=== PATIENT | male | born 1930 | race Hispanic/Latino ===

== ENCOUNTER 2017-05-21 12:02 | Inpatient (IN) | payer MEDICARE, MEDICAID ==
--- OUTSIDE RECORDS SUMMARY | 2017-05-21 12:05 | XMS | Clinical Summary ---
:1930 Author Organization [facility] Address [address] [place] [address] Phone Care Team Providers Name Role Phone , Primary Care Provider Unavailable Allergies Not on File Current Medications Not on file Active Problems Not on file Social History Tobacco Use Types Packs/Day Years Used Date Never Assessed Sex Assigned at Date Recorded Not on file Last Filed Vital Signs Not on file Plan of Treatment Not on file Results Not on filefrom Last 3 Months
[2017-05-21 12:34] LABS: #Basophils 0.1 thou/uL (0.0-0.2); #Eosinphils 0.1 thou/uL (0.0-0.7); #Monocytes 0.2 thou/uL (0.11-0.59); #Neutrophils 7.1 thou/uL (1.40-6.50); %Basophils 0.6 % (0.0-1.0); %Eosinophils 0.6 % (0.0-10.0); %Lymphocytes 21.4 % (21.0-51.0); %Monocytes 2.1 % (0.0-10.0); Mean Platelet Volume 7.2 fL (7.4-10.4); White Blood Cell (WBC) Count 9.4 thou/uL (4.8-10.8)
[2017-05-21 12:59] LABS: ALT (SGPT) 14 U/L (8-55); AST (SGOT) 33 U/L (5-34); Alkaline Phosphatase 80 U/L (40-150); Anion Gap 13 mmol/L (10-20); BUN (Urea Nitrogen) 22 mg/dL (8.4-25.7); Bilirubin, Total 0.6 mg/dL (0.2-1.2); CK (CPK) 327 U/L (30-200); Calc. Creatinine Clearance 0 mL/min (70-130); Calcium 9.3 mg/dL (7.8-10.44); Carbon Dioxide 23 mmol/L (23-31); Chloride 102 mmol/L (98-107); Estimated GFR-MDRD 56; Globulin 3.8 g/dL (2.4-3.5); Lipase 13 U/L (8-78); Protein, Total 7.8 g/dL (5.8-8.1)
--- NOTE | 2017-05-21 13:15 | RAD ---
CHEST ONE VIEW: HISTORY: Chest pain. COMPARISON: 02/09/2014 FINDINGS: The cardiac silhouette is magnified by projection. The pulmonary vasculature is unremarkable. Mild linear atelectasis at the left base is stable. Calcified granuloma at the left apex indicates prio r healed granulomatous disease. There is no lobar consolidation or evidence of pneumothorax. IMPRESSION: Chronic type findings are stable. POS: [facility]
[2017-05-21] MEDS ORDERED: Ondansetron HCl/PF 4 MG/2 ML Vial ONE (14:12)
[2017-05-21] MEDS ORDERED: Enoxaparin Sodium 60 MG/0.6 ML SYRINGE ONE (14:12)
[2017-05-21] MEDS ORDERED: Nitroglycerin 2% Ointment 1 INCH/1 GM Packet ONE (14:12)
[2017-05-21] MEDS ORDERED: Metoprolol Tartrate 25 MG TAB ONE (14:12)
[2017-05-21] MEDS ORDERED: Nitroglycerin 0.4 MG TAB (25 Tab Bottle) ONE (14:12)
[2017-05-21] MEDS ORDERED: Mag-Al 1200 mg/1200 mg/30 ML UDCUP ONE (15:01)
[2017-05-21] MEDS ORDERED: Lidocaine Viscous Sol 2% 15 ml UD Cup ONE (15:01)
--- NOTE | 2017-05-21 15:23 | HP ---
PRIMARY CARE PHYSICIAN: Gladys Zhang M.D./Steven Grigsby M.D. REASON FOR ADMISSION: Non-ST elevation myocardial infarction. HISTORY OF PRESENT ILLNESS: An 87-year-old male with a history of dyslipidemia, benign enl argement of prostate, and hypothyroidism, who came to the emergency room with complaint of epigastri c/chest pain. The patient woke up around 4:00 a.m. this morning with complaint of substernal chest pain. At that time, the patient's gave him herbal tree and the patient initially felt little bit better, but after that the patient was having severe epigastric pain about 7/10 in intensity without any radiati ng, associated with nausea, diaphoresis, and mild shortness of breath. The pain persisted for about couple of hours and subsequently they saw primary care physician who advised him to go to the emerg ency room for evaluation. When I saw this patient in the emergency room, his pain is reduced, but still there. He denies any radiation. He denies any fever or chills. He denies any relation of chest discomfort with food, re spiration or activity. He denies any palpitations or syncope. Primary care physician's office gave him aspirin. In the emergency room, workup showed EKG which sh owed nonspecific ST-T changes and significantly abnormal troponin. At this point, the patient is be ing admitted to telemetry unit for non-ST elevation CO. The patient's reports that he had a stress test about [address] De La O which was normal. He denies any melena or hematochezia. At home, he is able to do all routine activities of life. He never had this type of problem in the past. REVIEW OF SYSTEMS: The following complete review of systems was negative, unless otherwise mentione d in the HPI or below: Constitutional: Weight loss or gain, ability to conduct usual activities. Skin: Rash, itching. Eyes: Double vision, pain. ENT/Mouth: Nose bleeding, neck stiffness, pain, tenderness. Cardiovascular: Palpitations, dyspnea on exertion, orthopnea. Respiratory: Shortness of breath, wheezing, cough, hemoptysis, fever or night sweats. Gastrointestinal: Poor appetite, abdominal pain, heartburn, nausea, vomiting, constipation, or diar bert. Genitourinary: Urgency, frequency, dysuria, nocturia. Musculoskeletal: Pain, swelling. Neurologic/Psychiatric: Anxiety, depression. Allergy/Immunologic: Skin rash, bleeding tendency. Please see my HPI for pertinent positives and negatives. All other review of system reviewed and ne gative except as mentioned in the HPI. PAST MEDICAL HISTORY: Benign enlargement of prostate, hypothyroidism, dyslipidemia, chronic low charissa k pain, allergic rhinitis, and senile dementia. PAST PSYCHIATRIC HISTORY: Anxiety. PAST SURGICAL HISTORY: Hernia repair in 2000 and gallbladder surgery in 2007. FAMILY HISTORY: Mother by age of 45 from kidney related disease. One sibling brother pass ed away from stomach cancer. One sibling sister from heart problem and pneumonia. SOCIAL HISTORY: The patient is , lives at home with . No history of tobacco, alcohol or illicit drug abuse. ALLERGIES: No known drug allergies. EMERGENCY ROOM COURSE: Reviewed. CURRENT HOME MEDICATIONS: Vitamin B12 1000 mcg p.o. daily, Osteo Bi-Flex 1 tablet, Proscar 5 mg mable ly, Flomax 0.4 mg p.o. daily, Aricept 5 mg p.o. at bedtime, and Synthroid 75 mcg p.o. daily. PHYSICAL EXAMINATION: VITAL SIGNS: On arrival, blood pressure 137/63, pulse 57, respiratory rate 16, temperature 98.0, sa turation 96% on room air, weight 61.2 kilograms. GENERAL: The patient is currently alert and awake, no obvious acute distress on room air. HEENT: Head: Normocephalic and atraumatic. Eyes: Pupils round and reactive to light. Extraocula r muscles are intact. ENT: Oropharynx within normal limits. Moist mucous membranes. No oral lesi ons. No pharyngeal erythema, no exudate. NECK: Supple. Range of motion is normal. No meningeal signs of irritation, no JVD, no thyromegaly , no carotid bruit. LUNGS: Clear to auscultation without any rhonchi or rales. CARDIAC: S1, S2 regular, bradycardia. No murmur, no gallop, no rub. ABDOMEN: Soft, bowel sounds present, nondistended. No organomegaly, no mass, no suprapubic tendern ess, no Woodall sign. BACK: Unremarkable, no CVA tenderness. EXTREMITIES: Upper extremity: Passive movements of all joints are normal. Lower extremities: No edema. Good peripheral pulsation. SKIN: No skin rash. HEMATOLOGICAL SYSTEM: No lymphadenopathy. PSYCHIATRIC: Normal affect. SIGNIFICANT LABS: EKG based on my review, sinus bradycardia, nonspecific ST-T changes. CBC: WBC 9 .4, hemoglobin 15.5, and platelet 236. BMP: Sodium 134, potassium 4.1, chloride 102, carbon dioxid e 23, anion gap 13, BUN 22, creatinine 1.23, glucose 137, and calcium 9.3. LFT: AST 33, ALT 14, al kaline phosphatase 80, albumin 4.0. CK 327, CK-MB 44.6, and troponin I 1.140. Lipase 13. ASSESSMENT AND PLAN: 1. Non-ST elevation myocardial infarction. This patient's presentation of epigastric and substerna l chest discomfort with nausea, diaphoresis, and shortness of breath and mild EKG changes along with significantly abnormal troponin, all consistent with non-ST elevation myocardial infarction. This patient will need admission. We will keep on telemetry floor. Cardiology will be consulted and he will need a cardiac catheterization. We will keep him n.p.o. until cleared by Cardiology to start d iet. Otherwise, we will keep him n.p.o. after midnight to do cardiac catheterization tomorrow. We will do echocardiography. Meanwhile, we will continue with aspirin 325 mg p.o. daily, nitropatch q. 8 hourly, Lovenox 1 mg per kg subcu twice daily. We will start Lipitor 40 mg p.o. at bedtime and ch jael lipid profile for risk stratification. We will also check thyroid function test. 2. Dyslipidemia. We are starting Lipitor 40 mg p.o. at bedtime and check lipid profile tomorrow. 3. History of hypothyroidism. We will check TSH and will verify his home medication and then start thyroid medication. 4. History of benign prostatic hyperplasia. We will verify his home medication and then we will st art prostate medicine if he is taking at home. 5. Senile dementia, currently stable. 6. Deep venous thrombosis prophylaxis. The patient is already on full dose of Lovenox therapy. 7. Gastrointestinal prophylaxis. Pepcid 20 mg p.o. b.i.d. 8. Code status: The patient is FULL CODE. The patient's is surrogate decision maker. Disposition plan based on clinical course. We are expecting the patient's stay in hospital more sneha n 2 midnights. Plan of care discussed with the patient and family member at bedside in the emergenc y room.
[2017-05-21 15:58] LABS: Troponin I 3.479 ng/mL (< 0.028)
[2017-05-21] MEDS ORDERED: HYDROcodone/Acetaminophen 5/325 mg Tablet PO PRN (16:57)
[2017-05-21] MEDS ORDERED: Senokot 8.6 MG TAB PO PRN (16:57)
[2017-05-21] MEDS ORDERED: Sodium Chloride 0.65% Nasal 44 ML BOT EA NARE PRN (16:57)
[2017-05-21] MEDS ORDERED: Diabetic Tussin 200 MG/10 ML UDCUP PO PRN (16:57)
[2017-05-21] MEDS ORDERED: Artificial Tears 18 DROP/0.9 ML EA EYE PRN (16:57)
[2017-05-21] MEDS ORDERED: Loratadine 10 MG TAB PO PRN (16:57)
[2017-05-21] MEDS ORDERED: Calcium Carbonate 500 MG ChewTAB PO PRN (16:57)
[2017-05-21] MEDS ORDERED: Mag-Al 1200 mg/1200 mg/30 ML UDCUP PO PRN (16:57)
[2017-05-21] MEDS ORDERED: Loperamide HCl 2 MG CAP PO PRN (16:57)
[2017-05-21] MEDS ORDERED: Nitroglycerin 0.4 MG TAB (25 Tab Bottle) SL PRN (16:57)
[2017-05-21] MEDS ORDERED: Eucerin (Mineral Oil/Petrolatum,White) 30 gm Jar TOP PRN (16:57)
[2017-05-21] MEDS ORDERED: Milk Of Magnesia 30 ML UDCUP PO PRN (16:57)
[2017-05-21] MEDS ORDERED: Ondansetron ODT 4 MG TAB PO PRN (16:57)
[2017-05-21] MEDS ORDERED: Zolpidem Tartrate 5 MG TAB PO PRN (16:57)
[2017-05-21] MEDS ORDERED: Ondansetron HCl/PF 4 MG/2 ML Vial IVP PRN (16:57)
--- NOTE | 2017-05-21 18:44 | CON ---
DATE OF CONSULTATION: 05/21/2017 HISTORY OF PRESENT ILLNESS: This 87-year-old gentleman who presented with epigastric and chest disc omfort. The patient has no previous cardiac history and had previously been evaluated for dyspnea. He underwent an echocardiogram which was apparently unremarkable. The patient was in his usual sta te of health when earlier this morning he developed epigastric and chest discomfort. There was a pe rsistent discomfort. He went to see his primary physician, who was sent him to the emergency room. The patient received nitroglycerin and morphine with eventual resolution of his discomfort. The margarita arce denies having any present chest discomfort. PAST MEDICAL HISTORY: Significant for: 1. Hypertension. 2. Dyslipidemia. 3. Dementia. PAST SURGICAL HISTORY: He has had hernia repair and cholecystectomy. SOCIAL HISTORY: He is a nonsmoker. MEDICATIONS: Aricept 5 daily, Flomax 0.4 daily, Proscar 40 daily, and Synthroid 75 daily. ALLERGIES: No known drug allergies. FAMILY HISTORY: Positive family history of coronary artery disease. REVIEW OF SYSTEMS: Noticeable for urgency, short-term memory loss. Ten-point system otherwise unre markable. No history of easy bruising or bleeding. PHYSICAL EXAMINATION: GENERAL: Elderly gentleman in no acute distress. VITAL SIGNS: Blood pressure is 150/70. NECK: Showed no jugular venous distention. LUNGS: Clear to auscultation. HEART: Regular rate and rhythm, normal S1, S2, no murmurs. ABDOMEN: Nondistended. EXTREMITIES: Show no edema. SKIN: Warm and dry. NEUROLOGIC: Nonfocal. VASCULAR: Radial pulses 2+. LABORATORY DATA: White blood count 9.6, hemoglobin 15.5, hematocrit 47.0, platelets 236. Sodium is 134, potassium 4.1, chloride 102, bicarbonate 23, BUN 20, creatinine 1.2, glucose 137. CPK MB was 44.6. Troponin is 3.4. EKG revealed sinus bradycardia, otherwise normal ECG. IMPRESSION: 1. Non-Q-wave myocardial infarction. 2. Hypertension. 3. Dyslipidemia. 4. Dementia. This gentleman presents with a non-Q-wave myocardial infarction with his advanced age and dementia. We would recommend medical therapy. The patient is being treated with aspirin, beta jaspal therap y and nitro paste. We would recommend adding lipid lowering medication. We will obtain an echocard iogram. We will follow this patient with you through his hospitalization.
[2017-05-21 19:24] LABS: Troponin I 8.818 ng/mL (< 0.028)
[2017-05-21] MEDS ORDERED: Sodium Chloride 0.9% 10 ML ONE (20:14)
[2017-05-21] MEDS ORDERED: Metoprolol Tartrate 25 MG TAB PO SCH (21:00)
[2017-05-21] MEDS ORDERED: Enoxaparin Sodium 80 MG/0.8 ML SYRINGE SC SCH (21:00)
[2017-05-21] MEDS ORDERED: Atorvastatin Calcium 20 MG TAB PO SCH (21:00)
[2017-05-21] MEDS: Tamsulosin HCl 0.4 MG CAP PO SCH (21:21)
[2017-05-21] MEDS: Metoprolol Tartrate 25 MG TAB PO SCH (21:21)
[2017-05-21] MEDS: Atorvastatin Calcium 40 MG TAB PO SCH (21:21)
[2017-05-21] MEDS: Enoxaparin Sodium 60 MG/0.6 ML SYRINGE SC SCH (21:23)
[2017-05-21] MEDS: Famotidine 20 MG TAB PO SCH (21:23)
[2017-05-21] MEDS: Nitroglycerin 2% Ointment 1 INCH/1 GM Packet TOP SCH (21:23)
[2017-05-21] MEDS ORDERED: Nitroglycerin 2% Ointment 1 INCH/1 GM Packet TOP SCH (22:00)
[2017-05-22 05:14] LABS: #Eosinphils 0.7 thou/uL (0.0-0.7); #Lymphocytes 3.1 thou/uL (1.20-3.40); #Monocytes 0.8 thou/uL (0.11-0.59); #Neutrophils 6.4 thou/uL (1.40-6.50); %Basophils 0.2 % (0.0-1.0); %Eosinophils 6.1 % (0.0-10.0); %Lymphocytes 28.1 % (21.0-51.0); %Monocytes 7.1 % (0.0-10.0); Hematocrit 42.8 % (42.0-52.0); Mean Platelet Volume 7.9 fL (7.4-10.4); Red Blood Cell (RBC) Count 4.57 mill/uL (4.70-6.10); White Blood Cell (WBC) Count 10.9 thou/uL (4.8-10.8)
[2017-05-22 05:15] LABS: Hematocrit 42.5 % (42.0-52.0)
[2017-05-22 05:42] LABS: Anion Gap 13 mmol/L (10-20); BUN (Urea Nitrogen) 19 mg/dL (8.4-25.7); Calc. Creatinine Clearance 42 mL/min (70-130); Calcium 8.5 mg/dL (7.8-10.44); Carbon Dioxide 22 mmol/L (23-31); Chloride 105 mmol/L (98-107); Cholesterol 214 mg/dl (< 200 Desired); Estimated GFR-MDRD 71; LDL Cholesterol, Calculated 148 mg/dL
[2017-05-22] MEDS: Nitroglycerin 2% Ointment 1 INCH/1 GM Packet TOP SCH ×3 (06:00→20:35)
[2017-05-22] MEDS: Famotidine 20 MG TAB PO SCH ×2 (08:34→20:35)
[2017-05-22] MEDS: Metoprolol Tartrate 25 MG TAB PO SCH ×2 (08:34→20:35)
[2017-05-22] MEDS: Lisinopril 2.5 MG TAB PO SCH (08:34)
[2017-05-22] MEDS: Aspirin 325 mg Enteric Coated Tablet PO SCH (08:35)
[2017-05-22] MEDS ORDERED: Aspirin 325 MG TAB PO SCH (09:00)
[2017-05-22] MEDS ORDERED: Communication Order-Pharmacy FS SCH (10:30)
[2017-05-22] MEDS: Sodium Chloride 0.9% 1,000 ML IV SCH ×2 (10:57→20:36)
[2017-05-22 11:18] LABS: Magnesium 1.9 mg/dL (1.6-2.6)
[2017-05-22] MEDS ORDERED: Midazolam HCl 2 mg/2 ml Vial ONE (12:41)
[2017-05-22] MEDS ORDERED: Fentanyl 100 MCG/2 ML VIAL ONE (12:41)
--- NOTE | 2017-05-22 12:48 | PRG ---
DATE OF SERVICE: 05/22/2017 Mr. Torres's symptoms have improved. No recurrent episodes of chest pain. His peak troponin was 8. I had a long discussion with the family on how to proceed. He has no previous history of underlying coronary disease. I presented options including coronary angiography versus medical therapy. Afte r outlining both and after discussion with their immediate family, it was decided to proceed with co ronary angiography. I discussed the procedure in full detail with the patient as well as with his w cora. The risks of the procedure included, but are not limited to the following: , stroke, [place], need for emergency surgery, loss of limb, bleeding, and infection, as well as a r eaction to the dye causing kidney failure and needing long-term dialysis. I also discussed the risk s of PCI to include all of the above including coronary dissection and perforation in addition to ac trey stent thrombosis and restenosis. All questions about the procedure were answered. Given the ab ove, the patient agreed to proceed with coronary angiography and possible PCI. All questions were answered. I also discussed drug-coated versus non-drug coated stent placement. There is no contraindication, will proceed if needed. Further recommendations pending the above.
[2017-05-22] MEDS ORDERED: Acetaminophen/Codeine 30-300mg Tablet PO PRN ×2 (12:57)
[2017-05-22] MEDS ORDERED: Nitroglycerin 0.4 MG TAB (25 Tab Bottle) SL PRN (12:57)
[2017-05-22] MEDS ORDERED: traMADol HCl 50 MG TAB PO PRN (12:57)
[2017-05-22] MEDS: K-Phos Neutral 250 MG TAB PO SCH ×3 (13:00→20:34)
[2017-05-22] MEDS ORDERED: Sodium Chloride 0.9% 200 ML IV SCH (13:00)
[2017-05-22] MEDS: Enoxaparin Sodium 60 MG/0.6 ML SYRINGE SC SCH (13:38)
[2017-05-22] MEDS ORDERED: Iopamidol 370 76% 100 ML VIAL ONE (14:32)
[2017-05-22] MEDS: Tamsulosin HCl 0.4 MG CAP PO SCH (20:35)
[2017-05-22] MEDS: Atorvastatin Calcium 40 MG TAB PO SCH (20:35)
--- NOTE | 2017-05-22 22:23 | PDOC.PN ---
- Subjective Encounter Start Date: 05/22/17 Encounter Start Time: 10:30 Patient seen and examined. No new complaints. No overnight events. Cath today. No CP - Objective Resuscitation Status: Resuscitation Status FULL:Full Resuscitation MAR Reviewed: Yes Vital Signs & Weight: Vital Signs (12 hours) Temp Pulse Resp BP Pulse Ox 05/22/17 20:43 99.0 F 72 20 148/67 H 93 L 05/22/17 16:06 99.3 F 77 16 127/71 96 05/22/17 13:30 97.8 F 56 L 18 134/65 95 Weight Weight 128 lb 4.8 oz I&O: 05/21/17 05/22/17 05/23/17 06:59 06:59 06:59 Intake Total 210 538 Output Total 100 Balance 110 538 Result Diagrams: 05/23/17 05:21 05/23/17 05:21 Phys Exam - Physical Examination Constitutional: NAD Respiratory: no wheezing, no rhonchi Cardiovascular: RRR, no rub Gastrointestinal: soft, non-tender, positive bowel sounds Musculoskeletal: no edema Neurological: moves all 4 limbs Dx/Plan (1) NSTEMI (non-ST elevated myocardial infarction) Code(s): I21.4 - NON-ST ELEVATION (NSTEMI) MYOCARDIAL INFARCTION Status: Acute (2) BPH (benign prostatic hyperplasia) Code(s): N40.0 - BENIGN PROSTATIC HYPERPLASIA WITHOUT LOWER URINRY TRACT SYMP Status: Chronic (3) Dyslipidemia Code(s): E78.5 - HYPERLIPIDEMIA, UNSPECIFIED Status: Chronic (4) CKD (chronic kidney disease) stage 2, GFR 60-89 ml/min Code(s): N18.2 - CHRONIC KIDNEY DISEASE, STAGE 2 (MILD) Status: Chronic (5) HTN (hypertension) Code(s): I10 - ESSENTIAL (PRIMARY) HYPERTENSION Status: Chronic (6) Dementia Code(s): F03.90 - UNSPECIFIED DEMENTIA WITHOUT BEHAVIORAL DISTURBANCE Status: Chronic (7) Hypothyroidism Code(s): E03.9 - HYPOTHYROIDISM, UNSPECIFIED Status: Chronic - Plan cont current plan of care, DVT proph w/SCDs * Cont current meds as below * AM labs * Cardiology following * Cont to monitor * Cont ASA/Statins/Lovenox/ACEI * Cath today Review of Systems - Review of Systems Constitutional: negative: Fever, Chills, Sweats, Weakness, Malaise, Other Respiratory: negative: Cough, Dry, Shortness of Breath, Hemoptysis, SOB with Excertion, Pleuritic Pain, Sputum, Wheezing Cardiovascular: negative: Chest Pain, Palpitations, Orthopnea, Paroxysmal Noc. Dyspnea, Edema, Light Headedness, Other Gastrointestinal: negative: Nausea, Vomiting, Abdominal Pain, Diarrhea, Constipation, Melena, Hematochezia, Other - Medications/Allergies Allergies/Adverse Reactions: Allergies Allergy/AdvReac Type Severity Reaction Status Date / Time No Known Allergies Allergy Verified 05/21/17 17:03 Medications: Current Medications Acetaminophen (Tylenol) 650 mg PO Q4H PRN PRN Reason: Headache/Fever or Pain Acetaminophen/Codeine Phosphate (Tylenol #3) 1 tab PO Q4H PRN PRN Reason: Mild Pain (1-3) Acetaminophen/Codeine Phosphate (Tylenol #3) 2 tab PO Q4H PRN PRN Reason: Moderate Pain (4-6) Hydrocodone Bitart/Acetaminophen ([place] 5/325) 1 tab PO Q4H PRN PRN Reason: Moderate Pain (4-6) Al Hydroxide/Mg Hydroxide (Maalox) 30 ml PO Q6H PRN PRN Reason: Heartburn or Indigestion Artificial Tears (Tears Naturale) 0 drop EA EYE PRN PRN PRN Reason: Dry Eyes Aspirin (Ecotrin) 325 mg PO DAILY [facility], [facility] Last Admin: 05/22/17 08:35 Dose: Not Given Atorvastatin Calcium (Lipitor) 40 mg PO HS [facility], [facility] Last Admin: 05/22/17 20:35 Dose: 40 mg Calcium Carbonate (Tums) 1,000 mg PO Q4H PRN PRN Reason: Heartburn or Indigestion Famotidine (Pepcid) 20 mg PO BID [facility] Last Admin: 05/22/17 20:35 Dose: 20 mg Guaifenesin (Robitussin Sf) 200 mg PO Q4H PRN PRN Reason: Cough Hydralazine HCl (Apresoline) 10 mg SLOW IVP Q4H PRN PRN Reason: Systolic BP > 180 Sodium Chloride (Normal Saline 0.9%) 1,000 mls @ 100 mls/hr IV .Q10H [facility], [facility] Last Admin: 05/22/17 20:36 Dose: Not Given Lisinopril (Zestril) 2.5 mg PO DAILY [facility] Last Admin: 05/22/17 08:34 Dose: Not Given Loperamide HCl (Imodium) 2 mg PO PRN PRN PRN Reason: Diarrhea/Loose Stools Loratadine (Claritin) 10 mg PO DAILYPRN PRN PRN Reason: Sinus Symptoms Magnesium Hydroxide (Milk Of Magnesium) 30 ml PO DAILYPRN PRN PRN Reason: Constipation Metoprolol Tartrate (Lopressor) 12.5 mg PO BID [facility] Last Admin: 05/22/17 20:35 Dose: 12.5 mg Mineral Oil/White Petrolatum (Eucerin Cream) 0 gm TOP BIDPRN PRN PRN Reason: Dry Skin Nitroglycerin (Nitro-Bid 2% Ointment) 0.5 inch TOP Q8HR [facility] Last Admin: 05/22/17 20:35 Dose: 0.5 inch Nitroglycerin (Nitrostat) 0.4 mg SL Q5MIN PRN PRN Reason: Chest Pain Ondansetron HCl (Zofran Odt) 4 mg PO Q6H PRN PRN Reason: Nausea/Vomiting Ondansetron HCl (Zofran) 4 mg IVP Q6H PRN PRN Reason: Nausea/Vomiting Phosphorus (Kphos Neutral) 500 mg PO QID-WM [facility] Last Admin: 05/22/17 20:34 Dose: 500 mg Senna (Senokot) 2 tab PO HSPRN PRN PRN Reason: Constipation Sodium Chloride ([employer] Nasal [place] 0.65%) 0 ml EA NARE QIDPRN PRN PRN Reason: Nasal Congestion Sodium Chloride (Flush - Normal Saline) 10 ml IVF Q12HR [facility] Last Admin: 05/22/17 20:24 Dose: Not Given Sodium Chloride (Flush - Normal Saline) 10 ml IVF PRN PRN PRN Reason: Saline Flush Tamsulosin HCl (Flomax) 0.4 mg PO HS [facility] Last Admin: 05/22/17 20:35 Dose: 0.4 mg Tramadol HCl (Ultram) 50 mg PO Q6H PRN PRN Reason: Moderate Pain (4-6) Zolpidem Tartrate (Ambien) 5 mg PO HSPRN PRN PRN Reason: Insomnia
[2017-05-23 05:38] LABS: #Eosinphils 0.4 thou/uL (0.0-0.7); #Lymphocytes 3.2 thou/uL (1.20-3.40); #Monocytes 1.1 thou/uL (0.11-0.59); #Neutrophils 7.1 thou/uL (1.40-6.50); %Basophils 0.3 % (0.0-1.0); %Eosinophils 3.5 % (0.0-10.0); %Lymphocytes 26.8 % (21.0-51.0); %Monocytes 9.5 % (0.0-10.0); Hematocrit 41.7 % (42.0-52.0); Mean Platelet Volume 7.5 fL (7.4-10.4); Red Blood Cell (RBC) Count 4.46 mill/uL (4.70-6.10); White Blood Cell (WBC) Count 11.8 thou/uL (4.8-10.8)
[2017-05-23] MEDS: Nitroglycerin 2% Ointment 1 INCH/1 GM Packet TOP SCH ×2 (05:39→14:29)
[2017-05-23 06:03] LABS: Anion Gap 9 mmol/L (10-20); BUN (Urea Nitrogen) 19 mg/dL (8.4-25.7); Calc. Creatinine Clearance 34 mL/min (70-130); Carbon Dioxide 23 mmol/L (23-31); Chloride 106 mmol/L (98-107); Estimated GFR-MDRD 57; Magnesium 1.8 mg/dL (1.6-2.6); Phosphorus 3.1 mg/dL (2.3-4.7)
[2017-05-23] MEDS: K-Phos Neutral 250 MG TAB PO SCH ×6 (08:51→20:16)
[2017-05-23] MEDS: Lisinopril 2.5 MG TAB PO SCH (08:51)
[2017-05-23] MEDS: Metoprolol Tartrate 25 MG TAB PO SCH ×2 (08:51→20:17)
[2017-05-23] MEDS: Famotidine 20 MG TAB PO SCH ×2 (08:51→20:17)
[2017-05-23] MEDS: Aspirin 325 mg Enteric Coated Tablet PO SCH (08:51)
[2017-05-23] MEDS: Sodium Chloride 0.9% 1,000 ML IV SCH ×4 (08:52→23:39)
[2017-05-23 09:24] LABS: Bilirubin Negative (Negative); Blood, Urine Negative (Negative); Glucose, Urine (Dipstick) Negative (Negative); Ketone, Urine Negative (Negative); Nitrite Negative (Negative); Protein, Urine (Dipstick) Negative (Neg-Trace); Urobilinogen 0.2 mg/dL (0.2-1.0)
[2017-05-23 09:26] LABS: Bacteria/HPF None Seen HPF (None Seen); Hyaline Casts/LPF 0-3 HYALINE CAST LPF (0-3 Hyaline); RBC/HPF 0-3 HPF (0-3); Squamous Epithelial None Seen HPF (0-3); WBC/HPF 0-3 HPF (0-3)
[2017-05-23] MEDS ORDERED: Loperamide HCl 2 MG CAP PO PRN (11:04)
[2017-05-23] MEDS ORDERED: ISOVUE-370 76%-LOCM 1 ML ONE (15:05)
[2017-05-23] MEDS: Clopidogrel Bisulfate 300 MG TAB PO SCH ×2 (16:36→18:21)
--- NOTE | 2017-05-23 16:52 | CON ---
DATE OF SERVICE: 05/23/2017 SUBJECTIVE: Mr. Torres is doing well. No recurrent episodes of chest pain or pressure noted. No sh ortness of breath. PHYSICAL EXAMINATION: VITAL SIGNS: Blood pressure 119/57, pulse 58, and temperature 98. LUNGS: Clear to auscultation. CARDIAC: Regular rate and rhythm. ABDOMEN: Soft, nontender, and nondistended. EXTREMITIES: No edema. IMPRESSION: 1. Non-Q wave myocardial infarction. 2. Severe multivessel disease. 3. Underlying dementia. RECOMMENDATIONS: I had a long discussion today with the family. Options included bypass surgery ve rsus percutaneous intervention versus medical therapy. After outlining all 3 options including risk s and benefits of each, the family decided to opt for medical therapy. They are not interested in b ypass surgery, given his comorbidities, age and underlying dementia. I did contemplate proceeding w ith stent placement to the LAD and circumflex artery. Unfortunately, I am unsure whether his non-Q [place] originated from the [place] [place] or LAD. Overall, LVEF does appear normal on recent echo. At this poi nt, we will proceed with medical therapy per family's wishes. We will add low dose nitroglycerin fo r symptom relief. Decrease aspirin to 81 q.a.m. and add Plavix. Continue metoprolol in addition to atorvastatin. If stable from my standpoint, it would be okay for discharge home in a.m. with close outpatient followup.
[2017-05-23 17:00] LABS: #Basophils 0.1 thou/uL (0.0-0.2); #Lymphocytes 3.6 thou/uL (1.20-3.40); #Monocytes 1.2 thou/uL (0.11-0.59); #Neutrophils 6.2 thou/uL (1.40-6.50); %Basophils 0.8 % (0.0-1.0); %Eosinophils 8.5 % (0.0-10.0); %Lymphocytes 29.4 % (21.0-51.0); %Monocytes 9.9 % (0.0-10.0); Hematocrit 40.8 % (42.0-52.0); Mean Platelet Volume 7.8 fL (7.4-10.4); Red Blood Cell (RBC) Count 4.33 mill/uL (4.70-6.10); White Blood Cell (WBC) Count 12.1 thou/uL (4.8-10.8)
[2017-05-23 17:03] LABS: PTT 32.9 SEC (22.9-36.1); Prothrombin Time 14.1 SEC (12.0-14.7)
[2017-05-23 17:16] LABS: ALT (SGPT) 20 U/L (8-55); AST (SGOT) 58 U/L (5-34); Alkaline Phosphatase 69 U/L (40-150); Anion Gap 11 mmol/L (10-20); BUN (Urea Nitrogen) 24 mg/dL (8.4-25.7); Bilirubin, Total 0.6 mg/dL (0.2-1.2); Calc. Creatinine Clearance 26 mL/min (70-130); Calcium 7.7 mg/dL (7.8-10.44); Carbon Dioxide 22 mmol/L (23-31); Chloride 108 mmol/L (98-107); Estimated GFR-MDRD 41; Globulin 2.8 g/dL (2.4-3.5)
[2017-05-23 17:23] LABS: Troponin I 17.388 ng/mL (< 0.028)
[2017-05-23] MEDS ORDERED: Sodium Chloride 0.9% 1,000 ML IV SCH (17:30)
--- NOTE | 2017-05-23 18:13 | PDOC.PN ---
- Subjective Encounter Start Date: 05/23/17 Encounter Start Time: 10:00 Patient seen and examined. No new complaints. No overnight events. - Objective Resuscitation Status: Resuscitation Status FULL:Full Resuscitation MAR Reviewed: Yes Vital Signs & Weight: Vital Signs (12 hours) Temp Pulse Pulse Pulse Resp BP BP 05/23/17 17:25 98.4 F 66 18 05/23/17 16:16 98.1 F 63 15 05/23/17 13:14 75 63 114/58 L 125/61 05/23/17 11:21 98.0 F 58 L 16 05/23/17 08:51 66 05/23/17 08:48 98.0 F 66 19 05/23/17 07:44 99.7 F H 69 18 BP BP Pulse Ox Pulse Ox Pulse Ox 05/23/17 17:25 119/60 98 05/23/17 16:16 119/57 L 96 05/23/17 13:14 94 L 96 05/23/17 11:21 119/57 L 94 L 05/23/17 08:51 05/23/17 08:48 122/58 L 95 05/23/17 07:44 95 Weight Weight 126 lb 4.8 oz I&O: 05/22/17 05/23/17 05/24/17 06:59 06:59 06:59 Intake Total 210 1438 Output Total 100 75 Balance 110 1363 Result Diagrams: 05/23/17 16:49 05/23/17 16:49 EKG Reviewed by me: Yes (Tele SR) Phys Exam - Physical Examination Constitutional: NAD Respiratory: no wheezing, no rhonchi Cardiovascular: RRR, no rub Gastrointestinal: soft, non-tender, positive bowel sounds Musculoskeletal: no edema Neurological: non-focal, moves all 4 limbs Psychiatric: A&O x 3 Dx/Plan (1) NSTEMI (non-ST elevated myocardial infarction) Code(s): I21.4 - NON-ST ELEVATION (NSTEMI) MYOCARDIAL INFARCTION Status: Acute Comment: 3 V CAD (2) BPH (benign prostatic hyperplasia) Code(s): N40.0 - BENIGN PROSTATIC HYPERPLASIA WITHOUT LOWER URINRY TRACT SYMP Status: Chronic (3) Dyslipidemia Code(s): E78.5 - HYPERLIPIDEMIA, UNSPECIFIED Status: Chronic (4) CKD (chronic kidney disease) stage 2, GFR 60-89 ml/min Code(s): N18.2 - CHRONIC KIDNEY DISEASE, STAGE 2 (MILD) Status: Chronic (5) HTN (hypertension) Code(s): I10 - ESSENTIAL (PRIMARY) HYPERTENSION Status: Chronic (6) Dementia Code(s): F03.90 - UNSPECIFIED DEMENTIA WITHOUT BEHAVIORAL DISTURBANCE Status: Chronic (7) Hypothyroidism Code(s): E03.9 - HYPOTHYROIDISM, UNSPECIFIED Status: Chronic - Plan cont current plan of care, plan discussed w/ family, DVT proph w/SCDs * Await Cardio input * Cont to monitor * Cont ASA/BB/Statins * DC Ntg patch * AM labs Review of Systems - Review of Systems Constitutional: negative: Fever, Chills, Sweats, Weakness, Malaise, Other Respiratory: negative: Cough, Dry, Shortness of Breath, Hemoptysis, SOB with Excertion, Pleuritic Pain, Sputum, Wheezing Cardiovascular: negative: Chest Pain, Palpitations, Orthopnea, Paroxysmal Noc. Dyspnea, Edema, Light Headedness, Other Gastrointestinal: negative: Nausea, Vomiting, Abdominal Pain, Diarrhea, Constipation, Melena, Hematochezia, Other - Medications/Allergies Allergies/Adverse Reactions: Allergies Allergy/AdvReac Type Severity Reaction Status Date / Time No Known Allergies Allergy Verified 05/21/17 17:03 Medications: Current Medications Acetaminophen (Tylenol) 650 mg PO Q4H PRN PRN Reason: Headache/Fever or Pain Hydrocodone Bitart/Acetaminophen ([place] 5/325) 1 tab PO Q4H PRN PRN Reason: Moderate Pain (4-6) Al Hydroxide/Mg Hydroxide (Maalox) 30 ml PO Q6H PRN PRN Reason: Heartburn or Indigestion Artificial Tears (Tears Naturale) 0 drop EA EYE PRN PRN PRN Reason: Dry Eyes Aspirin (Aspirin Chewable) 81 mg PO DAILY [facility] Atorvastatin Calcium (Lipitor) 40 mg PO HS [facility] Last Admin: 05/22/17 20:35 Dose: 40 mg Calcium Carbonate (Tums) 1,000 mg PO Q4H PRN PRN Reason: Heartburn or Indigestion Clopidogrel Bisulfate (Plavix) 300 mg PO NOW [facility] Stop: 05/23/17 18:30 Clopidogrel Bisulfate (Plavix) 75 mg PO DAILY [facility] Famotidine (Pepcid) 20 mg PO BID [facility] Last Admin: 05/23/17 08:51 Dose: 20 mg Guaifenesin (Robitussin Sf) 200 mg PO Q4H PRN PRN Reason: Cough Heparin Sodium (Porcine) (Heparin) 5,000 units SC Q12HR [facility] Hydralazine HCl (Apresoline) 10 mg SLOW IVP Q4H PRN PRN Reason: Systolic BP > 180 Sodium Chloride (Normal Saline 0.9%) 1,000 mls @ 150 mls/hr IV .Q6H40M [facility] Isosorbide Mononitrate (Imdur Er) 30 mg PO DAILY [facility] Loperamide HCl (Imodium) 2 mg PO PRN PRN PRN Reason: Diarrhea/Loose Stools Loratadine (Claritin) 10 mg PO DAILYPRN PRN PRN Reason: Sinus Symptoms Magnesium Hydroxide (Milk Of Magnesium) 30 ml PO DAILYPRN PRN PRN Reason: Constipation Metoprolol Tartrate (Lopressor) 12.5 mg PO BID [facility] Last Admin: 05/23/17 08:51 Dose: 12.5 mg Mineral Oil/White Petrolatum (Eucerin Cream) 0 gm TOP BIDPRN PRN PRN Reason: Dry Skin Nitroglycerin (Nitrostat) 0.4 mg SL Q5MIN PRN PRN Reason: Chest Pain Ondansetron HCl (Zofran Odt) 4 mg PO Q6H PRN PRN Reason: Nausea/Vomiting Ondansetron HCl (Zofran) 4 mg IVP Q6H PRN PRN Reason: Nausea/Vomiting Phosphorus (Kphos Neutral) 500 mg PO QID-[facility] Last Admin: 05/23/17 18:08 Dose: Not Given Potassium Chloride (Klor-Con) 20 meq PO QAM-[facility] Last Admin: 05/23/17 08:52 Dose: 20 meq Senna (Senokot) 2 tab PO HSPRN PRN PRN Reason: Constipation Sodium Chloride ([place] Nasal [place] 0.65%) 0 ml EA NARE QIDPRN PRN PRN Reason: Nasal Congestion Sodium Chloride (Flush - Normal Saline) 10 ml IVF Q12HR [facility] Last Admin: 05/23/17 08:52 Dose: Not Given Sodium Chloride (Flush - Normal Saline) 10 ml IVF PRN PRN PRN Reason: Saline Flush Tamsulosin HCl (Flomax) 0.4 mg PO [facility] Last Admin: 05/22/17 20:35 Dose: 0.4 mg Tramadol HCl (Ultram) 50 mg PO Q6H PRN PRN Reason: Moderate Pain (4-6)
--- NOTE | 2017-05-23 18:14 | PDOC.EVN ---
Event Note - Event Note Event Note: Stroke alert was called due to new RUE weakness. CT brain/CTA done. Repeat labs noted. Will start IV hydration for AILYN. AM labs
--- NOTE | 2017-05-23 19:15 | CT ---
CT OF HEAD NONCONTRAST: 05/23/17 CLINICAL HISTORY: New right arm numbness. FINDINGS: There is no evidence of acute intracranial hemorrhage, mass effect, midline shift or significant ishmael triculomegaly. There is mild age related parenchymal volume loss. Head CT is grossly stable to . IMPRESSION: No acute intracranial hemorrhage or mass effect. Telephone call to findings placed to ordering physician, Nila Woodward at 1703 hours, 05/23/17 Code CR POS: LAUREN
--- NOTE | 2017-05-23 19:23 | CT ---
CTA HEAD WITH 3D VOLUME RENDERING CT NECK WITH 3D VOLUME RENDERING 05/23/17 CLINICAL HISTORY: New right arm numbness. FINDINGS: There is prominent, bulky noncalcified atheromatous plaque of the junction of the aortic arch and de scending thoracic aorta in addition to scattered vascular calcification. The bilateral subclavian ar teries are contrast opacified and there is a mild to moderate focal narrowing involving the proximal left subclavian artery due to noncalcified plaque at its origin arising from the above described bu lky plaque of the aorta. There is mild to moderate focal stenosis involving the brachiocephalic trun k and proximal aspect of right subclavian artery. There are tortuous bilateral common carotid arteri es with mild areas of atherosclerotic plaque and associated mild luminal narrowing. There is calcifi cation involving each carotid bifurcation. The bilateral cervical ICA revealed no high grade focal s tenosis or occlusion. Calcification present at each carotid terminus, mild in degree. No high grade focal stenosis involving either MCA. Sylvian branches are grossly symmetric, bilaterally. There is a dominant right vertebral artery. No high grade vertebral artery or basilar artery stenosis. Bilater al CONVEYANCER are grossly patent. There is a diffuse mild narrowing of the M1 segment left MCA, which could relate to early branching or could relate to a concentric mild narrowing, although there is no obvious focal luminal thrombus or high grade stenosis. there is a tiny triangular shaped contrast opacification at the undersurface of the terminal left ICA which likely relates to an infundibulum at the site of the small caliber P COM. The bilateral GIRISH reveal no high grade stenosis or occlusion. IMPRESSION: Scattered atherosclerotic disease as above, without a definitively evident high grade stenosis or oc clusion. POS: LAUREN
[2017-05-23] MEDS: Tamsulosin HCl 0.4 MG CAP PO SCH (20:16)
[2017-05-23] MEDS: Atorvastatin Calcium 40 MG TAB PO SCH (20:17)
[2017-05-23] MEDS ORDERED: Heparin 5,000 UNITS/ML VIAL SC SCH (21:00)
[2017-05-24] MEDS: Acetaminophen 325 MG TAB PO PRN ×2 (00:18→16:27)
[2017-05-24] MEDS ORDERED: Aspirin 300 MG Suppository ONE (03:04)
--- NOTE | 2017-05-24 03:13 | PDOC.PN ---
- Subjective Encounter Start Date: 05/24/17 Encounter Start Time: 02:40 Contacted by nursing at 0240 regarding recurrance of his RUE wekaness. asked to get the head CT stat. a few minutes later, Robert reported to nurses that he now has slurred speech. Aracely martin was called and i promptly came to the bedside for full eval. 0240 onset of symptoms. - Objective Resuscitation Status: Resuscitation Status FULL:Full Resuscitation MAR Reviewed: Yes Vital Signs & Weight: Vital Signs (12 hours) Temp Pulse Pulse Resp Resp BP BP 05/23/17 23:43 98.3 F 71 18 129/66 05/23/17 20:33 98.1 F 71 16 05/23/17 19:24 98.1 F 71 16 05/23/17 17:25 98.4 F 66 18 05/23/17 16:45 66 19 130/66 05/23/17 16:16 98.1 F 63 15 BP BP Pulse Ox Pulse Ox 05/23/17 23:43 95 05/23/17 20:33 138/68 95 05/23/17 19:24 95 05/23/17 17:25 119/60 98 05/23/17 16:45 98 05/23/17 16:16 119/57 L 96 Weight Weight 126 lb 4.8 oz I&O: 05/22/17 05/23/17 05/24/17 06:59 06:59 06:59 Intake Total 210 1438 890 Output Total 100 75 Balance 110 1363 890 Result Diagrams: 05/23/17 16:49 05/23/17 16:49 Additional Labs: Accuchecks 05/23/17 16:45 POC Glucose 87 Radiology Reviewed by me: Yes EKG Reviewed by me: Yes Phys Exam - Physical Examination Constitutional: NAD HEENT: PERRLA, moist MMs, sclera anicteric, oral pharynx no lesions Neck: no nodes, no JVD, supple, full ROM Respiratory: no wheezing, no rales, no rhonchi, clear to auscultation bilateral Cardiovascular: RRR, no significant murmur, no rub, gallop Gastrointestinal: soft, non-tender, no distention, positive bowel sounds Musculoskeletal: no edema DP and PT pulses not palpable, but feet warm, cap refill 3 sec slurrred speech per , tlaking in turkmen only LUE, BLE, bilaterla shoulder 5/5 strength. RUE ext/flex/miter saw operator 1/5. CN intac Lymphatic: no nodes Psychiatric: normal affect, A&O x 3 Dx/Plan (1) Stroke-like symptoms Code(s): R29.90 - UNSPECIFIED SYMPTOMS AND SIGNS INVOLVING THE NERVOUS SYSTEM Status: Acute Comment: cant fit the lesion, shoulder strength okay, remainder of arm not. give 300mg aspirin rectally, stat head CT, MRI orderedfor later. already on plavix. (2) NSTEMI (non-ST elevated myocardial infarction) Code(s): I21.4 - NON-ST ELEVATION (NSTEMI) MYOCARDIAL INFARCTION Status: Acute Comment: 3 V CAD (3) CKD (chronic kidney disease) stage 2, GFR 60-89 ml/min Code(s): N18.2 - CHRONIC KIDNEY DISEASE, STAGE 2 (MILD) Status: Chronic Comment: no dosage adjustment needed at present. (4) HTN (hypertension) Code(s): I10 - ESSENTIAL (PRIMARY) HYPERTENSION Status: Chronic Qualifiers: Hypertension type: essential hypertension Qualified Code(s): I10 - Essential (primary) hypertension - Plan cont current plan of care, plan discussed w/ family * .
[2017-05-24 03:18] LABS: #Basophils 0.1 thou/uL (0.0-0.2); #Eosinphils 0.9 thou/uL (0.0-0.7); #Lymphocytes 3.6 thou/uL (1.20-3.40); #Monocytes 1.2 thou/uL (0.11-0.59); #Neutrophils 7.1 thou/uL (1.40-6.50); %Basophils 0.4 % (0.0-1.0); %Eosinophils 7.1 % (0.0-10.0); %Lymphocytes 28.3 % (21.0-51.0); %Monocytes 9.1 % (0.0-10.0); Hematocrit 38.8 % (42.0-52.0); Mean Platelet Volume 7.5 fL (7.4-10.4); Red Blood Cell (RBC) Count 4.12 mill/uL (4.70-6.10); White Blood Cell (WBC) Count 12.8 thou/uL (4.8-10.8)
[2017-05-24 03:43] LABS: Anion Gap 12 mmol/L (10-20); BUN (Urea Nitrogen) 20 mg/dL (8.4-25.7); BUN/Creatinine Ratio 15.38; Calc. Creatinine Clearance 32 mL/min (70-130); Calcium 7.5 mg/dL (7.8-10.44); Carbon Dioxide 21 mmol/L (23-31); Chloride 111 mmol/L (98-107); Estimated GFR-MDRD 52; Magnesium 1.7 mg/dL (1.6-2.6); Phosphorus 4.1 mg/dL (2.3-4.7)
[2017-05-24] MEDS ORDERED: Aspirin 300 MG Suppository PR SCH (05:00)
--- NOTE | 2017-05-24 08:20 | CT ---
PRELIMINARY REPORT/[facility]/EMERGENCY AFTER HOURS PROCEDURE: Addendum created by Steven Reynoso MD on 05/24/2017 3:35 AM Central Time ([place]) Report of this case was discussed with MARIA TERESA Macario at 3:34 AM CDT, 05/24/2017. Initial Report created on 05/24/2017 3:32 AM Central Time ([place]) EXAM: CT Head Without Intravenous Contrast CLINICAL HISTORY: 87 years old, male; Signs and symptoms; Altered mental status/memory loss and weakness, extremity; R ight; Confusion or disorientation; Patient HX: Increased AMS; Rue weakness TECHNIQUE: Axial computed tomography images of the head/brain without intravenous contrast. COMPARISON: No relevant prior studies available. FINDINGS: No definite or depressed skull fracture. Included paranasal sinuses are clear. No acute intracranial hemorrhage or mass effect. Ventricle size is normal for age. There is very mild decreased attenuation in the periventricular white matter, likely from microvascu lar disease. Subtle, small area of decreased attenuation in the left supraventricular white matter, best seen on image #20, series 2. This may represent an area of chronic white matter ischemia/infarct. Subtle acute or subacute infarct should also be considered, please correlate clinically. MRI could be more sensitive/specific for detecting an acute infarct, and also for distinguishing bet ween old and subacute infarcts, as clinically directed. IMPRESSION: No acute intracranial hemorrhage or mass effect. Subtle, small area of decreased attenuation in the left supraventricular white matter, details above . This may represent an area of chronic white matter ischemia/infarct. Subtle acute or subacute infarct should also be considered, please correlate clinically. MRI could be more sensitive/specific for detecting an acute infarct, and also for distinguishing bet ween old and subacute infarcts, as clinically directed. Thank you for allowing us to participate in the care of your patient. Dictated and Authenticated by: Steven Reynoso MD 05/24/2017 3:32 AM Central Time ([place] \[place]\ [place]) FINAL REPORT NONCONTRAST HEAD CT: HISTORY: Stroke activation. Right upper extremity is flaccid. COMPARISON: 05/23/17. TECHNIQUE: Noncontrast head CT is performed from the skull base to the skull vertex. FINDINGS: This report is in agreement with the preliminary report by [facility]. There is no acute intracranial proc ess. Comparison made with an examination from 05/15/16 does not demonstrate the hypodensity noted on the preliminary report by [facility]. Given approximately 1 year interval, the possibility of an area of chronic small-vessel ischemic change versus acute/subacute white matter infarct must be considered. Better interrogation with brain MRI is recommended. POS: [facility]UR[facility]
--- NOTE | 2017-05-24 08:41 | CON ---
DATE OF CONSULTATION: 05/24/2017 CONSULTING PHYSICIAN: Hospitalist Service IMPRESSION: Improving right hemiparesis suggestive of a small vessel stroke. PLAN: 1. MRI of the brain. 2. Continue current antiplatelet therapy. 3. Continue statin. Mr. Torres is an 87-year-old man with a history of some dementia, dyslipidemia, coronary art camron disease, BPH, hypothyroidism who came in initially with complaints of chest pain last night. Hi s noted that he was complaining that he could not move his right arm. He also seemed to have s ome difficulty speaking. He was taken emergently, had a CT scan. Nothing remarkable was found. CT A did not show any significant carotid disease. His clinical state seemed to improve through the ni ght. He began speaking more appropriately. He has been able to start moving the right arm much bet ter, but he is still having some weakness in the hand. There is no past history of stroke symptoms. He was already on antiplatelet therapy with aspirin and Plavix. PAST MEDICAL HISTORY: As listed above. ALLERGIES: None. SOCIAL HISTORY: No tobacco or alcohol use. FAMILY HISTORY: Unremarkable. REVIEW OF SYSTEMS: No complaint of headache, nausea, vomiting, or vertigo MEDICATIONS: Reviewed. PHYSICAL EXAMINATION: GENERAL: He is a small elderly gentleman lying in bed in no distress. VITAL SIGNS: Blood pressure 137/63, pulse 57, respirations 16, temperature afebrile. HEENT: Pupils are equal and reactive. Conjunctivae clear. Oropharynx clear. NECK: Supple. EXTREMITIES: No cyanosis or edema. NEUROLOGIC: He was alert and cooperative. His speech was fluent without any dysarthria. Cranial n erve exam did not show any facial asymmetry. Motor exam showed diminished rapid alternating movemen ts in the right hand with antigravity strength in the right arm. His hand race relations professor was diminished on th e right to a mild degree. He had antigravity strength in the right leg. He had good strength dista lly. Sensation was subjectively symmetric. No tremor or dysmetria was seen. LABORATORY STUDIES: Reviewed. CT images were reviewed. SUMMARY: This is an elderly gentleman with history of coronary disease, hyperlipidemia, some mild d ementia who has had transient weakness on the right side that appears to be improving. His workup t hus far has been unremarkable. Continue antiplatelet therapy and lipid therapy.
--- NOTE | 2017-05-24 09:08 | PRG ---
DATE OF SERVICE: 05/24/2017 Mr. Torres had issues last evening. A code mario was called. He had left-sided weakness. He was tr ansferred to the Stroke Unit. He then had recurrent symptoms and a second code mario was called. H is symptoms appear to be resolving. Neurology has been consulted. No chest pain, pressure, shortne ss of breath or other associated symptoms are present. PHYSICAL EXAMINATION: VITAL SIGNS: Blood pressure 110/49, pulse 60, temperature 98.5. GENERAL: The patient is awake and alert. LUNGS: Clear to auscultation, unlabored. CARDIAC: Regular rate and rhythm with normal S1, S2. ABDOMEN: Soft, nontender, nondistended. EXTREMITIES: No significant edema. PERTINENT LABORATORY DATA: Hemoglobin 12.8, creatinine 1.3. Peak troponin of 17 with a CK-MB of 14 . IMPRESSION: 1. Acute stroke. 2. Severe coronary artery disease. 3. Recent non-Q wave myocardial infarction. RECOMMENDATIONS: At this point, we will continue conservative therapy. We will await final recomme ndations from Neurology. It appears Mr. Torres has a small vessel disease and pleased that his sympt oms are improving. He did get a loading dose of Plavix yesterday followed by 75 q.a.m. today. We w ill continue aspirin. Again, unless acute changes are noted, I would not recommend further interven tion from a CV standpoint. Overall his LVEF appears normal.
[2017-05-24] MEDS: K-Phos Neutral 250 MG TAB PO SCH ×3 (09:13→16:27)
[2017-05-24] MEDS: Clopidogrel Bisulfate 75 MG TAB PO SCH (09:15)
[2017-05-24] MEDS: Famotidine 20 MG TAB PO SCH ×2 (09:15→21:02)
[2017-05-24] MEDS: Sodium Chloride 0.9% 1,000 ML IV SCH (09:16)
[2017-05-24] MEDS: Metoprolol Tartrate 25 MG TAB PO SCH ×2 (09:20→21:07)
[2017-05-24 11:10] VITALS: BMI 21.4
[2017-05-24] MEDS ORDERED: Sodium Chloride 0.9% 1,000 ML IV SCH (12:32)
--- NOTE | 2017-05-24 14:44 | MRI ---
EXAM: BRAIN MRI WITHOUT CONTRAST: HISTORY: Stroke activation. Right upper extremity flaccid weakness. COMPARISON: None. TECHNIQUE: Brain MRI is performed without intravenous Gadolinium administration. Multisequential, multiplanar imaging is performed. FINDINGS: Limited evaluation due to motion degradation. No hemorrhage on the axial gradient echo sequence. There are punctate areas of restricted diffusion involving the left centrum semiovale, left pre- and post central sulcal cortex suggesting a left MCA distribution infarction, predominantly involving t he end vessels. There is minimal associated FLAIR hyperintensity. No mass effect or midline shift. Age-appropriate atrophy. With the exception of the region of the aforementioned areas of infarction, cortical vann-white matter differentiation is preserved. No evidence of hydrocephalus. Calvarium has a normal marrow signal intensity. Midline brain parenchymal structures are unremarkab le. IMPRESSION: Left middle cerebral artery distribution infarction involving the left centrum semiovale as well as the cortex along the pre- and post-central sulcus. POS: [facility]
--- NOTE | 2017-05-24 18:06 | PDOC.PN ---
- Subjective Encounter Start Date: 05/24/17 Encounter Start Time: 18:04 Patient seen and examined. No new complaints. No overnight events. Rt sided weakness slowly improving - Objective Resuscitation Status: Resuscitation Status FULL:Full Resuscitation MAR Reviewed: Yes Vital Signs & Weight: Vital Signs (12 hours) Temp Pulse Pulse Pulse Resp BP BP 05/24/17 16:00 99.1 F 59 L 14 05/24/17 12:25 98.6 F 59 L 16 05/24/17 11:00 59 L 58 L 110/63 109/59 L 05/24/17 08:45 56 L 113/63 05/24/17 08:20 99.7 F H 57 L 14 BP Pulse Ox 05/24/17 16:00 123/58 L 95 05/24/17 12:25 118/59 L 97 05/24/17 11:00 05/24/17 08:45 05/24/17 08:20 109/56 L 95 Weight Admit Weight 128 lb 4.8 oz Weight 125 lb 1.6 oz I&O: 05/23/17 05/24/17 05/25/17 06:59 06:59 06:59 Intake Total 1438 2845 1300 Output Total 75 Balance 1363 2845 1300 Result Diagrams: 05/24/17 03:07 05/24/17 03:07 Additional Labs: Accuchecks 05/23/17 16:45 POC Glucose 87 Radiology Reviewed by me: Yes (MRI - Acute L MCA dis CVA) EKG Reviewed by me: Yes (Tele SR) Phys Exam - Physical Examination Constitutional: NAD Respiratory: no wheezing, no rales, no rhonchi Symmetrical Cardiovascular: RRR, no rub no heaves/pulsations Gastrointestinal: soft, non-tender, no distention, positive bowel sounds Musculoskeletal: no edema Neurological: non-focal, moves all 4 limbs Rt side 3-4/5 Psychiatric: A&O x 3 Dx/Plan (1) Acute ischemic left MCA stroke Code(s): I63.512 - CEREB INFRC D/T UNSP OCCLS OR STENOS OF LEFT MID CEREB ART Status: Acute (2) NSTEMI (non-ST elevated myocardial infarction) Code(s): I21.4 - NON-ST ELEVATION (NSTEMI) MYOCARDIAL INFARCTION Status: Acute Comment: 3 V CAD (3) BPH (benign prostatic hyperplasia) Code(s): N40.0 - BENIGN PROSTATIC HYPERPLASIA WITHOUT LOWER URINRY TRACT SYMP Status: Chronic (4) Dyslipidemia Code(s): E78.5 - HYPERLIPIDEMIA, UNSPECIFIED Status: Chronic (5) CKD (chronic kidney disease) stage 2, GFR 60-89 ml/min Code(s): N18.2 - CHRONIC KIDNEY DISEASE, STAGE 2 (MILD) Status: Chronic Comment: no dosage adjustment needed at present. (6) HTN (hypertension) Code(s): I10 - ESSENTIAL (PRIMARY) HYPERTENSION Status: Chronic Qualifiers: Hypertension type: essential hypertension Qualified Code(s): I10 - Essential (primary) hypertension (7) Dementia Code(s): F03.90 - UNSPECIFIED DEMENTIA WITHOUT BEHAVIORAL DISTURBANCE Status: Chronic (8) Hypothyroidism Code(s): E03.9 - HYPOTHYROIDISM, UNSPECIFIED Status: Chronic (9) Mild protein-calorie malnutrition Code(s): E44.1 - MILD PROTEIN-CALORIE MALNUTRITION Status: Acute (10) Swallowing dysfunction Code(s): R13.10 - DYSPHAGIA, UNSPECIFIED Status: Acute (11) Electrolyte abnormality Code(s): E87.8 - OTH DISORDERS OF ELECTROLYTE AND FLUID BALANCE, NEC Status: Acute Comment: hypokalemia/hypophosphatemia - Plan cont current plan of care, plan discussed w/ family, PT/OT, child welfare social worker, speech therapy, DVT proph w/heparin, DVT proph w/SCDs * Cont modified diet * On ASA/Plavix * Stroke team * Cont supportive care * Will dc Heparin SQ due to high risk of hemorrhagic conversion with ASA/Plavix/ Heparin * AM labs * Replace Potassium * DC Kphos * Plan d/w patient/family - they stated understanding. Review of Systems - Review of Systems Constitutional: negative: Fever, Chills, Sweats, Weakness, Malaise, Other Respiratory: negative: Cough, Dry, Shortness of Breath, Hemoptysis, SOB with Excertion, Pleuritic Pain, Sputum, Wheezing Cardiovascular: negative: Chest Pain, Palpitations, Orthopnea, Paroxysmal Noc. Dyspnea, Edema, Light Headedness, Other Gastrointestinal: negative: Nausea, Vomiting, Abdominal Pain, Diarrhea, Constipation, Melena, Hematochezia, Other - Medications/Allergies Allergies/Adverse Reactions: Allergies Allergy/AdvReac Type Severity Reaction Status Date / Time No Known Allergies Allergy Verified 05/21/17 17:03 Medications: Current Medications Acetaminophen (Tylenol) 650 mg PO Q4H PRN PRN Reason: Headache/Fever or Pain Last Admin: 05/24/17 16:27 Dose: 650 mg Hydrocodone Bitart/Acetaminophen ([place] 5/325) 1 tab PO Q4H PRN PRN Reason: Moderate Pain (4-6) Artificial Tears (Tears Naturale) 0 drop EA EYE PRN PRN PRN Reason: Dry Eyes Aspirin (Aspirin Chewable) 81 mg PO DAILY [facility] Last Admin: 05/24/17 09:16 Dose: 81 mg Atorvastatin Calcium (Lipitor) 40 mg PO HS [facility] Last Admin: 05/23/17 20:17 Dose: 40 mg Calcium Carbonate (Tums) 1,000 mg PO Q4H PRN PRN Reason: Heartburn or Indigestion Clopidogrel Bisulfate (Plavix) 75 mg PO DAILY [facility] Last Admin: 05/24/17 09:15 Dose: 75 mg Famotidine (Pepcid) 20 mg PO BID [facility] Last Admin: 05/24/17 09:15 Dose: 20 mg Guaifenesin (Robitussin Sf) 200 mg PO Q4H PRN PRN Reason: Cough Heparin Sodium (Porcine) (Heparin) 5,000 units SC Q12HR [facility] Hydralazine HCl (Apresoline) 10 mg SLOW IVP Q4H PRN PRN Reason: Systolic BP > 180 Isosorbide Mononitrate (Imdur Er) 30 mg PO DAILY [facility] Last Admin: 05/24/17 09:14 Dose: 30 mg Loperamide HCl (Imodium) 2 mg PO PRN PRN PRN Reason: Diarrhea/Loose Stools Last Admin: 05/23/17 23:33 Dose: 2 mg Loratadine (Claritin) 10 mg PO DAILYPRN PRN PRN Reason: Sinus Symptoms Magnesium Hydroxide (Milk Of Magnesium) 30 ml PO DAILYPRN PRN PRN Reason: Constipation Metoprolol Tartrate (Lopressor) 12.5 mg PO BID [facility] Last Admin: 05/24/17 09:20 Dose: Not Given Mineral Oil/White Petrolatum (Eucerin Cream) 0 gm TOP BIDPRN PRN PRN Reason: Dry Skin Nitroglycerin (Nitrostat) 0.4 mg SL Q5MIN PRN PRN Reason: Chest Pain Ondansetron HCl (Zofran Odt) 4 mg PO Q6H PRN PRN Reason: Nausea/Vomiting Ondansetron HCl (Zofran) 4 mg IVP Q6H PRN PRN Reason: Nausea/Vomiting Potassium Chloride (Klor-Con) 20 meq PO QAM-WM [facility] Last Admin: 05/24/17 09:21 Dose: 20 meq Senna (Senokot) 2 tab PO HSPRN PRN PRN Reason: Constipation Sodium Chloride ([place] Nasal [place] 0.65%) 0 ml EA NARE QIDPRN PRN PRN Reason: Nasal Congestion Last Admin: 05/24/17 00:17 Dose: 1 sprays Sodium Chloride (Flush - Normal Saline) 10 ml IVF Q12HR [facility] Last Admin: 05/24/17 09:20 Dose: 10 ml Sodium Chloride (Flush - Normal Saline) 10 ml IVF PRN PRN PRN Reason: Saline Flush Tamsulosin HCl (Flomax) 0.4 mg PO [facility] Last Admin: 05/23/17 20:16 Dose: 0.4 mg Tramadol HCl (Ultram) 50 mg PO Q6H PRN PRN Reason: Moderate Pain (4-6)
[2017-05-24] MEDS: Atorvastatin Calcium 40 MG TAB PO SCH (21:02)
[2017-05-24] MEDS: Heparin 5,000 UNITS/ML VIAL SC SCH (21:02)
[2017-05-24] MEDS: Tamsulosin HCl 0.4 MG CAP PO SCH (21:02)
[2017-05-25 04:58] LABS: Hematocrit 39.7 % (42.0-52.0)
[2017-05-25 05:12] LABS: Anion Gap 11 mmol/L (10-20); BUN (Urea Nitrogen) 18 mg/dL (8.4-25.7); Calc. Creatinine Clearance 36 mL/min (70-130); Calcium 7.6 mg/dL (7.8-10.44); Carbon Dioxide 24 mmol/L (23-31); Chloride 107 mmol/L (98-107); Estimated GFR-MDRD 61
--- NOTE | 2017-05-25 09:08 | PDOC.CTH ---
<Janey Samaniego - Last Filed: 05/25/17 09:09> Cardiology Progress Note - Subjective The pt was seen and examined. No overnight events. No cardiac complaints. According to the pt's family, he has been walking to bathroom and around the room with assist. The pt denied ABD pain, SOB, CP, dizziness or other cardiac complaints with movement/exercise. Complains of chronic back pain - Objective Vital Signs Temp Pulse Resp BP Pulse Ox 05/25/17 07:44 99.1 F 66 12 135/60 99 05/25/17 03:58 99.4 F 67 16 125/61 95 05/25/17 00:13 98.6 F 68 18 124/61 96 Admit Weight 128 lb 4.8 oz Weight 148 lb 9.6 oz 05/24/17 05/25/17 05/26/17 06:59 06:59 06:59 Intake Total 2845 1780 Balance 2845 1780 - Physical Examination General/Neuro: other: (A&O to self and place) Neck: no JVD present Lungs: CTA Heart: RRR Abdomen: soft, other: Extremities: other: (No edema) - Telemetry Telemetry Rhythm: SR 60s - Labs Result Diagrams: 05/25/17 04:24 05/25/17 04:24 Troponin/CKMB CK-MB (CK-2) 14.6 ng/mL (0-6.6) H* 05/23/17 16:49 Troponin I 17.388 ng/mL (< 0.028) H* 05/23/17 16:49 - Assessment/Plan 1. 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 Severe 3V CAD with NSTEMI - stable with medical treatment; at this moment, medical treatment only; cont. ASA, Plavix, BBlocker, and statin; Stop Heparin 3. HTN - stable with current medication 4. dyslipidemia - on Statin medication 5. CKD stage 2 - stable; cont. monitor 6. Dementia - family at bedside 7. swallowing dysfunction 8. BPH 9. Hypothyroidism MAR Reviewed From Cardiac standpoint, the pt is stable to tx to Rehab; The pt will follow up with Dr De La O's office within 1 month Review of Systems - Review of Systems Constitutional: reports: no symptoms reported EENTM: reports: no symptoms reported Respiratory: reports: no symptoms reported Cardiac (ROS): reports: no symptoms reported ABD/GI: reports: no symptoms reported : reports: no symptoms reported Musculoskeletal: reports: back pain Skin: reports: no symptoms reported <John Tang - Last Filed: 05/25/17 18:09> Cardiology Progress Note - Objective Vital Signs Temp Pulse Resp BP Pulse Ox 05/25/17 15:53 98.0 F 61 14 145/67 H 97 05/25/17 11:50 97.5 F L 54 L 14 122/60 98 05/25/17 08:00 99.1 F 66 12 05/25/17 07:44 99.1 F 66 12 135/60 99 Admit Weight 128 lb 4.8 oz Weight 148 lb 9.6 oz 05/24/17 05/25/17 05/26/17 06:59 06:59 06:59 Intake Total 2845 1780 360 Balance 2845 1780 360 - Labs Result Diagrams: 05/25/17 04:24 05/25/17 04:24 Troponin/CKMB CK-MB (CK-2) 14.6 ng/mL (0-6.6) H* 05/23/17 16:49 Troponin I 17.388 ng/mL (< 0.028) H* 05/23/17 16:49 - Assessment/Plan Pt. was seen and eval. I agree with the A/P by the PROPOSAL COORDINATOR. We discussed the pt. and care. Agree that he is stable for transfer to rehab.
[2017-05-25] MEDS: Famotidine 20 MG TAB PO SCH ×2 (09:23→20:54)
[2017-05-25] MEDS: Clopidogrel Bisulfate 75 MG TAB PO SCH (09:23)
[2017-05-25] MEDS: Metoprolol Tartrate 25 MG TAB PO SCH ×3 (09:25→21:02)
[2017-05-25] MEDS: Heparin 5,000 UNITS/ML VIAL SC SCH (09:26)
[2017-05-25] MEDS ORDERED: Finasteride 5 MG TAB PO SCH (10:45)
[2017-05-25] MEDS ORDERED: Levothyroxine Sodium 75 MCG TAB PO SCH (10:45)
--- NOTE | 2017-05-25 12:25 | PDOC.PN ---
- Subjective Encounter Start Date: 05/25/17 Encounter Start Time: 11:00 Patient seen and examined. No new complaints. No overnight events. Rt sided weakness/speech improving. - Objective Resuscitation Status: Resuscitation Status FULL:Full Resuscitation MAR Reviewed: Yes Vital Signs & Weight: Vital Signs (12 hours) Temp Pulse Resp BP Pulse Ox 05/25/17 11:50 97.5 F L 54 L 14 122/60 98 05/25/17 08:00 99.1 F 66 12 05/25/17 07:44 99.1 F 66 12 135/60 99 05/25/17 03:58 99.4 F 67 16 125/61 95 Weight Admit Weight 128 lb 4.8 oz Weight 148 lb 9.6 oz I&O: 05/24/17 05/25/17 05/26/17 06:59 06:59 06:59 Intake Total 2845 1780 240 Balance 2845 1780 240 Result Diagrams: 05/25/17 04:24 05/25/17 04:24 EKG Reviewed by me: Yes (Tele SR) Phys Exam - Physical Examination Constitutional: NAD Respiratory: no wheezing, no rhonchi Cardiovascular: RRR, no rub Gastrointestinal: soft, non-tender, positive bowel sounds Musculoskeletal: no edema Neurological: moves all 4 limbs Rt sided weakness improving 4/5. weakness mainly in Rt hand Psychiatric: A&O x 3 Dx/Plan (1) Acute ischemic left MCA stroke Code(s): I63.512 - CEREB INFRC D/T UNSP OCCLS OR STENOS OF LEFT MID CEREB ART Status: Acute (2) NSTEMI (non-ST elevated myocardial infarction) Code(s): I21.4 - NON-ST ELEVATION (NSTEMI) MYOCARDIAL INFARCTION Status: Acute Comment: 3 V CAD (3) BPH (benign prostatic hyperplasia) Code(s): N40.0 - BENIGN PROSTATIC HYPERPLASIA WITHOUT LOWER URINRY TRACT SYMP Status: Chronic (4) Dyslipidemia Code(s): E78.5 - HYPERLIPIDEMIA, UNSPECIFIED Status: Chronic (5) CKD (chronic kidney disease) stage 2, GFR 60-89 ml/min Code(s): N18.2 - CHRONIC KIDNEY DISEASE, STAGE 2 (MILD) Status: Chronic Comment: no dosage adjustment needed at present. (6) HTN (hypertension) Code(s): I10 - ESSENTIAL (PRIMARY) HYPERTENSION Status: Chronic Qualifiers: Hypertension type: essential hypertension Qualified Code(s): I10 - Essential (primary) hypertension (7) Dementia Code(s): F03.90 - UNSPECIFIED DEMENTIA WITHOUT BEHAVIORAL DISTURBANCE Status: Chronic (8) Hypothyroidism Code(s): E03.9 - HYPOTHYROIDISM, UNSPECIFIED Status: Chronic (9) Mild protein-calorie malnutrition Code(s): E44.1 - MILD PROTEIN-CALORIE MALNUTRITION Status: Acute (10) Swallowing dysfunction Code(s): R13.10 - DYSPHAGIA, UNSPECIFIED Status: Acute Comment: on modified diet (11) Electrolyte abnormality Code(s): E87.8 - OTH DISORDERS OF ELECTROLYTE AND FLUID BALANCE, NEC Status: Acute Comment: hypokalemia/hypophosphatemia - Plan cont current plan of care, PT/OT, 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 * Neuro/Cardio following * Plan d/w patient/family - they stated understanding. Review of Systems - Review of Systems Constitutional: negative: Fever, Chills, Sweats, Weakness, Malaise, Other Respiratory: negative: Cough, Dry, Shortness of Breath, Hemoptysis, SOB with Excertion, Pleuritic Pain, Sputum, Wheezing Cardiovascular: negative: Chest Pain, Palpitations, Orthopnea, Paroxysmal Noc. Dyspnea, Edema, Light Headedness, Other Gastrointestinal: negative: Nausea, Vomiting, Abdominal Pain, Diarrhea, Constipation, Melena, Hematochezia, Other Genitourinary: negative: Dysuria, Frequency, Incontinence, Hematuria, Retention , Other - Medications/Allergies Allergies/Adverse Reactions: Allergies Allergy/AdvReac Type Severity Reaction Status Date / Time No Known Allergies Allergy Verified 05/21/17 17:03 Medications: Current Medications Acetaminophen (Tylenol) 650 mg PO Q4H PRN PRN Reason: Headache/Fever or Pain Last Admin: 05/24/17 16:27 Dose: 650 mg Hydrocodone Bitart/Acetaminophen ([place] 5/325) 1 tab PO Q4H PRN PRN Reason: Moderate Pain (4-6) Artificial Tears (Tears Naturale) 0 drop EA EYE PRN PRN PRN Reason: Dry Eyes Aspirin (Ecotrin) 81 mg PO DAILY [facility] Atorvastatin Calcium (Lipitor) 40 mg PO HS [facility] Last Admin: 05/24/17 21:02 Dose: 40 mg Calcium Carbonate (Tums) 1,000 mg PO Q4H PRN PRN Reason: Heartburn or Indigestion Clopidogrel Bisulfate (Plavix) 75 mg PO DAILY [facility] Last Admin: 05/25/17 09:23 Dose: 75 mg Famotidine (Pepcid) 20 mg PO BID [facility] Last Admin: 05/25/17 09:23 Dose: 20 mg Finasteride (Proscar) 5 mg PO DAILY [facility] Finasteride (Proscar) 5 mg PO NOW [facility] Stop: 05/25/17 12:45 Last Admin: 05/25/17 11:45 Dose: 5 mg Guaifenesin (Robitussin Sf) 200 mg PO Q4H PRN PRN Reason: Cough Hydralazine HCl (Apresoline) 10 mg SLOW IVP Q4H PRN PRN Reason: Systolic BP > 180 Isosorbide Mononitrate (Imdur Er) 30 mg PO DAILY [facility] Last Admin: 05/25/17 09:23 Dose: 30 mg Levothyroxine Sodium (Synthroid) 75 mcg PO NOW [facility] Stop: 05/25/17 12:45 Last Admin: 05/25/17 11:45 Dose: 75 mcg Levothyroxine Sodium (Synthroid) 75 mcg PO 0600 [facility] Loperamide HCl (Imodium) 2 mg PO PRN PRN PRN Reason: Diarrhea/Loose Stools Last Admin: 05/23/17 23:33 Dose: 2 mg Loratadine (Claritin) 10 mg PO DAILYPRN PRN PRN Reason: Sinus Symptoms Magnesium Hydroxide (Milk Of Magnesium) 30 ml PO DAILYPRN PRN PRN Reason: Constipation Metoprolol Tartrate (Lopressor) 12.5 mg PO BID [facility] Last Admin: 05/25/17 09:25 Dose: 12.5 mg Mineral Oil/White Petrolatum (Eucerin Cream) 0 gm TOP BIDPRN PRN PRN Reason: Dry Skin Nitroglycerin (Nitrostat) 0.4 mg SL Q5MIN PRN PRN Reason: Chest Pain Ondansetron HCl (Zofran Odt) 4 mg PO Q6H PRN PRN Reason: Nausea/Vomiting Ondansetron HCl (Zofran) 4 mg IVP Q6H PRN PRN Reason: Nausea/Vomiting Potassium Chloride (Klor-Con) 20 meq PO QAM-WM [facility] Last Admin: 05/25/17 09:23 Dose: 20 meq Senna (Senokot) 2 tab PO HSPRN PRN PRN Reason: Constipation Sodium Chloride ([place] Nasal [place] 0.65%) 0 ml EA NARE QIDPRN PRN PRN Reason: Nasal Congestion Last Admin: 05/24/17 00:17 Dose: 1 sprays Sodium Chloride (Flush - Normal Saline) 10 ml IVF Q12HR [facility] Last Admin: 05/25/17 09:25 Dose: Not Given Sodium Chloride (Flush - Normal Saline) 10 ml IVF PRN PRN PRN Reason: Saline Flush Tamsulosin HCl (Flomax) 0.4 mg PO HS [facility] Last Admin: 05/24/17 21:02 Dose: 0.4 mg Tramadol HCl (Ultram) 50 mg PO Q6H PRN PRN Reason: Moderate Pain (4-6)
[2017-05-25] MEDS: Acetaminophen 325 MG TAB PO PRN (19:00)
[2017-05-25] MEDS: Atorvastatin Calcium 40 MG TAB PO SCH (20:54)
[2017-05-25] MEDS: Tamsulosin HCl 0.4 MG CAP PO SCH (20:54)
[2017-05-26] MEDS ORDERED: Levothyroxine Sodium 75 MCG TAB PO SCH (06:00)
[2017-05-26] MEDS ORDERED: Potassium Chloride 10 MEQ TAB PO SCH (08:00)
[2017-05-26] MEDS ORDERED: Finasteride 5 MG TAB PO SCH (09:00)
[2017-05-26] MEDS ORDERED: Aspirin 81 mg Enteric Coated Tablet PO SCH (09:00)
[2017-05-26] MEDS: Clopidogrel Bisulfate 75 MG TAB PO SCH (09:13)
[2017-05-26] MEDS: Famotidine 20 MG TAB PO SCH (09:13)
[2017-05-26] MEDS: Metoprolol Tartrate 25 MG TAB PO SCH (09:14)
--- NOTE | 2017-05-26 10:33 | DIS ---
DATE OF ADMISSION: 05/21/2017 DATE OF DISCHARGE: 05/26/2017 DISCHARGE DIAGNOSES: 1. [id number] myocardial infarction, medical management. 2. 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 3. Chronic kidney disease stage 2. 4. Dyslipidemia. 5. Hypothyroidism, stable. 6. Mild protein calorie malnutrition. 7. Dysphagia secondary to acute cerebrovascular accident, mild. 8. Hypokalemia, resolved. CONSULTATIONS: Dr. De La O with Cardiology Service. Dr. Martinez with Neurology Service. PERTINENT LABORATORY DATA AND X-RAY FINDINGS: Potassium ranged between 3.4-4.1, creatinine ranged b etween 1.0-1.61, estimated GFR ranged between 41-71. Troponin ranged between 1.14-20.6, total benny sterol 214, triglycerides 156, HDL 35, LDL 148. TSH 0.86. B12 level 770, folate level 11.0. CBC s howed a white blood cell count ranged between 10.9-12.8, hemoglobin ranged between 12.8-14.2. CT of the brain without contrast dated 05/23/2017 showed no acute intracranial process. MRI of the brain dated 05/24/2017 showed left middle cerebral artery distribution infarction involving the left cent rum semiovale. CT angiogram of the head and neck dated 05/23/2017 showed scattered atherosclerotic disease without high grade stenosis. A 2D transthoracic echocardiogram dated 05/22/2017 showed ejec tion fraction of 40%-45%. Hypokinesis of the septal and lateral wall. Mild to moderate mitral valv e regurgitation. Left heart cardiac catheterization dated 05/22/2017 showed severe three-vessel cor onary artery disease. Please see dictated report for full details. HOSPITAL COURSE: Patient was admitted to the telemetry unit after initially presenting with epigast benito and chest pain with enzymatic evidence of acute [id number] myocardial infarction. Serial troponin I was noted initially at 1.14 with a peak level of 20.6. The patient was evaluated by the Cardiology service undergoing left heart catheterization showing severe three-vessel coronary artery disease with recommendations for medical management given the patient's overall comorbid status and the anatomy identified. The patient was continued on aspirin, Plavix, and heparin therapy as well as Lipitor and metoprolol. The patient had a code green event with a stroke alert activation underg oing CT of the brain showing no acute process. The patient underwent subsequent MRI imaging of the brain showing a left middle cerebral artery distribution cerebrovascular accident with associated ri ght-sided deficit. The patient underwent general stroke protocol as well as PT, OT and speech thera py evaluation. Due to patient's overall comorbid status and functional limitations, patient was cristal med an appropriate candidate for inpatient rehabilitation. Overall, the patient did remain clinical ly stable throughout the remainder of the hospital course, tolerating oral intake, voiding appropria tely and ready for discharge to the inpatient rehabilitation on 05/26/2017. DISCHARGE MEDICATIONS: 1. Enteric coated aspirin 81 mg 1 tab p.o. daily. 2. Lipitor 40 mg p.o. at bedtime. 3. Plavix 75 mg 1 tab p.o. daily. 4. Donepezil 5 mg p.o. at bedtime. 5. Pepcid 20 mg p.o. b.i.d. 6. Finasteride 5 mg p.o. daily. 7. Imdur 30 mg p.o. daily. 8. Synthroid 75 mcg p.o. daily. 9. Lopressor 12.5 mg p.o. b.i.d. 10. Nitroglycerin 0.4 mg sublingually every 5 minutes p.r.n. chest pain. 11. Klor-Con 10 mEq p.o. daily. 12. Tamsulosin 0.4 mg p.o. daily. FOLLOWUP: Patient will follow up with his primary care provider Dr. Belén Porter after discharge from [facility]. Patient will follow up with Dr. De La O within [address] [facility]. CONDITION ON DISCHARGE: Fair. ACTIVITY: ad alexandrea. Rolling walker with standby/contact guard assistance. High fall risk precaution s. DIET: Heart healthy. CODE STATUS: FULL. DISPOSITION: To [facility] on 05/26/2017. Total time preparing and coordinating discharge is 35 minutes.
[2017-05-26 12:08] VITALS: BP 134/60; TEMP 97.6
--- NOTE | 2017-05-26 13:50 | PDOC.CTH ---
Cardiology Progress Note - Subjective The pt was seen and examined. No overnight events. No cardiac complaints. The pt and do not have any cardiac related questions or concerns at this moment. - Objective Vital Signs Temp Pulse Resp BP BP Pulse Ox 05/26/17 12:00 97.6 F 60 16 134/60 97 05/26/17 07:43 98.4 F 61 14 133/66 97 05/26/17 04:00 98.5 F 59 L 20 131/65 97 Admit Weight 128 lb 4.8 oz Weight 141 lb 9.6 oz 05/25/17 05/26/17 05/27/17 06:59 06:59 06:59 Intake Total 1780 1290 Balance 1780 1290 - Physical Examination General/Neuro: alert & oriented x3 Neck: no JVD present Lungs: CTA Heart: RRR Abdomen: soft Extremities: other: (No edemas) - Telemetry Telemetry Rhythm: SB 59 - Labs Result Diagrams: 05/25/17 04:24 05/25/17 04:24 Troponin/CKMB CK-MB (CK-2) 14.6 ng/mL (0-6.6) H* 05/23/17 16:49 Troponin I 17.388 ng/mL (< 0.028) H* 05/23/17 16:49 - Assessment/Plan 1. 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 Severe 3V CAD with NSTEMI - stable with medical treatment; at this moment, medical treatment only; cont. ASA, Plavix, BBlocker, and statin; Stop Heparin 3. HTN - stable with current medication 4. dyslipidemia - on Statin medication 5. CKD stage 2 - stable; cont. monitor 6. Dementia - family at bedside 7. swallowing dysfunction 8. BPH 9. Hypothyroidism MAR Reviewed From Cardiac standpoint, the pt is stable to tx to Rehab; The pt will follow up with Dr De La O's office within 2 wks after d/c from Rehab (according to Pt's , the pt will be the Rehab for 2 wks) Review of Systems - Review of Systems Constitutional: reports: no symptoms reported EENTM: reports: no symptoms reported Respiratory: reports: no symptoms reported Cardiac (ROS): reports: no symptoms reported ABD/GI: reports: no symptoms reported : reports: no symptoms reported Musculoskeletal: reports: no symptoms reported Skin: reports: no symptoms reported
--- NOTE | 2017-05-27 12:58 | CT ---
CTA HEAD WITH 3D VOLUME RENDERING CTA NECK WITH 3D VOLUME RENDERING 05/23/17 CLINICAL HISTORY: New right arm numbness. FINDINGS: There is prominent, bulky noncalcified atheromatous plaque of the junction of the aortic arch and de scending thoracic aorta in addition to scattered vascular calcification. The bilateral subclavian ar teries are contrast opacified and there is a mild to moderate focal narrowing involving the proximal left subclavian artery due to noncalcified plaque at its origin arising from the above described bu lky plaque of the aorta. There is mild to moderate focal stenosis involving the brachiocephalic trun k and proximal aspect of right subclavian artery. There are tortuous bilateral common carotid arteri es with mild areas of atherosclerotic plaque and associated mild luminal narrowing. There is calcifi cation involving each carotid bifurcation. The bilateral cervical ICA revealed no high grade focal s tenosis or occlusion. Calcification present at each carotid terminus, mild in degree. No high grade focal stenosis involving either MCA. Sylvian branches are grossly symmetric, bilaterally. There is a dominant right vertebral artery. No high grade vertebral artery or basilar artery stenosis. Bilater al LOG LOADER are grossly patent. There is a diffuse mild narrowing of the M1 segment left MCA, which could relate to early branching or could relate to a concentric mild narrowing, although there is no obvious focal luminal thrombus or high grade stenosis. there is a tiny triangular shaped contrast opacification at the undersurface of the terminal left ICA which likely relates to an infundibulum at the site of the small caliber P COM. The bilateral GIRISH reveal no high grade stenosis or occlusion. IMPRESSION: Scattered atherosclerotic disease as above, without a definitive high grade stenosis or occlusion.
== END 2017-05-26 14:51 | DRG 280 ==
LOC: ERS 12:02 → 2NO 13:29 → 2SE 05-23 17:51
PROVIDERS: ADMIT Internal Medicine; ATTEND Internal Medicine
PROC: 4A023N7 Measurement of Cardiac Sampling and Pressure, Left Heart, Percutaneous Approach (ICD-10-PCS; principal; 2017-05-22)
PROC: B2111ZZ Fluoroscopy of Multiple Coronary Arteries using Low Osmolar Contrast (ICD-10-PCS; 2017-05-22)
DX: I21.4 Non-ST elevation (NSTEMI) myocardial infarction (principal); I63.512 Cerebral infarction due to unspecified occlusion or stenosis of left middle cerebral artery; G81.91 Hemiplegia, unspecified affecting right dominant side; E44.1 Mild protein-calorie malnutrition; R13.12 Dysphagia, oropharyngeal phase; E83.39 Other disorders of phosphorus metabolism; F03.90 Unspecified dementia, unspecified severity, without behavioral disturbance, psychotic disturbance, mood disturbance, and anxiety; E03.9 Hypothyroidism, unspecified; E78.5 Hyperlipidemia, unspecified; N40.0 Benign prostatic hyperplasia without lower urinary tract symptoms; G89.29 Other chronic pain; M54.5 Low back pain; J30.9 Allergic rhinitis, unspecified; F41.9 Anxiety disorder, unspecified; I25.10 Atherosclerotic heart disease of native coronary artery without angina pectoris; Z68.24 Body mass index [BMI] 24.0-24.9, adult; E87.6 Hypokalemia; I34.0 Nonrheumatic mitral (valve) insufficiency; Z79.01 Long term (current) use of anticoagulants; I12.9 Hypertensive chronic kidney disease with stage 1 through stage 4 chronic kidney disease, or unspecified chronic kidney disease; N18.2 Chronic kidney disease, stage 2 (mild); R47.81 Slurred speech
CPT/HCPCS: 0042T; 36415; 36416; 70450; 70496; 70498; 70551; 71010; 76942; 80048; 80053; 80061; 80069; 81001; 82553; 82607; 82746; 83690; 83735; 84100; 84443; 84484; 85014; 85018; 85025; 85049; 85610; 85730; 93005; 93306; 93454; 93798; 96361; 96372; 96374; 96375; 99152; A4216; C1769; G8978-GP-CL; G8979-GP-CJ; G8987-GO-CK; G8988-GO-CI; G8996-GN-CJ; G8996-GN-CK; G8997-GN-CH; G8997-GN-CI; J1644; J1650; J2250; J2270; J2405; J3010

== ENCOUNTER 2017-07-04 19:40 | Inpatient (IN) | payer MEDICARE, MEDICAID ==
[2017-07-04 20:26] LABS: #Eosinphils 1.4 thou/uL (0.0-0.7); #Monocytes 0.6 thou/uL (0.11-0.59); #Neutrophils 6.6 thou/uL (1.40-6.50); %Basophils 0.3 % (0.0-1.0); %Eosinophils 12.1 % (0.0-10.0); %Lymphocytes 25.9 % (21.0-51.0); %Monocytes 5.4 % (0.0-10.0); Hematocrit 40.4 % (42.0-52.0); Mean Platelet Volume 7.8 fL (7.4-10.4); Red Blood Cell (RBC) Count 4.25 mill/uL (4.70-6.10); White Blood Cell (WBC) Count 11.6 thou/uL (4.8-10.8)
[2017-07-04] MEDS ORDERED: Morphine 4 MG/ML VIAL ONE (20:31)
[2017-07-04 20:32] LABS: PTT 30.5 SEC (22.9-36.1); Prothrombin Time 13.8 SEC (12.0-14.7)
[2017-07-04 20:49] LABS: ALT (SGPT) 28 U/L (8-55); AST (SGOT) 25 U/L (5-34); Alkaline Phosphatase 105 U/L (40-150); Anion Gap 15 mmol/L (10-20); BUN (Urea Nitrogen) 48 mg/dL (8.4-25.7); Bilirubin, Total 0.7 mg/dL (0.2-1.2); Calc. Creatinine Clearance 0 mL/min (70-130); Calcium 9.6 mg/dL (7.8-10.44); Carbon Dioxide 22 mmol/L (23-31); Chloride 105 mmol/L (98-107); Estimated GFR-MDRD 31; Globulin 3.8 g/dL (2.4-3.5); Protein, Total 7.8 g/dL (5.8-8.1)
[2017-07-04] MEDS ORDERED: Ondansetron ODT 4 MG TAB SL PRN (22:29)
[2017-07-04] MEDS ORDERED: Sodium Chloride 0.9% 1,000 ML IV SCH (22:29)
[2017-07-04] MEDS ORDERED: Ondansetron HCl/PF 4 MG/2 ML Vial IVP PRN ×2 (22:29→22:45)
[2017-07-04] MEDS ORDERED: Ondansetron ODT 4 MG TAB PO PRN (22:45)
[2017-07-04] MEDS ORDERED: Mag-Al 1200 mg/1200 mg/30 ML UDCUP PO PRN (22:45)
[2017-07-04] MEDS ORDERED: Sodium Chloride 0.65% Nasal 44 ML BOT EA NARE PRN (22:45)
[2017-07-04] MEDS ORDERED: Chloraseptic Spray 180 ml Bottle PO PRN (22:45)
[2017-07-04] MEDS ORDERED: Nitroglycerin 0.4 MG TAB (25 Tab Bottle) SL PRN (22:45)
[2017-07-04] MEDS ORDERED: Eucerin (Mineral Oil/Petrolatum,White) 30 gm Jar TOP PRN (22:45)
[2017-07-04] MEDS ORDERED: Artificial Tears 18 DROP/0.9 ML EA EYE PRN (22:45)
[2017-07-04] MEDS ORDERED: Diabetic Tussin 200 MG/10 ML UDCUP PO PRN (22:45)
[2017-07-04] MEDS ORDERED: Milk Of Magnesia 30 ML UDCUP PO PRN (22:45)
[2017-07-04] MEDS ORDERED: Senokot 8.6 MG TAB PO PRN (22:45)
[2017-07-04] MEDS ORDERED: Labetalol HCl 100 MG/20 ML VIAL SLOW IVP PRN (22:45)
[2017-07-04] MEDS ORDERED: Loratadine 10 MG TAB PO PRN (22:45)
[2017-07-04] MEDS ORDERED: Loperamide HCl 2 MG CAP PO PRN (22:45)
[2017-07-04] MEDS ORDERED: cloNIDine 0.1 MG TAB PO PRN (22:45)
[2017-07-04] MEDS ORDERED: hydrALAZINE 20 MG/ML VIAL SLOW IVP PRN (22:45)
[2017-07-04] MEDS ORDERED: Nitroglycerin 0.4 MG TAB (25 Tab Bottle) SL SCH (22:45)
[2017-07-04] MEDS ORDERED: Vancomycin HCl 1 GM in Premix Bag 1 BAG IVPB SCH (23:00)
[2017-07-04 23:26] VITALS: BMI 20.9
--- NOTE | 2017-07-04 23:38 | PDOC.EVN ---
Event Note - Event Note Event Note: Patient seen and examined. dictation note to follow
[2017-07-04] MEDS: Sodium Chloride 0.9% 1,000 ML IV SCH (23:41)
[2017-07-04] MEDS ORDERED: Piperacillin/Tazobactam 3.375 GM in Sodium Chloride 0.9% 100 ML IVPB SCH (23:59)
[2017-07-05] MEDS: Acetaminophen 325 MG TAB PO PRN ×2 (01:57→20:10)
[2017-07-05] MEDS ORDERED: Piperacillin/Tazobactam 3.375 GM in Sodium Chloride 0.9% 100 ML IVPB SCH (02:00)
--- NOTE | 2017-07-05 02:06 | HP ---
DATE OF SERVICE: 07/04/2017 PRIMARY CARE PHYSICIAN: Steven Grigsby M.D. REASON FOR ADMISSION: Toe discoloration. HISTORY OF PRESENT ILLNESS: An 87-year-old male who has history of 3- vessel coronary artery disease as well as a recent diagnosis of left middle cerebral artery cerebrovascular accident who presented to the emergency room with a history of 2-week history of fifth and fourth toe discoloration and pain. Subsequently, patient's family member also noticed discoloration of great toe, second and third toe today. Family member reported that he was having pain in his right fifth and fourth toe and it was discolored to purple and today they also noticed similar discoloration in the first 3 toes as well, but first 3 toes are not painful and last 2 toes are painful. Patient denies any fever or chills. Patient denies any trauma. Patient denies any palpitation , dizziness or syncope. He denies any chest pain. He denies any constipation, diarrhea. Family member noticed that his discoloration has gotten worse from pinky to purple. In the emergency room Doppler study was done and he had very good distal pulsation at the dorsalis pedis on both sides. He does not have any recent vascularization. When he was admitted during previous hospitalization, at that time, patient had a cardiac catheterization done and patient was found with 3-vessel CAD, but after admission, the patient developed acute left MCA CVA and that is why patient was treated for CVA and patient had good recovery. At this time, patient is also found with acute kidney failure. ALLERGIES: HYDROCODONE, MORPHINE. CURRENT HOME MEDICATIONS: Amlodipine 5 mg p.o. daily, aspirin 81 mg p.o. daily , Lipitor 40 mg p.o. at bedtime, Plavix 75 mg p.o. daily, Aricept 5 mg p.o. at bedtime, Proscar 5 mg p.o. daily, Flonase nasal spray daily, Imdur 60 mg p.o. daily, Synthroid 75 mcg p.o. daily, nitroglycerin 0.4 mg sublingual p.r.n., potassium chloride 20 mEq p.o. daily, Flomax 0.4 mg p.o. at bedtime. REVIEW OF SYSTEMS: The following complete review of systems was negative, unless otherwise mentioned in the HPI or below: Constitutional: Weight loss or gain, ability to conduct usual activities. Skin : Rash, itching. Eyes: Double vision, pain. ENT/Mouth: Nose bleeding, neck stiffness, pain, tenderness. Cardiovascular: Palpitations, dyspnea on exertion , orthopnea. Respiratory: Shortness of breath, wheezing, cough, hemoptysis, fever or night sweats. Gastrointestinal: Poor appetite, abdominal pain, heartburn, nausea, vomiting, constipation, or diarrhea. Genitourinary: Urgency , frequency, dysuria, nocturia. Musculoskeletal: Pain, swelling. Neurologic/ Psychiatric: Anxiety, depression. Allergy/Immunologic: Skin rash, bleeding tendency. Please see my HPI for pertinent positives and negatives. All other review of systems reviewed and negative except as mentioned in the HPI. Please note that the patient is Anguillan speaking only, but family members are present and who are fluent in [place], they helped me to get a history as well as review of systems. PAST MEDICAL HISTORY: Benign enlargement of prostate, hypothyroidism, hypertension, dyslipidemia, chronic low back pain, allergic rhinitis, senile dementia, 3-vessel coronary artery disease, left MCA CVA. PAST PSYCHIATRIC HISTORY: Anxiety and depression. PAST SURGICAL HISTORY: Hernia repair in 2000, gallbladder surgery in 2007, cardiac catheterization in 2017. FAMILY HISTORY: Mother by age of 45 from kidney related disease, one brother from stomach cancer, one sister from heart disease and pneumonia. SOCIAL HISTORY: Patient is and lives at home with his . No history of tobacco, alcohol or illicit drug abuse. EMERGENCY ROOM COURSE: The patient is given morphine 4 mg. PHYSICAL EXAMINATION: VITAL SIGNS: On arrival, blood pressure 182/99, pulse 80, respiratory rate 20, temperature 98.0, saturation 97% on room air, weight 58.9 kilograms. GENERAL: Patient is currently alert, awake, no obvious acute distress. HEENT: Head, normocephalic, atraumatic. Eyes: Pupils round, reactive to light. Extraocular muscles intact. ENT: Oropharynx within normal limits. Moist mucous membranes. No oral lesions. No pharyngeal erythema, no exudate. NECK: Supple. Range of motion is normal. No meningeal signs of irritation. LUNGS: Clear to auscultation without any rhonchi or rales. CARDIAC: S1, S2 regular. No murmur, no gallop, no rub. ABDOMEN: Soft, bowel sounds present, nontender, nondistended. No organomegaly , no mass, no suprapubic tenderness. BACK: Unremarkable, no CVA tenderness. EXTREMITIES: Upper extremity passive movement of all joints are normal. Lower extremity, right foot has ecchymotic, erythematous and tender toe especially the last two, fourth and fifth toe is tender and first 3 toes are nontender but they have purplish discoloration on the plantar aspect. Capillary filling is more than 2 seconds, distal pulsation are intact. NEUROLOGIC: Nonfocal examination. His speech is normal. He has recovered from stroke very well. SKIN: No skin rash other than the discoloration of the toe. PSYCHIATRIC: Normal affect. SIGNIFICANT LABORATORY DATA: EKG based on my review, normal sinus rhythm, nonspecific ST-T changes. CBC: WBC 11.6, hemoglobin 13.3, platelet 219. INR 1.0. BMP: Sodium 138, potassium 4.3, chloride 105, carbon dioxide 22, BUN 48, creatinine 2.03, glucose 104, calcium 9.6. LFT: AST 25, ALT 28, alkaline phosphatase 105, albumin 4.0. ASSESSMENT AND PLAN: 1. Toe discoloration. I am suspecting blue toe syndrome, probably from atheroemboli, underlying infection needs to be excluded. The patient has underlying atherosclerosis and so he is at high risk for atheroemboli. We will consult cardiovascular surgeon for their opinion. I will empirically start antibiotic therapy at this point. This patient has good distal pulsation. We will monitor patient's discoloration of toe very well in hospital.vasculitis less likely, will consider empiric antibiotics. 2. Acute kidney failure. Patient will be given IV fluid and will repeat BMP tomorrow. We will avoid nephrotoxic agents. 3. History of hypertension. We will continue patient's blood pressure medication, Imdur 60 mg p.o. daily, amlodipine 5 mg p.o. daily and we will also use hydralazine, clonidine p.r.n. basis. 4. Dyslipidemia. We will continue Lipitor 40 mg p.o. at bedtime. 5. Benign enlargement of prostate. We will continue Flomax 0.4 mg p.o. at bedtime and Proscar 5 mg p.o. daily. 6. Hypothyroidism. We will continue Synthroid 75 mcg p.o. daily. 7. History of three-vessel coronary artery disease. Patient will continue aspirin and Plavix along with statin therapy. We are also consulting cardiovascular surgeon. 8. History of cerebrovascular accident. We will consult PT, OT while in hospital. 9. Deep venous thrombosis prophylaxis, heparin 5000 units subcu twice daily. 10. Gastrointestinal prophylaxis. Pepcid 20 mg p.o. daily. CODE STATUS: The patient is FULL CODE. The patient's is surrogate decision maker. Disposition plan based on clinical course. We are expecting patient's stay in hospital more than 2 midnights. Plan of care discussed with the patient in detail. MTDD
[2017-07-05 02:30] LABS: Bilirubin Negative (Negative); Blood, Urine Negative (Negative); Glucose, Urine (Dipstick) Negative (Negative); Ketone, Urine Negative (Negative); Nitrite Negative (Negative); Protein, Urine (Dipstick) Negative (Neg-Trace); Urobilinogen 0.2 mg/dL (0.2-1.0)
[2017-07-05 02:34] LABS: Bacteria/HPF None Seen HPF (None Seen); Hyaline Casts/LPF 0-3 HYALINE CAST LPF (0-3 Hyaline); RBC/HPF None Seen HPF (0-3); Squamous Epithelial None Seen HPF (0-3); WBC/HPF 0-3 HPF (0-3)
[2017-07-05 02:55] LABS: Sodium, Urine 148 mmol/L (Not Available)
[2017-07-05] MEDS ORDERED: Fentanyl 100 MCG/2 ML VIAL SLOW IVP SCH (03:30)
[2017-07-05 04:44] LABS: #Eosinphils 1.2 thou/uL (0.0-0.7); #Lymphocytes 1.6 thou/uL (1.20-3.40); #Monocytes 0.1 thou/uL (0.11-0.59); #Neutrophils 3.9 thou/uL (1.40-6.50); %Basophils 0.5 % (0.0-1.0); %Eosinophils 17.6 % (0.0-10.0); %Monocytes 1.1 % (0.0-10.0); Hematocrit 38.5 % (42.0-52.0); Mean Platelet Volume 8.2 fL (7.4-10.4); Red Blood Cell (RBC) Count 4.08 mill/uL (4.70-6.10); White Blood Cell (WBC) Count 6.7 thou/uL (4.8-10.8)
[2017-07-05 04:54] LABS: ALT (SGPT) 27 U/L (8-55); AST (SGOT) 24 U/L (5-34); Alkaline Phosphatase 95 U/L (40-150); Anion Gap 10 mmol/L (10-20); BUN (Urea Nitrogen) 45 mg/dL (8.4-25.7); Bilirubin, Total 0.8 mg/dL (0.2-1.2); Calc. Creatinine Clearance 21 mL/min (70-130); Calcium 8.9 mg/dL (7.8-10.44); Carbon Dioxide 25 mmol/L (23-31); Chloride 105 mmol/L (98-107); Estimated GFR-MDRD 33; Globulin 3.3 g/dL (2.4-3.5); Protein, Total 6.9 g/dL (5.8-8.1)
[2017-07-05] MEDS: Levothyroxine Sodium 75 MCG TAB PO SCH (05:30)
[2017-07-05] MEDS: Piperacillin/Tazobactam 2.25 GM in Sodium Chloride 0.9% 100 ML IVPB SCH ×3 (09:00→20:09)
[2017-07-05] MEDS: Amlodipine 5 MG TAB PO SCH (09:04)
[2017-07-05] MEDS: Clopidogrel Bisulfate 75 MG TAB PO SCH (09:04)
[2017-07-05] MEDS: Famotidine 20 MG TAB PO SCH (09:05)
[2017-07-05] MEDS: Aspirin 81 mg Enteric Coated Tablet PO SCH (09:05)
[2017-07-05] MEDS: Finasteride 5 MG TAB PO SCH (09:05)
[2017-07-05] MEDS: Heparin 5,000 UNITS/ML VIAL SC SCH ×2 (09:06→20:10)
[2017-07-05] MEDS: Sodium Chloride 0.9% 1,000 ML IV SCH ×2 (09:14→22:11)
[2017-07-05] MEDS: Fluticasone Propionate Nasal Spray 16 gm Bottle NASAL SCH (16:19)
--- NOTE | 2017-07-05 17:15 | PDOC.PN ---
- Subjective Encounter Start Date: 07/05/17 Encounter Start Time: 17:12 Mr. Torres was seen today in follow-up of right toe discoloration. He is now sitting up and eating, and does not have any complaints. - Objective Resuscitation Status: Resuscitation Status FULL:Full Resuscitation MAR Reviewed: Yes Vital Signs & Weight: Vital Signs (12 hours) Temp Pulse Resp BP BP Pulse Ox 07/05/17 09:04 62 154/73 H 07/05/17 08:00 97.4 F L 62 20 154/73 H 96 Weight Admit Weight 122 lb 3.2 oz Weight 122 lb 3.2 oz I&O: 07/04/17 07/05/17 07/06/17 06:59 06:59 06:59 Intake Total 1004 Balance 1004 Result Diagrams: 07/05/17 04:07 07/05/17 04:07 Phys Exam - Physical Examination HEENT: PERRLA Respiratory: no wheezing, no rales, no rhonchi, clear to auscultation bilateral Cardiovascular: RRR, no significant murmur Gastrointestinal: soft, non-tender, positive bowel sounds Musculoskeletal: no edema wound photos were noted Dx/Plan (1) Gangrene of toe of right foot Code(s): I96 - GANGRENE, NOT ELSEWHERE CLASSIFIED Status: Acute (2) CKD (chronic kidney disease) stage 2, GFR 60-89 ml/min Code(s): N18.2 - CHRONIC KIDNEY DISEASE, STAGE 2 (MILD) Status: Chronic Comment: no dosage adjustment needed at present. (3) Dementia Code(s): F03.90 - UNSPECIFIED DEMENTIA WITHOUT BEHAVIORAL DISTURBANCE Status: Chronic (4) Dyslipidemia Code(s): E78.5 - HYPERLIPIDEMIA, UNSPECIFIED Status: Chronic (5) HTN (hypertension) Code(s): I10 - ESSENTIAL (PRIMARY) HYPERTENSION Status: Chronic Qualifiers: Hypertension type: essential hypertension Qualified Code(s): I10 - Essential (primary) hypertension - Plan * Ischemia- 4th and 5th toes on the right foot- discussed with Dr. Enrique. Will treat medically for now * He can be discharged on aspirin and plavix, and will not require antibiotics * HTN- blood pressure is labile- will review his home medications and start as appropriate * CAD- stable * Dementia- stable, his is requesting help at home- will therefore consult case management for [facility] evaluation * Home tomorrow.
[2017-07-05] MEDS ORDERED: Donepezil HCl 5 MG TAB PO SCH (21:00)
[2017-07-05] MEDS ORDERED: Atorvastatin Calcium 40 MG TAB PO SCH (21:00)
[2017-07-05] MEDS ORDERED: Tamsulosin HCl 0.4 MG CAP PO SCH (21:00)
--- NOTE | 2017-07-05 23:30 | CON ---
DATE OF CONSULTATION: 07/05/2017 HISTORY OF PRESENT ILLNESS: This is an 87-year-old gentleman who was hospitalized about 6 weeks ago with chest pain. At that time, he underwent cardiac catheterization, showing three-vessel disease, s evere; however, due to the patient's comorbidities, family requested medical management. 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 He was u ltimately discharged. Family notes about 2-3 weeks ago he developed discoloration of the skin of the lower extremity, particularly the right as well as in his right fifth and fourth toe. Last week, he began complaining of pain in his fifth toe and due to progressive discoloration in the other toes, burke avitia presented last night to the hospital. PAST MEDICAL HISTORY: Includes chronic back pain for which he has had multiple injections in the pas t. He also has hypertension and dyslipidemia with mild dementia. PAST SURGICAL HISTORY: Includes herniorrhaphy and cholecystectomy. SOCIAL HISTORY: He is a nonsmoker. He is and accompanied by his . He is originally [facility] and is primarily Welsh speaking. PHYSICAL EXAMINATION: GENERAL: Height 5 feet 4 inches, weight 122. Blood pressure elevated about 170 systolic. NECK: No carotid bruits. LUNGS: Clear to auscultation. CARDIAC: Regular rate and rhythm. No murmurs. ABDOMEN: Obese, soft, nontender. No aneurysm. EXTREMITIES: He has palpable femoral, popliteal, dorsalis pedis, and posterior tibial pulses. He paez s some ecchymotic skin changes over his right knee, right tibia and most notably in the plantar surfa ce of the distal aspect of his forefoot and some early necrosis of the medial aspect of the fifth toe . There is some mottling of the adjacent toes. The left great toe also shows some very mild skin ch anges as does the second toe. 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 He did have catheter manipulation during his cardiac catheterization with a post-catheterizati on stroke, making me suspicious that he has atherosclerotic plaque that has embolized from his aorta. I have refused his CTA from his last admission of his carotid arteries and indeed he has a very lar ge amount of soft plaque in the distal aortic arch, that appears very irregular, certainly could be a source of atheroemboli. If this was indeed the source I would have expected some renal and perhaps mesenteric involvement in the form of atheroemboli. His creatinine has increased from about 1-2; how ever, he has no hematuria suggesting a renal infarction. In any event, given his overall age and med ical condition, I do not think any intervention would be indicated at this time. Under better circum stances, a CT angiogram of his abdominal aorta and iliac system would be appropriate, but once again if no treatment can be offered due to his advanced age and multiple comorbidities, I did not think sc annscot would be helpful. Hopefully, this pain will gradually improve in his foot and worst case scen ario would be a toe amputation for pain that did not resolve. Repeat embolization, however, would be more problematic and potentially . The patient was already on antiplatelets and there is no ev idence that full anticoagulation would be of any benefit to prevent atheroembolization.
[2017-07-05] MEDS ORDERED: Vancomycin HCl 500 MG in Sodium Chloride 0.9% 100 ML IVPB SCH (23:59)
[2017-07-06] MEDS: Piperacillin/Tazobactam 2.25 GM in Sodium Chloride 0.9% 100 ML IVPB SCH ×2 (02:12→09:50)
[2017-07-06] MEDS: Sodium Chloride 0.9% 1,000 ML IV SCH (04:26)
[2017-07-06] MEDS: Levothyroxine Sodium 75 MCG TAB PO SCH (05:01)
[2017-07-06] MEDS: Famotidine 20 MG TAB PO SCH (08:07)
[2017-07-06] MEDS: Acetaminophen 325 MG TAB PO PRN (08:07)
[2017-07-06] MEDS: Clopidogrel Bisulfate 75 MG TAB PO SCH (08:07)
[2017-07-06] MEDS: Amlodipine 5 MG TAB PO SCH (08:07)
[2017-07-06] MEDS: Aspirin 81 mg Enteric Coated Tablet PO SCH (08:08)
[2017-07-06] MEDS: Finasteride 5 MG TAB PO SCH (08:08)
--- NOTE | 2017-07-06 10:49 | PDOC.PN ---
- Subjective Encounter Start Date: 07/06/17 Encounter Start Time: 10:47 Mr. Torres was seen today in follow-up of painful toes on the right foot. - Objective Resuscitation Status: Resuscitation Status FULL:Full Resuscitation MAR Reviewed: Yes Vital Signs & Weight: Vital Signs (12 hours) Temp Pulse Resp BP Pulse Ox 07/06/17 08:00 98.5 F 67 20 07/06/17 07:51 98.5 F 67 20 171/76 H 98 07/06/17 04:00 98.0 F 60 16 153/79 H 98 07/06/17 00:00 97.9 F 73 14 154/80 H 97 Weight Admit Weight 122 lb 3.2 oz Weight 122 lb 3.2 oz I&O: 07/05/17 07/06/17 07/07/17 06:59 06:59 06:59 Intake Total 1004 3223 Balance 1004 3223 Result Diagrams: 07/05/17 04:07 07/05/17 04:07 Phys Exam - Physical Examination HEENT: PERRLA Respiratory: no wheezing, no rales, no rhonchi, clear to auscultation bilateral Cardiovascular: RRR, no significant murmur Gastrointestinal: soft, non-tender, positive bowel sounds Musculoskeletal: no edema Right foot- pulses are strong, at the D.P, and P.T. dark discoloration of 4th and 5th toes and 1st toe Dx/Plan (1) Gangrene of toe of right foot Code(s): I96 - GANGRENE, NOT ELSEWHERE CLASSIFIED Status: Acute (2) CKD (chronic kidney disease) stage 2, GFR 60-89 ml/min Code(s): N18.2 - CHRONIC KIDNEY DISEASE, STAGE 2 (MILD) Status: Chronic Comment: no dosage adjustment needed at present. (3) Dementia Code(s): F03.90 - UNSPECIFIED DEMENTIA WITHOUT BEHAVIORAL DISTURBANCE Status: Chronic (4) Dyslipidemia Code(s): E78.5 - HYPERLIPIDEMIA, UNSPECIFIED Status: Chronic (5) HTN (hypertension) Code(s): I10 - ESSENTIAL (PRIMARY) HYPERTENSION Status: Chronic Qualifiers: Hypertension type: essential hypertension Qualified Code(s): I10 - Essential (primary) hypertension - Plan * Gangrene and Ischemia of the teos on the right foot- stable overnight * HTN- blood pressure is slightly elevated- can cntinue management as an outpatient * Patient is stable for discharge home.
[2017-07-06 12:01] VITALS: BP 132/83; TEMP 98.7
[2017-07-06] MEDS: Fluticasone Propionate Nasal Spray 16 gm Bottle NASAL SCH (12:13)
--- NOTE | 2017-07-06 14:06 | DIS ---
DATE OF ADMISISON: 07/04/2017 DATE OF DISCHARGE: 07/06/2017 PRIMARY CARE PHYSICIAN: Dr. Steven Grigsby. DISCHARGE DISPOSITION: Home. PRIMARY DISCHARGE DIAGNOSES: 1. Gangrene of the first, fourth, and fifth toes on the right foot. 2. Probable arterial embolic event. 3. Acute kidney injury. 4. Hypertension. 5. Dyslipidemia. 6. Chronic low back pain. 7. Allergic rhinitis. 8. Senile dementia. 9. Coronary artery disease. 10. Recent left middle cerebral artery cerebrovascular accident. DISCHARGE MEDICATIONS: Include aspirin 81 mg daily, Plavix 75 mg a day, Tylenol #3 with codeine q.4 hours as needed, Lipitor 40 mg at bedtime, Donepezil 5 mg at bedtime, finasteride 5 mg daily, Flonase nasal spray in each naris daily, isosorbide mononitrate 60 mg daily, levothyroxine 75 mcg daily, Nit rostat 0.4 sublingual p.r.n., potassium chloride 20 mEq daily, and tamsulosin 0.4 mg at bedtime. CODE STATUS: FULL CODE. ALLERGIES: HYDROCODONE and MORPHINE. Please note that the allergy is shortness of breath from anxie ty for the HYDROCODONE and MORPHINE. HOSPITAL COURSE: Mr. Torres is a pleasant 87-year-old gentleman who presented to the emergency room w ith painful discoloration of his great toe and fourth and fifth toes on the right foot. He was admit berny and seen by Vascular Surgery. It was felt that this was likely an embolic event from a soft athe romatous plaque in the aorta. The patient has advanced age and dementia as well as had suffered from an episode of acute renal failure during his hospital course and for this reason, Dr. Enrique did not feel that it was indicated and in the patient's best interest to pursue a arteriogram. It is also fe lt that he would likely be treated medically anyway. He recommends continuing with the aspirin and P lavix and hopes that the patient will not throw another clot. The patient also was noted to have an increase in his creatinine and I suspect this could be due to a possible embolic event to the kidneys as well. His creatinine began to trend downward during the admission and he should have close follo wup with his primary care physician regarding his renal function as well. It was also discussed with Dr. Enrique and it was felt that antibiotics are not necessary at the time of discharge. If his sympt oms worsened, then the worst case scenario is that the patient may require amputation of the affected toe.
== END 2017-07-06 12:59 | disposition home health service (06) | DRG 300 ==
LOC: ERS 19:40 → T4-B 21:00
PROVIDERS: ADMIT Internal Medicine; ATTEND Internal Medicine
DX: I75.021 Atheroembolism of right lower extremity (principal); I96 Gangrene, not elsewhere classified; N17.9 Acute kidney failure, unspecified; N28.0 Ischemia and infarction of kidney; I70.0 Atherosclerosis of aorta; E78.5 Hyperlipidemia, unspecified; I25.10 Atherosclerotic heart disease of native coronary artery without angina pectoris; M54.5 Low back pain; J30.9 Allergic rhinitis, unspecified; F03.90 Unspecified dementia, unspecified severity, without behavioral disturbance, psychotic disturbance, mood disturbance, and anxiety; Z79.02 Long term (current) use of antithrombotics/antiplatelets; Z79.82 Long term (current) use of aspirin; Z86.73 Personal history of transient ischemic attack (TIA), and cerebral infarction without residual deficits; N40.0 Benign prostatic hyperplasia without lower urinary tract symptoms; E03.9 Hypothyroidism, unspecified; I12.9 Hypertensive chronic kidney disease with stage 1 through stage 4 chronic kidney disease, or unspecified chronic kidney disease; N18.2 Chronic kidney disease, stage 2 (mild); F41.9 Anxiety disorder, unspecified; F32.9 Major depressive disorder, single episode, unspecified
CPT/HCPCS: 36415; 80053; 81001; 82570; 83605; 84156; 84300; 85025; 85610; 85730; 93005; 96374; A4216; G8978-GP-CJ; G8979-GP-CJ; G8980-GP-CJ; J1644; J2270; J2543; J3010; J3370; J7050

== ENCOUNTER 2017-07-09 17:47 | Emergency (ER) | payer MEDICARE, MEDICAID ==
[2017-07-09 18:16] LABS: #Basophils 0.1 thou/uL (0.0-0.2); #Eosinphils 0.3 thou/uL (0.0-0.7); #Lymphocytes 2.6 thou/uL (1.20-3.40); #Monocytes 0.6 thou/uL (0.11-0.59); %Basophils 0.5 % (0.0-1.0); %Eosinophils 2.8 % (0.0-10.0); %Lymphocytes 24.8 % (21.0-51.0); %Monocytes 5.8 % (0.0-10.0); Mean Platelet Volume 7.5 fL (7.4-10.4); Red Blood Cell (RBC) Count 4.35 mill/uL (4.70-6.10); White Blood Cell (WBC) Count 10.5 thou/uL (4.8-10.8)
[2017-07-09 18:38] LABS: ALT (SGPT) 42 U/L (8-55); AST (SGOT) 34 U/L (5-34); Alkaline Phosphatase 135 U/L (40-150); Anion Gap 15 mmol/L (10-20); BUN (Urea Nitrogen) 42 mg/dL (8.4-25.7); Bilirubin, Total 0.8 mg/dL (0.2-1.2); Calc. Creatinine Clearance 0 mL/min (70-130); Calcium 9.5 mg/dL (7.8-10.44); Carbon Dioxide 21 mmol/L (23-31); Chloride 102 mmol/L (98-107); Estimated GFR-MDRD 26; Globulin 3.9 g/dL (2.4-3.5); Protein, Total 8.1 g/dL (5.8-8.1)
[2017-07-09 20:40] LABS: POC Est. GFR-MDRD-African-Amer 36; POC Estimated GFR-MDRD 29
== END 2017-07-09 21:16 | disposition home or self-care (01) ==
LOC: ERS 17:47
DX: N17.9 Acute kidney failure, unspecified (principal); F03.90 Unspecified dementia, unspecified severity, without behavioral disturbance, psychotic disturbance, mood disturbance, and anxiety; I25.2 Old myocardial infarction; I10 Essential (primary) hypertension; E78.5 Hyperlipidemia, unspecified; Z79.82 Long term (current) use of aspirin; Z79.899 Other long term (current) drug therapy
CPT/HCPCS: 36415; 80069; 85025; 93005; 96360; 99214; G0463

== ENCOUNTER 2017-07-11 20:50 | Inpatient (IN) | payer MEDICARE, MEDICAID ==
[2017-07-11 23:16] LABS: #Lymphocytes 2.5 thou/uL (1.20-3.40); #Monocytes 0.8 thou/uL (0.11-0.59); #Neutrophils 6.8 thou/uL (1.40-6.50); %Basophils 0.3 % (0.0-1.0); %Eosinophils 8.9 % (0.0-10.0); %Lymphocytes 22.4 % (21.0-51.0); %Monocytes 6.9 % (0.0-10.0); Hematocrit 38.7 % (42.0-52.0); Mean Platelet Volume 7.7 fL (7.4-10.4); Red Blood Cell (RBC) Count 4.12 mill/uL (4.70-6.10)
[2017-07-11 23:25] LABS: ALT (SGPT) 43 U/L (8-55); AST (SGOT) 44 U/L (5-34); Alkaline Phosphatase 136 U/L (40-150); Anion Gap 16 mmol/L (10-20); BUN (Urea Nitrogen) 39 mg/dL (8.4-25.7); Bilirubin, Total 0.9 mg/dL (0.2-1.2); Calc. Creatinine Clearance 0 mL/min (70-130); Calcium 9.7 mg/dL (7.8-10.44); Carbon Dioxide 23 mmol/L (23-31); Chloride 99 mmol/L (98-107); Estimated GFR-MDRD 28; Globulin 4.1 g/dL (2.4-3.5); Protein, Total 8.4 g/dL (5.8-8.1)
[2017-07-11 23:31] LABS: Troponin I 0.405 ng/mL (< 0.028)
--- NOTE | 2017-07-11 23:56 | RAD ---
CHEST ONE VIEW: History: Weakness, dyspnea. Comparison: 05-21-17 FINDINGS: Cardiac silhouette is magnified by projection. Lungs remain hyperinflated. Atelectasis at the lung ba ses is stable. Calcified granuloma at the left apex is unchanged. No lobar consolidation or pneumotho rax are visible. IMPRESSION: Chronic type findings are stable. No active cardiopulmonary abnormalities are demonstrated. POS: [facility]
[2017-07-12] MEDS ORDERED: Sodium Chloride 0.9% 1,000 ML IV SCH ×2 (02:15→07:30)
[2017-07-12 02:25] VITALS: BMI 19.5
[2017-07-12] MEDS ORDERED: hydrALAZINE 20 MG/ML VIAL SLOW IVP SCH (03:45)
[2017-07-12] MEDS ORDERED: Acetaminophen/Codeine 30-300mg Tablet PO SCH (05:00)
[2017-07-12] MEDS ORDERED: Ondansetron HCl/PF 4 MG/2 ML Vial IVP PRN (07:25)
[2017-07-12] MEDS ORDERED: Milk Of Magnesia 30 ML UDCUP PO PRN (07:25)
[2017-07-12] MEDS ORDERED: hydrALAZINE 20 MG/ML VIAL SLOW IVP PRN (07:25)
[2017-07-12] MEDS ORDERED: Nitroglycerin 0.4 MG TAB (25 Tab Bottle) SL PRN (07:25)
[2017-07-12] MEDS ORDERED: Ondansetron ODT 4 MG TAB PO PRN (07:25)
[2017-07-12] MEDS ORDERED: Acetaminophen 325 MG TAB PO PRN (07:25)
--- NOTE | 2017-07-12 07:33 | RAD ---
RIGHT FOOT 3 VIEWS: Date: 07/11/17 HISTORY: Third, fourth, and fifth toe infection. FINDINGS: There is minimal soft tissue swelling of particularly the fourth and fifth toes. No overt bone destru ctive changes. No fracture or dislocation. If there is clinical concern for osteomyelitis, follow-up NM study is suggested. IMPRESSION: Soft tissue swelling of particularly the fourth and fifth toes without fracture or overt bony destruc tion. If osteomyelitis is a clinical concern, suggest follow-up MRI. POS: [facility]
--- NOTE | 2017-07-12 08:14 | HP ---
PRIMARY CARE PHYSICIAN: Gladys Zhang M.D. CHIEF COMPLAINT: Worsening pain. HISTORY OF PRESENT ILLNESS: Mr. Torres is a pleasant 87-year-old gentleman who has a history of fairl y advanced dementia and therefore he is unable to give me any significant history. However, he was r ecently discharged from our facility due to gangrene of the third, fourth, and fifth toes on the righ t foot. This is thought to be secondary to a thromboembolic event from some soft plaque that the pat ient has in his aorta. He was evaluated by Vascular Surgery and felt that he was not an appropriate candidate for any surgical intervention due to his advanced age, dementia, recent cerebrovascular acc ident and overall poor physical condition. He also had acute renal failure at that time. He had ins tructed the patient that if his pain in the toes got progressively worse, then he can be reevaluated for possible amputation for pain control. The patient in fact did have worsening pain in his foot. His son who is at the bedside says that the pain has gotten so bad that the patient can no longer wal k on his feet. He noted some swelling in his legs as well as well as some cramping. He also says th at he believes that followed by his blood pressure dropped and he got cold. He has had decrease in a ppetite and he is not drinking and eating well and for this reason, they brought him back to the hosp ital. There was no mention of any fevers or chills. No chest pain or shortness of breath etc. and n o new focal areas of pain. The review of systems is unobtainable as the patient has advanced dementi a. PAST MEDICAL HISTORY: Taken from the previous history and physical dated 07/04/[address] Sophy munoz nd this was also reviewed with the patient's son at the bedside and includes BPH, hypothyroidism, hyp ertension, dyslipidemia, recent left MCA and CVA, history of coronary artery disease which is being t reated medically, chronic low back pain and allergic rhinitis. PAST PSYCHIATRIC HISTORY: Anxiety and depression. PAST SURGICAL HISTORY: He has had a hernia repair, gallbladder surgery in 2007 and a recent cardiac catheterization. FAMILY HISTORY: Significant for mother who from kidney disease. One brother from s tomach cancer and another sister from heart disease and pneumonia. SOCIAL HISTORY: He is . He lives at home with his . No history of any alcohol or tobacc o or drug use. ALLERGIES: HYDROCODONE and MORPHINE. CURRENT MEDICATIONS: Include aspirin 81 mg daily, Plavix 75 mg daily, Lipitor 40 mg at bedtime, done pezil 5 mg at bedtime, finasteride 5 mg daily, Flonase nasal spray, isosorbide mononitrate 60 daily, levothyroxine 75 mcg daily, Nitrostat as needed, potassium chloride 20 mEq a day, Flomax 0.4 mg daily , tramadol 50 mg daily, fentanyl patch 25 mcg every 3 days, Tylenol #3 for breakthrough pain. PHYSICAL EXAMINATION: GENERAL: The patient is an alert, but he is oriented only to person. VITAL SIGNS: Blood pressure was 187/89, heart rate 84, respiratory rate of 20, O2 sat was 97% on ramon m air, and temperature is 98.1. HEENT: Pupils are equal, round, and reactive. Extraocular muscles are intact. His sclerae are anic teric. Throat; no erythema, no exudates. NECK: No adenopathy, no bruits. LUNGS: Clear. There is no wheezing, no rales. CARDIOVASCULAR: He has a normal S1 and S2. I do not appreciate an S3 or S4. No murmurs, clicks or rubs. ABDOMEN: Soft, it is nontender and nondistended. Positive for bowel sounds. No rebound, no guardin g. EXTREMITIES: There is no clubbing, cyanosis, no edema. He has got palpable dorsalis pedis pulses on the right foot. He has got some mottling of the right foot on the heel and along the dorsal aspect of the foot and he has got a purplish discoloration of the entire fifth toe, the lateral aspect of th e fourth toe; however, the feet are warm. They are not cold. There is some mottling of the left fracisco t, but no focal areas of purplish discoloration. NEUROLOGIC: Neurologically, the exam is nonfocal. LABORATORY DATA AND IMAGING: He had a troponin of 0.4. Sodium 134, potassium 4.2, chloride was 99, CO2 was 23, BUN of 39, creatinine 2.26, glucose is 130. White blood cell count 11, hemoglobin 13, he matocrit is 38.7, platelet count was 242. EKG was sinus tachycardia with some nonspecific ST wave ch anges. ASSESSMENT AND PLAN: This is an 87-year-old gentleman that presents with worsening toe pain. He has a known history of gangrene in the third, fourth, and fifth digits of the right foot, presumed to be due to an atheroembolic event. He has been deemed a poor surgical candidate due to increased risk o f complications. He will be admitted to the hospital; 1. For the ischemia of the toes on the right foot, we will consult Vascular Surgery again to see whe ther or not he has reached a point for consideration of amputation or should we try to increase his m edications for pain for better control and allow the toes to auto amputate. 2. Acute renal failure. His creatinine is only slightly better from his last admission. He has an elevated BUN to creatinine ratio and likely could still have some degree of volume depletion. We nina l continue IV hydration and continue to monitor his renal function. 3. History of coronary artery disease. His troponin is slightly elevated; however, he has been eval uated by Cardiology during his previous admission and was felt not to be a surgical candidate. His t roponin on his last admission was as high as 20 and it is now 0.4. 4. Dementia. This appears to be stable. We will try to avoid sedating medications to prevent delir ium. 5. Hypertension. His blood pressure has been elevated. We will restart his usual medications, but then we made him to titrate for optimal blood pressure control.
[2017-07-12] MEDS ORDERED: Potassium Chloride 20 MEQ TAB PO SCH (09:00)
[2017-07-12] MEDS ORDERED: FLU VACC TS2017-18 (>65YR) 0.5 ML SYRINGE IM ONE (09:00)
[2017-07-12] MEDS ORDERED: Non-Formulary Item 1 EACH (Potassium Chloride [Potassium Chloride] 20 MEQ) PO SCH (09:00)
[2017-07-12] MEDS ORDERED: Finasteride 5 MG TAB PO SCH (09:00)
[2017-07-12] MEDS ORDERED: Clopidogrel Bisulfate 75 MG TAB PO SCH (09:00)
[2017-07-12] MEDS ORDERED: Aspirin 81 mg Enteric Coated Tablet PO SCH (09:00)
[2017-07-12] MEDS ORDERED: Fluticasone Propionate Nasal Spray 16 gm Bottle NASAL SCH (09:00)
[2017-07-12] MEDS ORDERED: Amlodipine 5 MG TAB PO SCH (09:00)
[2017-07-12] MEDS ORDERED: Levothyroxine Sodium 75 MCG TAB PO SCH (09:00)
[2017-07-12] MEDS: Heparin 5,000 UNITS/ML VIAL SC SCH ×2 (09:32→16:40)
[2017-07-12] MEDS: Acetaminophen/Codeine 30-300mg Tablet PO SCH ×3 (09:41→16:38)
--- NOTE | 2017-07-12 12:20 | CON ---
DATE OF CONSULTATION: 07/12/2017 REASON FOR CONSULTATION: Evaluate the patient's right foot vascular status. HISTORY OF PRESENT ILLNESS: Mr. Torres is an unfortunate 87-year-old gentleman who was recently hospi talized with a painful right foot. He underwent cardiac catheterization approximately 6 weeks ago an d suffered a postoperative embolic stroke. On top of his dementia he has been left in a fairly frail state. He was evaluated by Dr. Enrique last week and found to have pain in his right fourth and fifth toes with some discoloration. This was felt to be another embolic event from his aorta. His aorta appeared to have a fairly soft atherosclerotic debris within it. He was on antiplatelet agent, was s ent home. He received tramadol at home which made him nauseated and he was not able to take it for p ain control and represented through the emergency department with a painful right foot. His right fourth and fifth toes do have some discoloration, but they are certainly in no way threaten ed. He has good perfusion throughout his right foot. He has a palpable posterior tibial pulse. PAST MEDICAL HISTORY: 1. Chronic back pain. 2. Coronary artery disease. 3. Hypertension. 4. Dyslipidemia. 5. Dementia. 6. Status post cerebrovascular accident. 7. Peripheral blue toe syndrome. PAST SURGICAL HISTORY: 1. Herniorrhaphy. 2. Cholecystectomy. SOCIAL HISTORY: He does not use tobacco. He is . His speaks good Wolof and has inter preted for me. REVIEW OF SYSTEMS: Not performed due to the patient's dementia. PHYSICAL EXAMINATION: GENERAL: This is a well-developed, very thin elderly appearing gentleman resting comfortably in bed without complaint. VITAL SIGNS: Height is 5 feet 4 inches, weight 113 pounds, temperature is 98.1, pulse is 95 and regu lar, blood pressure 162/100. HEENT: Sclerae nonicteric. Pupils are equal and round bilaterally. NECK: Supple. He has no bruits. CHEST: Clear bilaterally. HEART: Rhythm is regular, without murmur. ABDOMEN: Soft and nontender. EXTREMITIES: Have no edema. His right lower extremity is as described above. VASCULAR: He has palpable carotid, radial, femoral, and posterior tibial pulses bilaterally. VENOUS: There are no venous varicosities. PSYCHIATRIC: Psychiatric exam is not performed. ASSESSMENT AND PLAN: The patient is already on Plavix 75 mg every day, and aspirin 81 mg daily for d ual antiplatelet therapy. He is taking Lipitor 40 mg at bedtime for hyperlipidemia. Apparently that tramadol did not agree with his stomach. I would suggest maybe Tylenol #3 to help him with pain con trol at home. There is no indication for further vascular evaluation, intervention or need for surgi travis debridement of his foot. I have discussed this with the family. They understand that this is go ing to be a long process to see if his toes will improve. I think in his situation they probably nina l. He probably will not need any debridement or amputation.
--- NOTE | 2017-07-12 13:25 | DIS ---
DATE OF ADMISSION: 07/12/2017 DATE OF DISCHARGE: 07/12/2017 PRIMARY CARE PHYSICIAN: Dr. Zhang. DISCHARGE DISPOSITION: Home. PRIMARY DISCHARGE DIAGNOSES: 1. Gangrene of the fourth and fifth or ischemia of the fourth and fifth toes, status post thromboemb olic event. 2. History of recent left middle cerebral artery cerebrovascular accident. 3. Coronary artery disease. 4. Benign prostatic hypertrophy. 5. Hypertension. 6. Hypothyroidism. 7. Chronic low back pain. DISCHARGE MEDICATIONS: There is no change in the patient's medicines and he is to continue tramadol 50 mg as needed, Flomax 0.4 at bedtime, potassium chloride 20 mEq daily, Nitrostat 0.4 sublingual as needed, levothyroxine 50 mcg daily, isosorbide mononitrate 60 mg daily, Flonase nasal spray 1 in each naris daily, finasteride 5 mg daily, fentanyl 25 mcg patch every 3 days, donepezil 5 mg at bedtime, Plavix 75 mg daily, Lipitor 40 mg at bedtime, aspirin 81 mg daily, amlodipine 5 mg daily and Tylenol #3 as needed. CODE STATUS: FULL CODE. ALLERGIES: HYDROCODONE and MORPHINE. HOSPITAL COURSE: Mr. Torres is a pleasant 87-year-old gentleman, who presented to the emergency room with worsening pain in his fourth and fifth toes after he had been evaluated about a week ago for the same. He was evaluated by Vascular Surgery at that time and deemed not a surgical candidate and sneha t his symptoms should be treated medically. He was also instructed that if the pain got worse, he wa s to come to the hospital or Urgent Care for consideration of amputation of the toes. He had been co mplaining of pain at home and as a result his family brought him to the emergency room. This was blue pite the patient recently being added fentanyl by his primary care physician to help with pain contro l. By the time, he came to the hospital, he was feeling much better and his pain was essentially rel ieved. Nothing different was done. He was seen by Vascular Surgery again. They did not feel that t he toes required amputation at this time. I suspect that there is some degree of dementia, which is making it hard to evaluate his level of pain. The patient's family admits that when he gets home, he seems to walk around more and then complained of the pain, then when he gets to the hospital. He ba sically has no complaints and this is despite no change in his medications. The patient will subsequ ently be discharged home. He was to have close outpatient followup with his primary care physician a nd his renal function will need to continue to be monitored.
[2017-07-12 16:19] VITALS: BP 152/87; TEMP 98.1
[2017-07-12] MEDS ORDERED: DONEPEZIL HCL 5 MG PO SCH (21:00)
[2017-07-12] MEDS ORDERED: Atorvastatin Calcium 40 MG TAB PO SCH (21:00)
[2017-07-12] MEDS ORDERED: Donepezil HCl 5 MG TAB PO SCH (21:00)
[2017-07-12] MEDS ORDERED: Tamsulosin HCl 0.4 MG CAP PO SCH (21:00)
== END 2017-07-12 17:26 | disposition home or self-care (01) | DRG 300 ==
LOC: ERS 20:50 → 2NO 07-12 00:06
PROVIDERS: ADMIT Internal Medicine; ATTEND Internal Medicine
DX: I96 Gangrene, not elsewhere classified (principal); N17.9 Acute kidney failure, unspecified; I82.401 Acute embolism and thrombosis of unspecified deep veins of right lower extremity; F03.90 Unspecified dementia, unspecified severity, without behavioral disturbance, psychotic disturbance, mood disturbance, and anxiety; I99.8 Other disorder of circulatory system; I10 Essential (primary) hypertension; I25.10 Atherosclerotic heart disease of native coronary artery without angina pectoris; E03.9 Hypothyroidism, unspecified; N40.0 Benign prostatic hyperplasia without lower urinary tract symptoms; G89.29 Other chronic pain; M54.5 Low back pain; Z86.73 Personal history of transient ischemic attack (TIA), and cerebral infarction without residual deficits; Z88.5 Allergy status to narcotic agent; Z79.82 Long term (current) use of aspirin; Z79.02 Long term (current) use of antithrombotics/antiplatelets; Z80.0 Family history of malignant neoplasm of digestive organs; Z82.49 Family history of ischemic heart disease and other diseases of the circulatory system; Z84.1 Family history of disorders of kidney and ureter; Z83.1 Family history of other infectious and parasitic diseases
CPT/HCPCS: 71010; 80053; 82553; 83880; 84484; 85025; 93005; A4216; J0360; J1644

== ENCOUNTER 2017-07-15 13:50 | Outpatient (CLI) | payer MEDICARE, MEDICAID ==
--- NOTE | 2017-07-15 19:13 | ULT ---
RENAL SONOGRAM: 07/15/2017 HISTORY: Kidney disease. FINDINGS: The kidneys demonstrate a normal sonographic appearance bilaterally without evidence of a renal mass, renal calculus, or hydronephrosis. The right kidney measures 9.3 cm x 4.4 cm, with the left kidney measuring 10 cm x 5.1 cm. The urinary bladder is partially distended and demonstrates a normal sonographic appearance. Prostat e gland is at the upper limits of normal in transverse dimensions measuring 4.9 cm. IMPRESSION: Normal appearing bilateral kidneys without evidence of hydronephrosis. POS: LAUREN
== END 2017-07-15 13:51 | disposition home or self-care (01) ==
LOC: ULT 13:50
PROVIDERS: ATTEND Internal Medicine Nephrology
DX: N18.3 Chronic kidney disease, stage 3 (moderate) (principal)
CPT/HCPCS: 76770

== ENCOUNTER 2017-08-28 06:17 | Inpatient (IN) | payer MEDICARE, MEDICAID ==
[2017-08-27 13:02] VITALS: BMI 18.8
[2017-08-28 07:02] LABS: #Eosinphils 1.6 thou/uL (0.0-0.7); #Monocytes 0.9 thou/uL (0.11-0.59); #Neutrophils 7.8 thou/uL (1.40-6.50); %Basophils 0.3 % (0.0-1.0); %Eosinophils 12.1 % (0.0-10.0); %Lymphocytes 22.7 % (21.0-51.0); %Monocytes 6.5 % (0.0-10.0); %Neutrophils 58.4 % (42.0-75.0); Hemoglobin 11.1 g/dL (14.0-18.0); Mean Corpuscular HGB CONC 33.4 g/dL (32.0-36.0); Mean Corpuscular Hemoglobin 31.6 pg (27.0-31.0); Mean Corpuscular Volume 94.5 fl (80.0-94.0); Mean Platelet Volume 6.4 fL (7.4-10.4); Platelet Count 314 thou/uL (130-400); RBC Distribution Width 13.8 % (11.5-14.5); Red Blood Cell (RBC) Count 3.53 mill/uL (4.70-6.10); White Blood Cell (WBC) Count 13.4 thou/uL (4.8-10.8)
[2017-08-28] MEDS ORDERED: Midazolam HCl 2 mg/2 ml Vial ONE ×2 (07:06→07:11)
[2017-08-28] MEDS ORDERED: Fentanyl 100 MCG/2 ML VIAL ONE ×2 (07:06→07:11)
[2017-08-28] MEDS ORDERED: Ampicillin/Sulbactam 3 GM in Sodium Chloride 0.9% 100 ML IVPB ONE (07:15)
[2017-08-28 07:23] LABS: Anion Gap 15 mmol/L (10-20); BUN (Urea Nitrogen) 56 mg/dL (8.4-25.7); Calc. Creatinine Clearance 14 mL/min (70-130); Calcium 9.4 mg/dL (7.8-10.44); Carbon Dioxide 24 mmol/L (23-31); Chloride 103 mmol/L (98-107); Estimated GFR-MDRD 24; Glucose 114 mg/dL (83-110); Potassium 3.7 mmol/L (3.5-5.1); Sodium 138 mmol/L (136-145)
[2017-08-28] MEDS ORDERED: Ondansetron HCl/PF 4 MG/2 ML Vial IVP PRN ×2 (09:26→12:31)
[2017-08-28] MEDS ORDERED: Non-Formulary Medication 1 EACH PO PRN (09:26)
[2017-08-28] MEDS ORDERED: Promethazine HCl 25 MG/ML VIAL IM/IV PRN (09:26)
[2017-08-28] MEDS ORDERED: Fentanyl 100 MCG/2 ML VIAL SLOW IVP PRN (09:28)
[2017-08-28] MEDS ORDERED: HYDROcodone/Acetaminophen 5/325 mg Tablet PO PRN ×4 (09:28→12:31)
--- NOTE | 2017-08-28 10:05 | OP ---
DATE OF PROCEDURE: 08/28/2017 PREOPERATIVE DIAGNOSIS: Gangrene of the right toes. POSTOPERATIVE DIAGNOSIS: Gangrene of the right toes. PROCEDURE: Right transmetatarsal amputation. SURGEON: Smith Menezes M.D. ANESTHESIA: General endotracheal. ESTIMATED BLOOD LOSS: Less than 100. PROCEDURE IN DETAIL: After consent was obtained, the patient was brought to the operating room and p laced in the supine position on the table. Dr. Schmidt placed an ankle block. The patient was sedated . Right foot was prepped and draped in usual sterile fashion. A posterior flapped transmetatarsal i ncision was marked and then made with a #10 blade. Dissection through the subcutaneous tissue down t o the metatarsals anteriorly was obtained with electrocautery. The posterior flap was elevated with electrocautery. The periosteum was elevated off of the metatarsal bones. Bones were divided with ri b iain and the toes removed. Bony ends were smoothed with a rasp. Multiple small bleeders were ti ed. The posterior flap was healthy. Wound was copiously irrigated. After hemostasis was obtained t he flap was brought over the ends of the metatarsal resection with 0 Vicryl suture in an interrupted fashion. A running 2-0 Vicryl was used to bring the skin edges close and the skin closed with clips. Fluff dressing was applied. The patient tolerated the procedure well and was transferred to the re covery room in stable condition.
[2017-08-28] MEDS ORDERED: Fleet Enema 133 ML BOT PR PRN (12:31)
[2017-08-28] MEDS ORDERED: Milk Of Magnesia 30 ML UDCUP PO PRN (12:31)
[2017-08-28] MEDS ORDERED: Bisacodyl 5 MG TAB PO PRN (12:31)
[2017-08-28] MEDS ORDERED: Nitroglycerin 0.4 MG TAB (25 Tab Bottle) SL PRN (12:31)
[2017-08-28] MEDS ORDERED: Bisacodyl 10 MG SUPP PR PRN (12:31)
[2017-08-28] MEDS ORDERED: Levothyroxine Sodium 75 MCG TAB PO SCH (13:00)
[2017-08-28] MEDS ORDERED: Finasteride 5 MG TAB PO SCH (13:00)
[2017-08-28] MEDS ORDERED: Clopidogrel Bisulfate 75 MG TAB PO SCH (13:00)
[2017-08-28] MEDS ORDERED: Gabapentin 300 MG CAP PO SCH (13:00)
[2017-08-28] MEDS ORDERED: Tamsulosin HCl 0.4 MG CAP PO SCH (13:00)
[2017-08-28] MEDS ORDERED: Amlodipine 5 MG TAB PO SCH (13:00)
[2017-08-28] MEDS ORDERED: Aspirin 81 mg Enteric Coated Tablet PO SCH (13:00)
[2017-08-28] MEDS ORDERED: PROPOFOL 200 MG/20 ML VIAL ONE (14:00)
[2017-08-28] MEDS: Amlodipine 5 MG TAB PO SCH (14:19)
[2017-08-28] MEDS: Ampicillin/Sulbactam 3 GM in Sodium Chloride 0.9% 100 ML IVPB SCH ×2 (14:21→19:57)
[2017-08-28] MEDS: Fluticasone Propionate Nasal Spray 16 gm Bottle NASAL SCH (14:27)
[2017-08-28] MEDS: Fentanyl 100 MCG/2 ML VIAL SLOW IVP PRN ×3 (15:40→22:03)
[2017-08-28] MEDS: Donepezil HCl 5 MG TAB PO SCH (20:01)
[2017-08-28] MEDS: Atorvastatin Calcium 40 MG TAB PO SCH (20:01)
[2017-08-28] MEDS: Acetaminophen ER (8hr) 650 MG TAB PO PRN (20:01)
[2017-08-28] MEDS: Gabapentin 300 MG CAP PO SCH (20:02)
[2017-08-28] MEDS ORDERED: Acetaminophen 1,000 MG in Premix Bag 1 BAG IVPB SCH (21:45)
[2017-08-29] MEDS: Fentanyl 100 MCG/2 ML VIAL SLOW IVP PRN ×5 (00:51→19:56)
[2017-08-29] MEDS: Ampicillin/Sulbactam 3 GM in Sodium Chloride 0.9% 100 ML IVPB SCH ×4 (01:00→19:51)
[2017-08-29] MEDS ORDERED: Acetaminophen 1,000 MG in Premix Bag 1 BAG IVPB PRN (03:30)
[2017-08-29] MEDS: Levothyroxine Sodium 75 MCG TAB PO SCH (06:23)
[2017-08-29] MEDS: Clopidogrel Bisulfate 75 MG TAB PO SCH (08:21)
[2017-08-29] MEDS ORDERED: Acetaminophen/Codeine 30-300mg Tablet PO PRN (08:22)
[2017-08-29] MEDS: Finasteride 5 MG TAB PO SCH (08:22)
[2017-08-29] MEDS: Aspirin 81 mg Enteric Coated Tablet PO SCH (08:22)
[2017-08-29] MEDS: Gabapentin 300 MG CAP PO SCH ×3 (08:22→20:00)
[2017-08-29] MEDS: Tamsulosin HCl 0.4 MG CAP PO SCH (08:22)
[2017-08-29] MEDS: Amlodipine 5 MG TAB PO SCH (08:23)
[2017-08-29] MEDS: Fluticasone Propionate Nasal Spray 16 gm Bottle NASAL SCH (08:27)
[2017-08-29] MEDS: Acetaminophen/Codeine 30-300mg Tablet PO PRN ×3 (10:55→22:48)
[2017-08-29] MEDS: Donepezil HCl 5 MG TAB PO SCH (20:00)
[2017-08-29] MEDS: Atorvastatin Calcium 40 MG TAB PO SCH (20:00)
[2017-08-30] MEDS: Fentanyl 100 MCG/2 ML VIAL SLOW IVP PRN ×2 (00:04→22:21)
[2017-08-30] MEDS: Levothyroxine Sodium 75 MCG TAB PO SCH (06:11)
[2017-08-30] MEDS: Acetaminophen/Codeine 30-300mg Tablet PO PRN ×2 (06:11→20:14)
[2017-08-30] MEDS: Aspirin 81 mg Enteric Coated Tablet PO SCH (08:45)
[2017-08-30] MEDS: Finasteride 5 MG TAB PO SCH (08:45)
[2017-08-30] MEDS: Gabapentin 300 MG CAP PO SCH ×3 (08:45→20:16)
[2017-08-30] MEDS: Amlodipine 5 MG TAB PO SCH (08:45)
[2017-08-30] MEDS: Fluticasone Propionate Nasal Spray 16 gm Bottle NASAL SCH (08:46)
[2017-08-30] MEDS: Clopidogrel Bisulfate 75 MG TAB PO SCH (08:46)
[2017-08-30] MEDS: Tamsulosin HCl 0.4 MG CAP PO SCH (08:46)
[2017-08-30] MEDS: Atorvastatin Calcium 40 MG TAB PO SCH (20:13)
[2017-08-30] MEDS: Donepezil HCl 5 MG TAB PO SCH (20:14)
[2017-08-31] MEDS: Acetaminophen ER (8hr) 650 MG TAB PO PRN (06:38)
[2017-08-31] MEDS: Levothyroxine Sodium 75 MCG TAB PO SCH (06:38)
[2017-08-31] MEDS: Gabapentin 300 MG CAP PO SCH ×3 (08:59→20:03)
[2017-08-31] MEDS: Aspirin 81 mg Enteric Coated Tablet PO SCH (08:59)
[2017-08-31] MEDS: Finasteride 5 MG TAB PO SCH (08:59)
[2017-08-31] MEDS: Clopidogrel Bisulfate 75 MG TAB PO SCH (08:59)
[2017-08-31] MEDS: Tamsulosin HCl 0.4 MG CAP PO SCH (09:00)
[2017-08-31] MEDS: Amlodipine 5 MG TAB PO SCH (09:00)
[2017-08-31] MEDS ORDERED: hydrALAZINE 20 MG/ML VIAL SLOW IVP PRN ×2 (11:02)
[2017-08-31] MEDS: Fluticasone Propionate Nasal Spray 16 gm Bottle NASAL SCH (12:19)
[2017-08-31] MEDS: Acetaminophen/Codeine 30-300mg Tablet PO PRN ×2 (14:08→20:03)
[2017-08-31] MEDS: Donepezil HCl 5 MG TAB PO SCH (20:03)
[2017-08-31] MEDS: Atorvastatin Calcium 40 MG TAB PO SCH (20:03)
[2017-09-01] MEDS: Levothyroxine Sodium 75 MCG TAB PO SCH (06:17)
[2017-09-01] MEDS: Acetaminophen/Codeine 30-300mg Tablet PO PRN ×2 (06:19→12:23)
[2017-09-01] MEDS: Fluticasone Propionate Nasal Spray 16 gm Bottle NASAL SCH (08:37)
[2017-09-01] MEDS: Gabapentin 300 MG CAP PO SCH ×3 (08:38→21:00)
[2017-09-01] MEDS: Tamsulosin HCl 0.4 MG CAP PO SCH (08:38)
[2017-09-01] MEDS: Amlodipine 5 MG TAB PO SCH (08:38)
[2017-09-01] MEDS: Finasteride 5 MG TAB PO SCH (08:39)
[2017-09-01] MEDS: Aspirin 81 mg Enteric Coated Tablet PO SCH (08:39)
[2017-09-01] MEDS: Clopidogrel Bisulfate 75 MG TAB PO SCH (08:39)
[2017-09-01] MEDS: Donepezil HCl 5 MG TAB PO SCH (21:00)
[2017-09-01] MEDS: Atorvastatin Calcium 40 MG TAB PO SCH (21:00)
[2017-09-02] MEDS: Levothyroxine Sodium 75 MCG TAB PO SCH (06:48)
[2017-09-02] MEDS: Amlodipine 5 MG TAB PO SCH (09:06)
[2017-09-02] MEDS: Finasteride 5 MG TAB PO SCH (09:07)
[2017-09-02] MEDS: Clopidogrel Bisulfate 75 MG TAB PO SCH (09:07)
[2017-09-02] MEDS: Tamsulosin HCl 0.4 MG CAP PO SCH (09:07)
[2017-09-02] MEDS: Aspirin 81 mg Enteric Coated Tablet PO SCH (09:07)
[2017-09-02] MEDS: Gabapentin 300 MG CAP PO SCH ×2 (09:07→14:19)
[2017-09-02] MEDS: Fluticasone Propionate Nasal Spray 16 gm Bottle NASAL SCH (09:08)
[2017-09-02 12:30] VITALS: BP 172/90; TEMP 97.7
--- NOTE | 2017-09-04 13:23 | DIS ---
DATE OF ADMISSION: 08/28/2017 DATE OF DISCHARGE: 09/02/2017 DIAGNOSIS: Gangrene of the right foot. PROCEDURE: Right transmetatarsal amputation. DESCRIPTION OF HOSPITAL STAY: Mr. Torres was admitted for right transmetatarsal amputation. He has d one well and is being transferred to rehab.
== END 2017-09-02 20:45 | DRG 241 ==
LOC: SDC 06:17 → SURG A 09:21
PROVIDERS: ADMIT Thoracic Surgery (Cardiothoracic Vascular Surgery); ATTEND Thoracic Surgery (Cardiothoracic Vascular Surgery)
PROC: 0Y6M0Z9 Detachment at Right Foot, Partial 1st Ray, Open Approach (ICD-10-PCS; principal; 2017-08-28)
PROC: 0Y6M0ZB Detachment at Right Foot, Partial 2nd Ray, Open Approach (ICD-10-PCS; 2017-08-28)
PROC: 0Y6M0ZC Detachment at Right Foot, Partial 3rd Ray, Open Approach (ICD-10-PCS; 2017-08-28)
PROC: 0Y6M0ZD Detachment at Right Foot, Partial 4th Ray, Open Approach (ICD-10-PCS; 2017-08-28)
PROC: 0Y6M0ZF Detachment at Right Foot, Partial 5th Ray, Open Approach (ICD-10-PCS; 2017-08-28)
DX: I70.261 Atherosclerosis of native arteries of extremities with gangrene, right leg (principal); I10 Essential (primary) hypertension; Z86.73 Personal history of transient ischemic attack (TIA), and cerebral infarction without residual deficits
CPT/HCPCS: 36415; 80048; 85025; 88305; 88311; G8978-GP-CM; G8979-GP-CK; G8987-GO-CK; G8988-GO-CI; J0131; J0295; J2250; J2704; J3010; J7050

== ENCOUNTER 2018-01-21 17:29 | Inpatient (IN) | payer MEDICARE, MEDICAID ==
[2018-01-21 19:14] LABS: #Lymphocytes 2.3 thou/uL (1.20-3.40); #Neutrophils 6.5 thou/uL (1.40-6.50); %Basophils 0.4 % (0.0-1.0); %Eosinophils 9.1 % (0.0-10.0); %Lymphocytes 21.6 % (21.0-51.0); %Neutrophils 59.9 % (42.0-75.0); Hemoglobin 11.7 g/dL (14.0-18.0); Mean Corpuscular HGB CONC 34.3 g/dL (32.0-36.0); Mean Corpuscular Hemoglobin 31.3 pg (27.0-31.0); Mean Corpuscular Volume 91.3 fl (80.0-94.0); Mean Platelet Volume 6.6 fL (7.4-10.4); Platelet Count 304 thou/uL (130-400); RBC Distribution Width 11.9 % (11.5-14.5); Red Blood Cell (RBC) Count 3.76 mill/uL (4.70-6.10); White Blood Cell (WBC) Count 10.8 thou/uL (4.8-10.8)
[2018-01-21 19:39] LABS: ALT (SGPT) 14 U/L (8-55); AST (SGOT) 17 U/L (5-34); Albumin 3.9 g/dL (3.4-4.8); Alkaline Phosphatase 86 U/L (40-150); Anion Gap 14 mmol/L (10-20); BUN (Urea Nitrogen) 46 mg/dL (8.4-25.7); Bilirubin, Total 0.4 mg/dL (0.2-1.2); CRP (Inflammatory) 4.09 mg/dL (= or < 0.5); Calc. Creatinine Clearance 0 mL/min (70-130); Calcium 9.5 mg/dL (7.8-10.44); Carbon Dioxide 24 mmol/L (23-31); Chloride 107 mmol/L (98-107); Estimated GFR-MDRD 27; Globulin 3.6 g/dL (2.4-3.5); Glucose 110 mg/dL (83-110); Potassium 4.5 mmol/L (3.5-5.1); Protein, Total 7.5 g/dL (5.8-8.1); Sodium 140 mmol/L (136-145)
--- NOTE | 2018-01-21 20:12 | RAD ---
THREE VIEWS OF THE RIGHT FOOT 01/21/18 HISTORY: Amputation. Fever. Pain. FINDINGS: Amputation of the right foot. Postsurgical changes are noted. There is soft tissue swelling. There is mild demineralization involving the remainder of the digits. Correlate clinically for osteomyelitis. IMPRESSION: Findings as above. POS: LAUREN
[2018-01-21] MEDS ORDERED: Clindamycin/D5W 900 mg/50 ml Premix Bag ONE (20:25)
[2018-01-22] MEDS ORDERED: Ondansetron ODT 4 MG TAB SL PRN (00:17)
[2018-01-22] MEDS ORDERED: Ondansetron HCl/PF 4 MG/2 ML Vial IVP PRN ×2 (00:17→02:08)
--- NOTE | 2018-01-22 01:16 | HP ---
PRIMARY CARE PHYSICIAN: Dr. Gladys Zhang. DATE OF SERVICE: 01/21/2018 Patient was seen before midnight. HISTORY OF PRESENT ILLNESS: An 87-year-old male who was brought to emergency room by family member for evaluation of right foot pain. Patient has history of toe amputation on the right foot o n 09/05/2017. At this time, he is coming with erythema, swelling, tenderness, and wound over amputat ion stump site on the right side. He was having fever. He was feeling significant amount of pain an d tenderness and warmth in his right foot. His intensity of pain was about 8/10. At amputation stum p site, there was open wound draining serosanguineous fluid. He denies any trauma. His erythema, sw elling, and tenderness was getting worse day by day and that is why family member decided to bring mary cervantes to emergency room. Symptoms gotten more worse last night. REVIEW OF SYSTEMS: Please see my HPI for pertinent positive and negative. All other review of syste ms reviewed and negative except as mentioned in the HPI: Constitutional: Weight loss or gain, abili ty to conduct usual activities. Skin: Rash, itching. Eyes: Double vision, pain. ENT/Mouth: Nose bleeding, neck stiffness, pain, tenderness. Cardiovascular: Palpitations, dyspnea on exertion, ort hopnea. Respiratory: Shortness of breath, wheezing, cough, hemoptysis, fever, or night sweats. Gas trointestinal: Poor appetite, abdominal pain, heartburn, nausea, vomiting, constipation, or diarrhea . Genitourinary: Urgency, frequency, dysuria, nocturia. Musculoskeletal: Pain, swelling. Neurolo gic/Psychiatric: Anxiety, depression. Allergy/Immunologic: Skin rash, bleeding tendency. 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 PAST SURGICAL HISTORY: Cataract surgery, inguinal hernia repair, cholecystectomy, right foot all toe amputated for blue toe syndrome from embolic phenomena. PAST PSYCHIATRIC HISTORY: Reviewed and negative. ALLERGIES: HYDROCODONE, MORPHINE, TRAMADOL. SOCIAL HISTORY: Patient is a former smoker. He lives at home with family. No history of alcohol or other illicit drug abuse. FAMILY HISTORY: Multiple family members have history of hypertension, coronary artery disease. No s [place] family history of cancer or stroke. CURRENT HOME MEDICATIONS: Amlodipine 5 mg p.o. daily, aspirin 81 mg p.o. daily, Plavix 75 mg p.o. da simone, Aricept 5 mg p.o. at bedtime, Imdur 60 mg p.o. daily, Lipitor 40 mg p.o. daily, Proscar 5 mg p.o . daily, Flomax 0.4 mg p.o. at bedtime, levothyroxine 75 mcg p.o. daily, gabapentin 300 mg p.o. 3 vikas es daily. EMERGENCY ROOM COURSE: Patient is given clindamycin 900 mg. PHYSICAL EXAMINATION: VITAL SIGNS: On arrival blood pressure 140/82, pulse 84, respiratory rate 18, temperature 99.2, satu ration 97% on room air, weight 52.1 kilograms. GENERAL: Patient is currently alert, awake, mild distress due to pain on the right foot. HEENT: Head, normocephalic, atraumatic. Eyes: Pupils round, reactive to light. Extraocular muscle intact. ENT: Oropharynx within normal limits. Moist mucous membranes. No oral lesion, no pharyngeal erythe ma, no exudate. NECK: Supple, no JVD, no thyromegaly, no carotid bruit, no jugular venous distention. LUNGS: Clear to auscultation without any rhonchi or rales. CARDIAC: S1, S2 appears regular. No murmur, no gallop, no rub. ABDOMEN: Soft, bowel sounds present, nontender, nondistended. No organomegaly, no mass, no suprapub ic tenderness. BACK: Unremarkable. No CVA tenderness. EXTREMITIES: Upper extremity passive movement of all joints are normal. Lower extremity, right foot all toe amputated and amputation site is erythematous, swollen, tender. Patient also has a lateral portion of the incision site is open and with serosanguineous fluid. Medial portion of the incision is well healed. Range of motion is normal. Left lower extremity within normal limits. NEUROLOGIC: Nonfocal examination. He moves all 4 limbs. Plantar flexor on the left side. SKIN: No skin rash other than cellulitis of right foot. HEMATOLOGICAL SYSTEM: No lymphadenopathy. PSYCHIATRIC: Normal affect. SIGNIFICANT LABORATORY DATA: X-ray of foot showing soft tissue swelling. CBC: WBC 10.8, hemoglobin 11.7, platelet 304. ESR 31. BMP: Sodium 140, potassium 4.5, chloride 107, carbon dioxide 24, anio n gap 14, BUN 46, creatinine 2.32, glucose 110, calcium 9.5. LFT: AST 17, ALT 14, alkaline phosphat ase 86, albumin 3.9. CRP 4.09. ASSESSMENT AND PLAN: 1. Right foot amputation site cellulitis with wound. This patient has significant erythema, swellin g, and tenderness over right foot. He will need IV antibiotic therapy. We will start with vancomyci n, pharmacy adjusted dose along with Rocephin 1 gram IV daily. Pain will be controlled with fentanyl 25 mcg q.4 hourly p.r.n. We will consult Dr. Smith Menezes for evaluation. We will consult Wound C are team, we will monitor clinical response. 2. Coronary artery disease, peripheral arterial disease. Continue aspirin, Plavix, and statin thera py along with antihypertensive medication. We will also continue Imdur 60 mg p.o. daily. 3. Benign enlargement of prostate. Continue Flomax 0.4 mg p.o. daily and Proscar 5 mg p.o. daily. 4. Hypothyroidism. Continue Synthroid 75 mcg p.o. daily. 5. Hypertension. Continue amlodipine 5 mg p.o. daily along with Imdur 60 mg p.o. daily and p.r.n. b asis blood pressure medication. 6. Senile dementia. Continue Aricept 5 mg p.o. at bedtime. 7. Dyslipidemia. Continue Lipitor 40 mg p.o. at bedtime. 8. Chronic kidney disease, stage 4. We will monitor renal function, avoid nephrotoxin agent and all medications based on renal dose. 9. Deep venous thrombosis prophylaxis, heparin 5000 units subcutaneous twice daily. 10. Gastrointestinal prophylaxis. Pepcid 20 mg p.o. daily. CODE STATUS: Patient is FULL CODE. Patient's daughter is surrogate decision maker. Disposition plan based on clinical course. We are expecting that patient will stay in hospital more than 2 midnights. Plan of care discussed with the family member at bedside.
[2018-01-22 01:42] VITALS: BMI 19.8
[2018-01-22] MEDS ORDERED: Acetaminophen 325 MG TAB PO PRN (02:08)
[2018-01-22] MEDS ORDERED: Ondansetron ODT 4 MG TAB PO PRN (02:08)
[2018-01-22] MEDS ORDERED: Mag-Al 1200 mg/1200 mg/30 ML UDCUP PO PRN (02:08)
[2018-01-22] MEDS ORDERED: Milk Of Magnesia 30 ML UDCUP PO PRN (02:08)
[2018-01-22] MEDS ORDERED: Guaifenesin DM 100-10/5 ML UDCUP PO PRN (02:08)
[2018-01-22] MEDS ORDERED: Senokot 8.6 MG TAB PO PRN (02:08)
[2018-01-22] MEDS ORDERED: Loperamide HCl 2 MG CAP PO PRN (02:08)
[2018-01-22] MEDS ORDERED: Fentanyl 100 MCG/2 ML VIAL SLOW IVP PRN (02:09)
[2018-01-22] MEDS ORDERED: Nitroglycerin 0.4 MG TAB (25 Tab Bottle) SL PRN (02:11)
[2018-01-22] MEDS: cefTRIAXone\\ROCEPHIN 1 GM in Sodium Chloride 0.9% 100 ML IVPB SCH (02:52)
[2018-01-22] MEDS ORDERED: Vancomycin HCl 1 GM in Premix Bag 1 BAG IVPB SCH (04:00)
[2018-01-22 05:12] LABS: #Eosinphils 0.8 thou/uL (0.0-0.7); #Lymphocytes 2.3 thou/uL (1.20-3.40); #Monocytes 0.8 thou/uL (0.11-0.59); #Neutrophils 7.3 thou/uL (1.40-6.50); %Basophils 0.4 % (0.0-1.0); %Eosinophils 6.7 % (0.0-10.0); %Lymphocytes 20.5 % (21.0-51.0); %Monocytes 7.3 % (0.0-10.0); %Neutrophils 65.1 % (42.0-75.0); Hemoglobin 9.8 g/dL (14.0-18.0); Mean Corpuscular Volume 90.9 fl (80.0-94.0); Mean Platelet Volume 6.9 fL (7.4-10.4); Platelet Count 296 thou/uL (130-400); RBC Distribution Width 11.8 % (11.5-14.5); Red Blood Cell (RBC) Count 3.28 mill/uL (4.70-6.10); White Blood Cell (WBC) Count 11.2 thou/uL (4.8-10.8)
[2018-01-22 05:30] LABS: Anion Gap 12 mmol/L (10-20); BUN (Urea Nitrogen) 41 mg/dL (8.4-25.7); Calc. Creatinine Clearance 18 mL/min (70-130); Calcium 8.7 mg/dL (7.8-10.44); Carbon Dioxide 23 mmol/L (23-31); Chloride 107 mmol/L (98-107); Estimated GFR-MDRD 30; Glucose 147 mg/dL (83-110); Potassium 4.3 mmol/L (3.5-5.1); Sodium 138 mmol/L (136-145)
[2018-01-22] MEDS: Levothyroxine Sodium 75 MCG TAB PO SCH (05:56)
[2018-01-22 06:21] LABS: Bilirubin Negative (Negative); Blood, Urine Negative (Negative); Clarity CLEAR (Clear); Glucose, Urine (Dipstick) Negative (Negative); Leukocyte Negative (Negative); Nitrite Negative (Negative); Protein, Urine (Dipstick) Negative (Neg-Trace); Specific Gravity, Urine 1.011 (1.002-1.036); Urobilinogen 0.2 mg/dL (0.2-1.0); pH, Urine 6.5 (5.0-9.0)
[2018-01-22 06:23] LABS: Bacteria/HPF None Seen HPF (None Seen); Hyaline Casts/LPF 0-3 HYALINE CAST LPF (0-3 Hyaline); RBC/HPF 0-3 HPF (0-3); Squamous Epithelial None Seen HPF (0-3); WBC/HPF None Seen HPF (0-3)
[2018-01-22] MEDS: Amlodipine 5 MG TAB PO SCH (09:04)
[2018-01-22] MEDS: Aspirin 81 mg Enteric Coated Tablet PO SCH (09:04)
[2018-01-22] MEDS: Famotidine 20 MG TAB PO SCH (09:04)
[2018-01-22] MEDS: Clopidogrel Bisulfate 75 MG TAB PO SCH (09:04)
[2018-01-22] MEDS: Heparin 5,000 UNITS/ML VIAL SC SCH ×2 (09:05→21:27)
[2018-01-22] MEDS: Gabapentin 300 MG CAP PO SCH ×3 (09:05→21:27)
[2018-01-22] MEDS: Finasteride 5 MG TAB PO SCH (09:05)
[2018-01-22] MEDS: Saccharomyces boulardii 250 MG CAP PO SCH (09:06)
[2018-01-22] MEDS: Tamsulosin HCl 0.4 MG CAP PO SCH (09:07)
--- NOTE | 2018-01-22 12:14 | PDOC.PN ---
- Subjective Encounter Start Date: 01/22/18 Encounter Start Time: 10:40 -: old records requested/rev Pt seen and examined, chart reviewed in its entirety, this is my first visit with this patient Follow up for cellulitis to right TMA stump. no fevers overnight, no N/v/D/c, no Cp or SOB. only complaints is pain to dorsum foot just proximal to the incisional site and shooting pains plantar All systems reviewed and neg x as above - Objective Resuscitation Status: Resuscitation Status FULL:Full Resuscitation MAR Reviewed: Yes Vital Signs & Weight: Vital Signs (12 hours) Temp Pulse Resp BP Pulse Ox 01/22/18 11:39 98.7 F 75 20 95 01/22/18 09:04 83 01/22/18 08:00 98.8 F 83 12 01/22/18 07:40 98.8 F 83 12 134/65 92 L 01/22/18 04:00 84 18 143/68 H 94 L Weight Admit Weight 115 lb 12.8 oz Weight 115 lb 12.8 oz I&O: 01/21/18 01/22/18 01/23/18 06:59 06:59 06:59 Intake Total 400 240 Output Total 500 Balance -100 240 Result Diagrams: 01/22/18 04:24 01/22/18 04:24 Radiology Reviewed by me: Yes EKG Reviewed by me: Yes Phys Exam - Physical Examination Constitutional: NAD HEENT: PERRLA, moist MMs, sclera anicteric, oral pharynx no lesions Neck: no nodes, no JVD, supple, full ROM Respiratory: no wheezing, no rales, no rhonchi, clear to auscultation bilateral Cardiovascular: RRR, no significant murmur, no rub Gastrointestinal: soft, non-tender, no distention, positive bowel sounds Musculoskeletal: pulses present 1+ PT bilaterally Neurological: non-focal, normal sensation, moves all 4 limbs Lymphatic: no nodes Psychiatric: normal affect, A&O x 3 Skin: no rash, normal turgor, cap refill <2 seconds Deviation from normal: TMA stump with lateral open wound covered with scab. dorsally red and warm -: ? balottable fluid in dorsal bursa. tender to palpation Dx/Plan (1) Cellulitis of right foot without toes Code(s): L03.115 - CELLULITIS OF RIGHT LOWER LIMB Status: Acute Comment: looks strepish, but possible fluid in Burs. CV surg consulted, follow up on recs. ? Ct or MRI. clinda added for 72 hours for toxin inhibition, continue Vanc and CTX (2) BPH (benign prostatic hyperplasia) Code(s): N40.0 - BENIGN PROSTATIC HYPERPLASIA WITHOUT LOWER URINRY TRACT SYMP Status: Chronic Qualifiers: Lower urinary tract symptom presence: symptoms present Lower urinary tract symptom detail: incomplete bladder emptying Qualified Code(s): N40.1 - Benign prostatic hyperplasia with lower urinary tract symptoms; R39.14 - Feeling of incomplete bladder emptying; R39.14 - Feeling of incomplete bladder emptying (3) CKD (chronic kidney disease) stage 3, GFR 30-59 ml/min Code(s): N18.3 - CHRONIC KIDNEY DISEASE, STAGE 3 (MODERATE) Status: Chronic (4) Dyslipidemia Code(s): E78.5 - HYPERLIPIDEMIA, UNSPECIFIED Status: Chronic (5) HTN (hypertension) Code(s): I10 - ESSENTIAL (PRIMARY) HYPERTENSION Status: Chronic Qualifiers: Hypertension type: essential hypertension Qualified Code(s): I10 - Essential (primary) hypertension (6) Hypothyroidism Code(s): E03.9 - HYPOTHYROIDISM, UNSPECIFIED Status: Chronic Qualifiers: Hypothyroidism type: acquired Qualified Code(s): E03.9 - Hypothyroidism, unspecified (7) PVD (peripheral vascular disease) Code(s): I73.9 - PERIPHERAL VASCULAR DISEASE, UNSPECIFIED Status: Chronic (8) Protein-calorie malnutrition, moderate Code(s): E44.0 - MODERATE PROTEIN-CALORIE MALNUTRITION Status: Chronic (9) Senile dementia Code(s): F03.90 - UNSPECIFIED DEMENTIA WITHOUT BEHAVIORAL DISTURBANCE Status: Chronic Qualifiers: Dementia behavioral disturbance: without behavioral disturbance Qualified Code(s): F03.90 - Unspecified dementia without behavioral disturbance - Plan cont current plan of care, plan discussed w/ family, continue antibiotics, PT/OT * .
[2018-01-22] MEDS ORDERED: Clindamycin/D5W 300 MG/50 ML BAG IVPB SCH (12:30)
--- NOTE | 2018-01-22 12:39 | CON ---
DATE OF CONSULTATION: 01/22/2018 HISTORY OF PRESENT ILLNESS: Mr. 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 He has had a long course healing his tr ansmetatarsal wound. The wound itself looks as good as I have seen it since immediately postoperativ areli. He presents with swelling of the distal amputation. The foot is warm with some erythema, but it is n ot angry red. He has had no fevers at home. There is no drainage from the wound. The wound itself has completely healed medially until about [address] where there is still eschar present for the lateral portion. There is no expressible drainage. The swelling is ballottable and may repr esent an abscess. PAST MEDICAL HISTORY: 1. Peripheral vascular disease, status post blue toe embolization and amputation. 2. Coronary artery disease. 3. Depressed left ventricular ejection fraction. 4. Benign prostatic hypertrophy. 5. Hypothyroidism. 6. Dyslipidemia. 7. Dementia. 8. Hypertension. 9. Chronic renal insufficiency. PAST SURGICAL HISTORY: 1. Right foot amputation. 2. Cataract surgery. 3. Inguinal hernia repair. 4. Cholecystectomy. SOCIAL HISTORY: He is a former smoker. He lives at home with his and other family members. ALLERGIES: HYDROCODONE, MORPHINE, TRAMADOL. MEDICATIONS: Reviewed. PHYSICAL EXAMINATION: GENERAL: Well-developed, well-nourished male resting comfortably in bed. FOOT: Foot exam is as above. VASCULAR: He has palpable carotid, radial, femoral and popliteal pulses bilaterally. VENOUS: There are no venous varicosities. LUNGS: Clear bilaterally. HEART: Rhythm is regular. ABDOMEN: Soft and nontender. ASSESSMENT AND PLAN: ? Abscess of the right foot. We will check a CT scan. He has already been maddie neha on vancomycin and ceftriaxone.
[2018-01-22] MEDS: Fluticasone Propionate Nasal Spray 16 gm Bottle NASAL SCH (13:48)
[2018-01-22] MEDS: Clindamycin/D5W 900 MG in Premix Bag 1 BAG IVPB SCH ×2 (14:20→21:26)
--- NOTE | 2018-01-22 15:51 | CT ---
CT OF RIGHT FOOT PERFORMED WITHOUT CONTRAST ENHANCEMENT: 01/22/18 HISTORY: Patient had toes amputated in August 2017. Increased pain in extremity and possible fever. Due to patient's low GFR, no IV contrast was administered. There is some generalized bony demineralization noted. There has been amputation across the base or t he metatarsals. I do not see any definite features that would suggest osteomyelitis of the amputated stumps. The only area of slight concern is some lucency which extends through the residual stump of the base of the first metatarsal which extends through the cortex on the medial side. The possibility that this represents cortical changes related to osteomyelitis are felt to be unlikely but if there is any reason to suspect osteomyelitis at the level of this amputated stump of the first metatarsal, this would have to be a consideration. This lucent area could indicate a fracture line possibly as an insufficiency type fracture. IMPRESSION: 1. No evidence of soft tissue abscess. 2. Generalized bony demineralization. There is a lucency extending transversely across the amput ated base of the first metatarsal. this would be the only area of concern for possible osteomyelitis. Clinical correlation is recommended. POS: LAUREN
[2018-01-22] MEDS: Donepezil HCl 5 MG TAB PO SCH (21:26)
[2018-01-22] MEDS: Zolpidem Tartrate 5 MG TAB PO PRN (21:27)
[2018-01-22] MEDS: Atorvastatin Calcium 40 MG TAB PO SCH (21:27)
[2018-01-23] MEDS: cefTRIAXone\\ROCEPHIN 1 GM in Sodium Chloride 0.9% 100 ML IVPB SCH (03:52)
[2018-01-23 04:57] LABS: #Eosinphils 0.6 thou/uL (0.0-0.7); #Lymphocytes 2.5 thou/uL (1.20-3.40); #Neutrophils 6.6 thou/uL (1.40-6.50); %Basophils 0.4 % (0.0-1.0); %Eosinophils 5.9 % (0.0-10.0); %Lymphocytes 23.3 % (21.0-51.0); %Monocytes 9.1 % (0.0-10.0); %Neutrophils 61.3 % (42.0-75.0); Hemoglobin 9.6 g/dL (14.0-18.0); Mean Corpuscular HGB CONC 34.1 g/dL (32.0-36.0); Mean Corpuscular Hemoglobin 30.9 pg (27.0-31.0); Mean Corpuscular Volume 90.5 fl (80.0-94.0); Mean Platelet Volume 6.8 fL (7.4-10.4); Platelet Count 281 thou/uL (130-400); RBC Distribution Width 11.7 % (11.5-14.5); Red Blood Cell (RBC) Count 3.09 mill/uL (4.70-6.10); White Blood Cell (WBC) Count 10.8 thou/uL (4.8-10.8)
[2018-01-23 05:11] LABS: Vancomycin, Random 10.5 ug/mL (See Comment)
[2018-01-23 05:12] LABS: Anion Gap 13 mmol/L (10-20); BUN (Urea Nitrogen) 40 mg/dL (8.4-25.7); Calc. Creatinine Clearance 16 mL/min (70-130); Calcium 8.6 mg/dL (7.8-10.44); Carbon Dioxide 23 mmol/L (23-31); Chloride 106 mmol/L (98-107); Estimated GFR-MDRD 27; Glucose 97 mg/dL (83-110); Magnesium 1.9 mg/dL (1.6-2.6); Potassium 4.5 mmol/L (3.5-5.1); Sodium 137 mmol/L (136-145)
[2018-01-23] MEDS: Clindamycin/D5W 900 MG in Premix Bag 1 BAG IVPB SCH ×3 (05:39→22:17)
[2018-01-23] MEDS: Levothyroxine Sodium 75 MCG TAB PO SCH (05:41)
[2018-01-23] MEDS: Aspirin 81 mg Enteric Coated Tablet PO SCH (09:37)
[2018-01-23] MEDS: Amlodipine 5 MG TAB PO SCH (09:37)
[2018-01-23] MEDS: Tamsulosin HCl 0.4 MG CAP PO SCH (09:37)
[2018-01-23] MEDS: Clopidogrel Bisulfate 75 MG TAB PO SCH (09:37)
[2018-01-23] MEDS: Finasteride 5 MG TAB PO SCH (09:37)
[2018-01-23] MEDS: Saccharomyces boulardii 250 MG CAP PO SCH (09:37)
[2018-01-23] MEDS: Famotidine 20 MG TAB PO SCH (09:37)
[2018-01-23] MEDS: Heparin 5,000 UNITS/ML VIAL SC SCH ×2 (09:38→22:17)
[2018-01-23] MEDS: Gabapentin 300 MG CAP PO SCH ×3 (10:10→22:16)
[2018-01-23] MEDS ORDERED: Vancomycin HCl 1 GM in Premix Bag 1 BAG IVPB SCH ×2 (12:00→15:00)
--- NOTE | 2018-01-23 14:22 | PDOC.PN ---
- Subjective Encounter Start Date: 01/23/18 Encounter Start Time: 08:20 Pt still with pain the foot, less redness adn swelling, but some still present. Seen by Dr Menezes yesterday, picked CT, no abscess predent, some plantar lucency , ? osteo. No F/C, no N/V/d/c. all systems reviewed and neg x as above - Objective Resuscitation Status: Resuscitation Status FULL:Full Resuscitation MAR Reviewed: Yes Vital Signs & Weight: Vital Signs (12 hours) Temp Pulse Resp BP Pulse Ox 01/23/18 09:37 73 01/23/18 08:00 98 F 73 16 99 01/23/18 03:52 97.5 F L 73 16 119/59 L 94 L Weight Admit Weight 115 lb 12.8 oz Weight 115 lb 12.8 oz I&O: 01/22/18 01/23/18 01/24/18 06:59 06:59 06:59 Intake Total 400 870 Output Total 500 300 Balance -100 570 Result Diagrams: 01/23/18 04:27 01/23/18 04:27 Radiology Reviewed by me: Yes Phys Exam - Physical Examination Constitutional: NAD HEENT: PERRLA, moist MMs, sclera anicteric, oral pharynx no lesions Neck: no nodes, no JVD, supple, full ROM Respiratory: no wheezing, no rales, no rhonchi, clear to auscultation bilateral Cardiovascular: RRR, no significant murmur, no rub Gastrointestinal: soft, non-tender, no distention, positive bowel sounds Musculoskeletal: no edema Neurological: non-focal, normal sensation, moves all 4 limbs Lymphatic: no nodes Psychiatric: normal affect, A&O x 3 Skin: no rash, normal turgor, cap refill <2 seconds Dx/Plan (1) Cellulitis of right foot without toes Code(s): L03.115 - CELLULITIS OF RIGHT LOWER LIMB Status: Acute Comment: looks strepish, but possible fluid in Burs. CV surg consulted, follow up on recs. CT neg for abscess. clinda added for 72 hours for toxin inhibition, continue Vanc and CTX (2) BPH (benign prostatic hyperplasia) Code(s): N40.0 - BENIGN PROSTATIC HYPERPLASIA WITHOUT LOWER URINRY TRACT SYMP Status: Chronic Qualifiers: Lower urinary tract symptom presence: symptoms present Lower urinary tract symptom detail: incomplete bladder emptying Qualified Code(s): N40.1 - Benign prostatic hyperplasia with lower urinary tract symptoms; R39.14 - Feeling of incomplete bladder emptying; R39.14 - Feeling of incomplete bladder emptying (3) CKD (chronic kidney disease) stage 3, GFR 30-59 ml/min Code(s): N18.3 - CHRONIC KIDNEY DISEASE, STAGE 3 (MODERATE) Status: Chronic (4) Dyslipidemia Code(s): E78.5 - HYPERLIPIDEMIA, UNSPECIFIED Status: Chronic (5) HTN (hypertension) Code(s): I10 - ESSENTIAL (PRIMARY) HYPERTENSION Status: Chronic Qualifiers: Hypertension type: essential hypertension Qualified Code(s): I10 - Essential (primary) hypertension (6) Hypothyroidism Code(s): E03.9 - HYPOTHYROIDISM, UNSPECIFIED Status: Chronic Qualifiers: Hypothyroidism type: acquired Qualified Code(s): E03.9 - Hypothyroidism, unspecified (7) PVD (peripheral vascular disease) Code(s): I73.9 - PERIPHERAL VASCULAR DISEASE, UNSPECIFIED Status: Chronic (8) Protein-calorie malnutrition, moderate Code(s): E44.0 - MODERATE PROTEIN-CALORIE MALNUTRITION Status: Chronic (9) Senile dementia Code(s): F03.90 - UNSPECIFIED DEMENTIA WITHOUT BEHAVIORAL DISTURBANCE Status: Chronic Qualifiers: Dementia behavioral disturbance: without behavioral disturbance Qualified Code(s): F03.90 - Unspecified dementia without behavioral disturbance - Plan * .
[2018-01-23] MEDS: Fluticasone Propionate Nasal Spray 16 gm Bottle NASAL SCH (16:33)
[2018-01-23] MEDS: Donepezil HCl 5 MG TAB PO SCH (22:16)
[2018-01-23] MEDS: Atorvastatin Calcium 40 MG TAB PO SCH (22:16)
[2018-01-24] MEDS: cefTRIAXone\\ROCEPHIN 1 GM in Sodium Chloride 0.9% 100 ML IVPB SCH (03:33)
[2018-01-24] MEDS ORDERED: Vancomycin HCl 1 GM in Premix Bag 1 BAG IVPB SCH ×2 (04:00→16:00)
[2018-01-24] MEDS: Clindamycin/D5W 900 MG in Premix Bag 1 BAG IVPB SCH ×3 (05:38→21:47)
[2018-01-24] MEDS: Levothyroxine Sodium 75 MCG TAB PO SCH (05:40)
[2018-01-24 05:42] LABS: #Eosinphils 0.7 thou/uL (0.0-0.7); #Lymphocytes 2.5 thou/uL (1.20-3.40); #Monocytes 0.9 thou/uL (0.11-0.59); #Neutrophils 5.9 thou/uL (1.40-6.50); %Basophils 0.2 % (0.0-1.0); %Eosinophils 7.2 % (0.0-10.0); %Lymphocytes 24.9 % (21.0-51.0); %Monocytes 8.9 % (0.0-10.0); %Neutrophils 58.8 % (42.0-75.0); Mean Corpuscular HGB CONC 33.7 g/dL (32.0-36.0); Mean Corpuscular Hemoglobin 30.6 pg (27.0-31.0); Mean Corpuscular Volume 90.9 fl (80.0-94.0); Mean Platelet Volume 6.6 fL (7.4-10.4); Platelet Count 290 thou/uL (130-400); RBC Distribution Width 11.7 % (11.5-14.5); Red Blood Cell (RBC) Count 3.27 mill/uL (4.70-6.10); White Blood Cell (WBC) Count 10.1 thou/uL (4.8-10.8)
[2018-01-24 06:02] LABS: Anion Gap 14 mmol/L (10-20); BUN (Urea Nitrogen) 42 mg/dL (8.4-25.7); Calc. Creatinine Clearance 15 mL/min (70-130); Calcium 8.6 mg/dL (7.8-10.44); Carbon Dioxide 22 mmol/L (23-31); Chloride 106 mmol/L (98-107); Estimated GFR-MDRD 23; Glucose 90 mg/dL (83-110); Magnesium 2.1 mg/dL (1.6-2.6); Potassium 4.1 mmol/L (3.5-5.1); Sodium 138 mmol/L (136-145)
[2018-01-24] MEDS: Famotidine 20 MG TAB PO SCH (08:50)
[2018-01-24] MEDS: Saccharomyces boulardii 250 MG CAP PO SCH (08:50)
[2018-01-24] MEDS: Amlodipine 5 MG TAB PO SCH (08:50)
[2018-01-24] MEDS: Gabapentin 300 MG CAP PO SCH ×3 (08:50→21:47)
[2018-01-24] MEDS: Heparin 5,000 UNITS/ML VIAL SC SCH ×2 (08:50→21:48)
[2018-01-24] MEDS: Aspirin 81 mg Enteric Coated Tablet PO SCH (08:51)
[2018-01-24] MEDS: Tamsulosin HCl 0.4 MG CAP PO SCH (08:51)
[2018-01-24] MEDS: Clopidogrel Bisulfate 75 MG TAB PO SCH (08:51)
[2018-01-24] MEDS: Finasteride 5 MG TAB PO SCH (08:51)
--- NOTE | 2018-01-24 11:55 | PDOC.PN ---
- Subjective Encounter Start Date: 01/24/18 Encounter Start Time: 10:40 Follow upf or cellulitis of the foor, nonhealing surgicl wound Wound care saw, dressing placedm today, dressing removed, wound moist and clean. no F/c, no N/V/D/C, no CP or SOB, only complaint is pain to the foot, stable all systems reviewed adn neg x as above - Objective Resuscitation Status: Resuscitation Status FULL:Full Resuscitation MAR Reviewed: Yes Vital Signs & Weight: Vital Signs (12 hours) Temp Pulse Resp BP Pulse Ox 01/24/18 08:50 72 01/24/18 08:00 98.3 F 72 18 95 01/24/18 07:58 98.3 F 69 18 111/57 L 95 01/24/18 01:40 97 Weight Admit Weight 115 lb 12.8 oz Weight 115 lb 12.8 oz I&O: 01/23/18 01/24/18 01/25/18 06:59 06:59 06:59 Intake Total 870 480 Output Total 300 250 Balance 570 230 Result Diagrams: 01/24/18 05:30 01/24/18 05:30 Phys Exam - Physical Examination Constitutional: NAD HEENT: PERRLA, moist MMs, sclera anicteric, oral pharynx no lesions Neck: no nodes, no JVD, supple, full ROM Respiratory: no wheezing, no rales, no rhonchi, clear to auscultation bilateral Cardiovascular: RRR, no significant murmur Gastrointestinal: soft, non-tender, no distention, positive bowel sounds Musculoskeletal: no edema, pulses present Neurological: non-focal, normal sensation, moves all 4 limbs Lymphatic: no nodes Psychiatric: normal affect, A&O x 3 Skin: no rash, normal turgor, cap refill <2 seconds Dx/Plan (1) Cellulitis of right foot without toes Code(s): L03.115 - CELLULITIS OF RIGHT LOWER LIMB Status: Acute Comment: looks strepish, but possible fluid in Bursa, less swollen today. CV surg consulted, follow up on recs. CT neg for abscess. clinda added for 72 hours for toxin inhibition, continue Vanc and CTX (2) BPH (benign prostatic hyperplasia) Code(s): N40.0 - BENIGN PROSTATIC HYPERPLASIA WITHOUT LOWER URINRY TRACT SYMP Status: Chronic Qualifiers: Lower urinary tract symptom presence: symptoms present Lower urinary tract symptom detail: incomplete bladder emptying Qualified Code(s): N40.1 - Benign prostatic hyperplasia with lower urinary tract symptoms; R39.14 - Feeling of incomplete bladder emptying; R39.14 - Feeling of incomplete bladder emptying (3) CKD (chronic kidney disease) stage 3, GFR 30-59 ml/min Code(s): N18.3 - CHRONIC KIDNEY DISEASE, STAGE 3 (MODERATE) Status: Chronic (4) Dyslipidemia Code(s): E78.5 - HYPERLIPIDEMIA, UNSPECIFIED Status: Chronic (5) HTN (hypertension) Code(s): I10 - ESSENTIAL (PRIMARY) HYPERTENSION Status: Chronic Qualifiers: Hypertension type: essential hypertension Qualified Code(s): I10 - Essential (primary) hypertension (6) Hypothyroidism Code(s): E03.9 - HYPOTHYROIDISM, UNSPECIFIED Status: Chronic Qualifiers: Hypothyroidism type: acquired Qualified Code(s): E03.9 - Hypothyroidism, unspecified (7) PVD (peripheral vascular disease) Code(s): I73.9 - PERIPHERAL VASCULAR DISEASE, UNSPECIFIED Status: Chronic (8) Protein-calorie malnutrition, moderate Code(s): E44.0 - MODERATE PROTEIN-CALORIE MALNUTRITION Status: Chronic (9) Senile dementia Code(s): F03.90 - UNSPECIFIED DEMENTIA WITHOUT BEHAVIORAL DISTURBANCE Status: Chronic Qualifiers: Dementia behavioral disturbance: without behavioral disturbance Qualified Code(s): F03.90 - Unspecified dementia without behavioral disturbance - Plan * .
[2018-01-24] MEDS: Fluticasone Propionate Nasal Spray 16 gm Bottle NASAL SCH (13:19)
[2018-01-24 14:41] LABS: Vancomycin, Random 16.1 ug/mL (See Comment)
[2018-01-24] MEDS: Donepezil HCl 5 MG TAB PO SCH (21:46)
[2018-01-24] MEDS: Atorvastatin Calcium 40 MG TAB PO SCH (21:47)
[2018-01-24] MEDS: Zolpidem Tartrate 5 MG TAB PO PRN (21:47)
[2018-01-25] MEDS: cefTRIAXone\\ROCEPHIN 1 GM in Sodium Chloride 0.9% 100 ML IVPB SCH (03:53)
[2018-01-25] MEDS: Levothyroxine Sodium 75 MCG TAB PO SCH (05:15)
[2018-01-25] MEDS: Clindamycin/D5W 900 MG in Premix Bag 1 BAG IVPB SCH (05:15)
[2018-01-25 05:17] LABS: #Monocytes 0.7 thou/uL (0.11-0.59); #Neutrophils 5.2 thou/uL (1.40-6.50); %Basophils 0.5 % (0.0-1.0); %Eosinophils 11.4 % (0.0-10.0); %Monocytes 7.6 % (0.0-10.0); %Neutrophils 58.5 % (42.0-75.0); Hemoglobin 9.4 g/dL (14.0-18.0); Mean Corpuscular HGB CONC 33.2 g/dL (32.0-36.0); Mean Corpuscular Hemoglobin 29.8 pg (27.0-31.0); Mean Corpuscular Volume 89.9 fl (80.0-94.0); Mean Platelet Volume 6.6 fL (7.4-10.4); Platelet Count 295 thou/uL (130-400); RBC Distribution Width 11.6 % (11.5-14.5); Red Blood Cell (RBC) Count 3.14 mill/uL (4.70-6.10); White Blood Cell (WBC) Count 8.9 thou/uL (4.8-10.8)
[2018-01-25 05:34] LABS: Anion Gap 13 mmol/L (10-20); BUN (Urea Nitrogen) 44 mg/dL (8.4-25.7); Calc. Creatinine Clearance 15 mL/min (70-130); Calcium 8.3 mg/dL (7.8-10.44); Carbon Dioxide 21 mmol/L (23-31); Chloride 106 mmol/L (98-107); Estimated GFR-MDRD 25; Glucose 123 mg/dL (83-110); Magnesium 2.1 mg/dL (1.6-2.6); Potassium 4.1 mmol/L (3.5-5.1); Sodium 136 mmol/L (136-145)
[2018-01-25] MEDS: Famotidine 20 MG TAB PO SCH (08:44)
[2018-01-25] MEDS: Clopidogrel Bisulfate 75 MG TAB PO SCH (08:45)
[2018-01-25] MEDS: Amlodipine 5 MG TAB PO SCH (08:45)
[2018-01-25] MEDS: Aspirin 81 mg Enteric Coated Tablet PO SCH (08:45)
[2018-01-25] MEDS: Tamsulosin HCl 0.4 MG CAP PO SCH (08:45)
[2018-01-25] MEDS: Finasteride 5 MG TAB PO SCH (08:45)
[2018-01-25] MEDS: Saccharomyces boulardii 250 MG CAP PO SCH (08:45)
[2018-01-25] MEDS: Gabapentin 300 MG CAP PO SCH (08:45)
[2018-01-25] MEDS: Heparin 5,000 UNITS/ML VIAL SC SCH (08:46)
[2018-01-25] MEDS: Fluticasone Propionate Nasal Spray 16 gm Bottle NASAL SCH (08:46)
[2018-01-25 09:11] VITALS: BP 147/68; TEMP 97.4
--- NOTE | 2018-01-25 14:27 | DIS ---
DATE OF DISCHARGE: 01/25/2018 DISCHARGE DISPOSITION: Home with home health care. FOLLOWUP: With primary care physician, Dr. Gladys Zhang. ALLERGIES: The patient is allergic to MORPHINE, HYDROCODONE, CODEINE, TRAMADOL. DISCHARGE MEDICATIONS: 1. Keflex 250 mg 3 times a day for next 1 week. 2. Doxycycline 100 mg twice a day for next one week. 3. Florastor 250 mg daily. 4. All other home medications were resumed. The patient was seen and examined on the day of discharge. Denies any new complaints. No chest pain , shortness of breath, or palpitations. SIGNIFICANT LABORATORY DATA: 1. BUN 44 with creatinine 2.49 on the day of discharge. Vancomycin level yesterday was 16.1. CBC s howed WBC 10.8 with hemoglobin 11.7. 2. Blood cultures have been negative. 3. X-ray of the right foot showed soft tissue swelling. 4. CT scan of the right lower extremity showed generalized bony demineralization without any clear e vidence of osteomyelitis. There was a lucency extending transversely across amputated base of the fi rst metatarsal. INPATIENT CONSULTANTS: Cardiovascular Surgery, Dr. Menezes. BRIEF HOSPITAL COURSE: The patient is an 87-year-old male with peripheral vascular disease, status p ost right metatarsal amputation in August of this year, presented to the emergency room with right f oot swelling. His workup was consistent with the right lower extremity cellulitis. He was started o n broad spectrum antibiotics. The patient was seen by Cardiovascular Surgery, Dr. Menezes, who agreed with wound care. A CT scan of the right lower extremity was also done. He received IV antibiotics f or last 3-4 days during this hospital stay. His wound has improved. He will follow up with Dr. Mac florian for wound follow up on Saturday. Home health care will also be arranged. He appears stable for tolu ronquillo. FINAL DIAGNOSES: 1. Cellulitis of the right foot. 2. Benign prostatic hypertrophy. 3. Chronic kidney disease stage 3. 4. Dyslipidemia. 5. Hypertension. 6. Peripheral vascular disease. 7. Moderate protein calorie malnutrition. 8. Senile dementia. 9. Hypothyroidism. 10. Delirium last night, resolved. 11. Chronic anemia. Plan of care was discussed with the patient and the family at the bedside. They stated understanding .
== END 2018-01-25 12:37 | disposition home health service (06) | DRG 603 ==
LOC: ERS 17:29 → 2SW 20:35 → OBSVTOIN 01-22 00:37 → ONC 01-22 10:17
PROVIDERS: ADMIT Internal Medicine; ATTEND Internal Medicine
DX: L03.115 Cellulitis of right lower limb (principal); E44.0 Moderate protein-calorie malnutrition; I25.10 Atherosclerotic heart disease of native coronary artery without angina pectoris; I73.9 Peripheral vascular disease, unspecified; F03.90 Unspecified dementia, unspecified severity, without behavioral disturbance, psychotic disturbance, mood disturbance, and anxiety; I12.9 Hypertensive chronic kidney disease with stage 1 through stage 4 chronic kidney disease, or unspecified chronic kidney disease; N18.3 Chronic kidney disease, stage 3 (moderate); E78.5 Hyperlipidemia, unspecified; E03.9 Hypothyroidism, unspecified; D63.1 Anemia in chronic kidney disease; R41.0 Disorientation, unspecified; N40.1 Benign prostatic hyperplasia with lower urinary tract symptoms; R39.14 Feeling of incomplete bladder emptying; B96.89 Other specified bacterial agents as the cause of diseases classified elsewhere; Z89.421 Acquired absence of other right toe(s); Z79.02 Long term (current) use of antithrombotics/antiplatelets; Z79.82 Long term (current) use of aspirin; Z79.899 Other long term (current) drug therapy; Z87.891 Personal history of nicotine dependence
CPT/HCPCS: 36415; 80048; 80053; 80202; 81001; 83605; 83735; 85025; 85652; 86140; 87040; 87149; 96365; A4216; J0696; J1644; J3010; J3370; J3490; J7050

== ENCOUNTER 2018-09-19 12:39 | Inpatient (IN) | payer MEDICARE, MEDICAID ==
[2018-09-19 13:34] LABS: #Basophils 0.1 thou/uL (0.0-0.2); #Eosinphils 2.2 thou/uL (0.0-0.7); #Lymphocytes 3.6 thou/uL (1.20-3.40); #Monocytes 0.8 thou/uL (0.11-0.59); #Neutrophils 2.8 thou/uL (1.40-6.50); %Basophils 1.1 % (0.0-1.0); %Eosinophils 23.7 % (0.0-10.0); %Lymphocytes 37.7 % (21.0-51.0); %Monocytes 8.2 % (0.0-10.0); %Neutrophils 29.4 % (42.0-75.0); Hemoglobin 14.9 g/dL (14.0-18.0); Mean Corpuscular HGB CONC 32.8 g/dL (32.0-36.0); Mean Corpuscular Hemoglobin 30.1 pg (27.0-31.0); Mean Corpuscular Volume 91.9 fL (78.0-98.0); Mean Platelet Volume 7.9 fL (7.4-10.4); Platelet Count 240 thou/uL (130-400); RBC Distribution Width 12.5 % (11.5-14.5); Red Blood Cell (RBC) Count 4.95 mill/uL (4.70-6.10); White Blood Cell (WBC) Count 9.5 thou/uL (4.8-10.8)
[2018-09-19 13:58] LABS: ALT (SGPT) 19 U/L (8-55); AST (SGOT) 31 U/L (5-34); Alkaline Phosphatase 96 U/L (40-150); Anion Gap 16 mmol/L (10-20); BUN (Urea Nitrogen) 59 mg/dL (8.4-25.7); Bilirubin, Total 0.5 mg/dL (0.2-1.2); Calc. Creatinine Clearance 0 mL/min (70-130); Calcium 9.4 mg/dL (7.8-10.44); Carbon Dioxide 20 mmol/L (23-31); Chloride 104 mmol/L (98-107); Estimated GFR-MDRD 19; Globulin 3.7 g/dL (2.4-3.5); Glucose 115 mg/dL (83-110); Lipase 27 U/L (8-78); Potassium 3.4 mmol/L (3.5-5.1); Protein, Total 7.7 g/dL (5.8-8.1); Sodium 137 mmol/L (136-145)
[2018-09-19 14:20] LABS: Bilirubin Negative (Negative); Blood, Urine Negative (Negative); Clarity CLEAR (Clear); Glucose, Urine (Dipstick) Negative (Negative); Leukocyte Negative (Negative); Nitrite Negative (Negative); Protein, Urine (Dipstick) Negative (Neg-Trace); Specific Gravity, Urine 1.013 (1.002-1.036); Urobilinogen 0.2 mg/dL (0.2-1.0)
[2018-09-19] MEDS ORDERED: Calcium Carbonate 500 MG ChewTAB PO PRN (14:52)
[2018-09-19] MEDS ORDERED: Ondansetron PF 4 MG/2 ML Vial IVP PRN ×2 (14:52)
[2018-09-19] MEDS ORDERED: Acetaminophen 325 MG TAB PO PRN (14:52)
[2018-09-19] MEDS ORDERED: Nitroglycerin 0.4 MG TAB (25 Tab Bottle) SL PRN (14:52)
[2018-09-19] MEDS ORDERED: hydrALAZINE 20 MG/ML VIAL SLOW IVP PRN (14:52)
[2018-09-19] MEDS ORDERED: Sodium Chloride 0.65% Nasal 44 ML BOT EA NARE PRN (14:52)
[2018-09-19] MEDS ORDERED: Benzonatate 100 MG CAP PO PRN (14:52)
--- NOTE | 2018-09-19 15:14 | RAD ---
PORTABLE CHEST 1 VIEW: Date: 09/19/18 Time: 1426 hours HISTORY: Low grade fever, nausea, and vomiting. FINDINGS: Comparison made with exam of 07/13/17. The heart size is normal. There is scarring at the left lateral lung base. No focal areas of consolid ation, pneumothoraces, or pleural effusions are seen. Asymmetric calcification in the left lung apex is again seen. IMPRESSION: No acute process. POS: [facility]
[2018-09-19] MEDS ORDERED: Saccharomyces boulardii 250 MG CAP PO SCH (15:45)
--- NOTE | 2018-09-19 16:37 | HP ---
PRIMARY CARE PHYSICIAN: Dr. Bhandari. CHIEF COMPLAINT: Unrelenting diarrhea. HISTORY OF PRESENTING ILLNESS: Mr. 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 History is mainly obtained from his present in the room with interpretation. Case is discussed with admitting ER physician. Mr. Torres has been having 3 days of diarrhea as much as 10 times a day. He had sick contacts at home in the form of his grandson and [id number] who had been having gastrointestinal illness with abdominal pain, vomiting, and fever. Mr. Torres had low-grade fever yesterday. He has not been having any abdominal pain. No nausea, no vomiting. He has poor appetite. No blood noticed in the stools. His oral intake has gone down. He has had 3 loose BMs since this morning as well. The patient denies any recent antibiotic use. Upon presentation to the ER, he was hemodynamically stable with a blood pressure 116/77, pulse of 75, respirations 16, temperature 98.1, saturating 96% on room air. His workup revealed evidence of dehydration with renal function reduced to a GFR at 19. Creatinine is bumped to 3.08, where his baseline creatinine is around 2.5. He has recently started to see a staff toxicologist, Dr. Knowles. Urinalysis today is unremarkable. His CBC shows normal WBCs with differential is normal. He is being admitted under observation status for dehydration leading to acute renal insufficiency on chronic kidney disease. PAST MEDICAL HISTORY: 1. Peripheral arterial disease. 2. Coronary artery disease. 3. Chronic kidney disease, stage 4. 4. BPH. 5. Hypothyroidism. 6. Senile dementia. 7. Dyslipidemia. 8. Hypertension. PAST SURGICAL HISTORY: 1. Cataract surgery. 2. Inguinal hernia repair. 3. Cholecystectomy. 4. 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 PSYCHIATRIC HISTORY: Reviewed and negative. ALLERGIES: HYDROCODONE, MORPHINE, AND TRAMADOL. SOCIAL HISTORY: He is a former smoker. He lives at home with family. He ambulates with the help of a cane. No history of drug or tobacco abuse. FAMILY HISTORY: Significant for multiple family members with hypertension, coronary artery disease. CODE STATUS: Full resuscitation as discussed with the patient and his . HOME MEDICATIONS: As listed, 1. Amlodipine 5 mg daily. 2. Aspirin 81 mg daily. 3. Plavix 75 mg daily. 4. Donepezil 5 mg at bedtime. 5. Isosorbide mononitrate 60 mg daily. 6. Atorvastatin 40 mg daily. 7. Finasteride 5 mg daily. 8. Tamsulosin 0.4 mg daily. 9. Levothyroxine 75 mcg daily. 10. Gabapentin 300 mg t.i.d. 11. Santyl ointment topically. REVIEW OF SYSTEMS: A 12-point review of system is done and is negative except for those mentioned in the history and physical. LABORATORY DATA: CBC shows WBCs 9.5, neutrophils low at 29%, eosinophils high at 23%, hemoglobin 14.9, and platelet count of 240. Serum chemistry showed potassium of 3.4, bicarb 20, BUN 59, creatinine 3.05, blood sugar 115. Troponin 0.012. Urinalysis unremarkable. Chest x-ray by my review has no evidence to suggest pleural effusion, edema, or infiltrate. PHYSICAL EXAMINATION: VITAL SIGNS: Most recent vital signs; blood pressure 123/68, pulse of 60, respirations 16, temperature 97.7, saturating 97% on room air. GENERAL: No acute distress. Lying comfortably in bed. HEENT: Mucous membrane is slightly dry. No oropharyngeal exudate or erythema. Head is normocephalic and atraumatic. Pupils are equal and reactive to light and accommodation. Extraocular movements are intact. NECK: Supple without any lymphadenopathy, JVD, or bruit. CHEST: Clear to auscultation without any wheezing, rales, or rhonchi. Rate and rhythm are regular without any murmurs, rubs, or gallops. ABDOMEN: Soft, nontender, nondistended with positive bowel sounds. EXTREMITIES: Free of any cyanosis, clubbing, or edema. NEUROLOGICAL: Examination is nonfocal. Skin is free of any rashes or bruises. Feels warm and dry to touch. PSYCHIATRIC: Normal affect. IMPRESSION AND PLAN: 1. Acute kidney injury on top of chronic kidney disease, stage 4, most likely secondary to dehydration from severe diarrhea. The patient will be admitted to the hospital for IV fluid resuscitation and observation status. We will send his stool for studies and consult his staff toxicologist, Dr. Eliseo Knowles. Avoid any nephrotoxic agents and recheck renal function in the morning. He does not seem to have any evidence of urinary tract infection or obstruction. Urine output is adequate as per the family. 2. Acute gastroenteritis. We will send the stool for Clostridium difficile over parasite and culture and WBC testing. Most likely viral gastroenteritis as the patient's abdominal examination shows benign abdomen. No recent antibiotic use either. If his stool studies are negative, we will treat empirically with antimotility agents. IV fluids as above. We will start him on full liquid diet with advance as tolerated. The patient did have recent sick contacts. 3. History of peripheral arterial disease. Resume home medications of aspirin and Plavix. 4. History of coronary artery disease. Restart home medication with aspirin, Plavix, isosorbide, atorvastatin. 5. Hypothyroidism. Restart levothyroxine. 6. Hypertension, currently well controlled. We will use his antihypertensives judiciously as he is prone to be hypotensive. 7. History of senile dementia. Continue donepezil for now. 8. Dyslipidemia. Continue atorvastatin. 9. History of benign prostatic hyperplasia. Continue tamsulosin and finasteride. 10. Deep venous thrombosis and gastrointestinal prophylaxis and p.r.n. medications. 11. Code status: Full code, discussed with the patient. DISPOSITION: Mr. Torres is currently being admitted under observation status for acute renal insufficiency and dehydration. Estimated length of stay at this time is less than 2 midnights. Further management will depend upon his clinical course. Job ID: [id number]
[2018-09-19 16:40] VITALS: BMI 21.3
--- NOTE | 2018-09-19 16:50 | CON ---
DATE OF CONSULTATION: 09/19/2018 NEPHROLOGY CONSULTATION REASON FOR CONSULTATION: Elevated creatinine. HISTORY OF PRESENT ILLNESS: This is a very pleasant 88-year-old gentleman, presented to the hospital with nausea, vomiting, and poor appetite. The patient's baseline creatinine has increased from 2.4 to 3.0. The patient denies headache, numbness, tingling, or weakness. PAST MEDICAL HISTORY: Hypertension, coronary artery disease, peripheral vascular disease, dementia, hernia surgery, and cholecystectomy. SOCIAL HISTORY: No tobacco, alcohol, or drug use. FAMILY HISTORY: Negative for ESRD. ALLERGIES: REVIEWED. HOME MEDICATIONS: Reviewed. REVIEW OF SYSTEMS: A 12-point review of systems was performed and was negative except for positives noted above. GENERAL: HEAD: NECK: No swelling or lumps. NOSE: No epistaxis or discharge. EYES: No diplopia or pain. RESPIRATORY: CARDIOVASCULAR: GASTROINTESTINAL: /ZINC PLATE CUTTER: MUSCULOSKELETAL: No joint pain. NEUROPSYCHIATIC SYSTEMS: No suicidal ideation. No ideation. SKIN: Denies any rash or ulcer. CONSTITUTIONAL: No fever or chill. PHYSICAL EXAMINATION: GENERAL: The patient is awake and alert. VITAL SIGNS: Afebrile, pulse 75, breathing 16, and blood pressure 130/70. GENERAL APPEARANCE AND MENTAL STATUS: Fair. HEAD/NECK: Normocephalic. Atraumatic. EYES: EOMI. No deformity. EARS: Clear. No ulcers. NOSE: Intact. No lesions. MOUTH: Clear. No discharge. THROAT: Clear. No exudate. LUNGS: Clear. No crackles. CARDIAC: S1, S2. No rub. ABDOMEN: Benign. Bowel sounds positive. GENITALIA/RECTUM: [place] absent. BACK/EXTREMITIES: Edema 0+. NEUROLOGICAL: Alert and motor intact. SKIN: LYMPHATICS: LABORATORY DATA: Labs show creatinine 3, potassium 3.4, and bicarb 20. ASSESSMENT AND PLAN: 1. Acute kidney injury, chronic kidney disease, most likely decreased effective arterial blood volume. Continue gentle hydration. 2. Hypertension, stable. 3. Anemia, stable. 4. Metabolic acidosis. Continue bicarbonate by mouth. No indication for dialysis. Job ID: [id number]
[2018-09-19] MEDS: Sodium Chloride 0.9% 1,000 ML IV SCH ×2 (17:49)
[2018-09-19] MEDS: Heparin 5,000 UNITS/ML VIAL SC SCH (20:35)
[2018-09-19] MEDS: Gabapentin 300 MG CAP PO SCH (20:36)
[2018-09-19] MEDS: Donepezil HCl 5 MG TAB PO SCH (20:36)
[2018-09-19] MEDS: Atorvastatin Calcium 40 MG TAB PO SCH (20:36)
[2018-09-20 05:17] LABS: #Eosinphils 2.1 thou/uL (0.0-0.7); #Monocytes 0.8 thou/uL (0.11-0.59); #Neutrophils 3.8 thou/uL (1.40-6.50); %Basophils 0.4 % (0.0-1.0); %Eosinophils 21.8 % (0.0-10.0); %Lymphocytes 30.6 % (21.0-51.0); %Monocytes 7.9 % (0.0-10.0); %Neutrophils 39.2 % (42.0-75.0); Hemoglobin 12.7 g/dL (14.0-18.0); Mean Corpuscular HGB CONC 33.6 g/dL (32.0-36.0); Mean Corpuscular Hemoglobin 30.5 pg (27.0-31.0); Mean Corpuscular Volume 90.8 fL (78.0-98.0); Mean Platelet Volume 7.8 fL (7.4-10.4); Platelet Count 221 thou/uL (130-400); RBC Distribution Width 12.5 % (11.5-14.5); Red Blood Cell (RBC) Count 4.17 mill/uL (4.70-6.10); White Blood Cell (WBC) Count 9.7 thou/uL (4.8-10.8)
[2018-09-20 05:32] LABS: Anion Gap 12 mmol/L (10-20); BUN (Urea Nitrogen) 56 mg/dL (8.4-25.7); Calc. Creatinine Clearance 14 mL/min (70-130); Calcium 8.4 mg/dL (7.8-10.44); Carbon Dioxide 20 mmol/L (23-31); Chloride 111 mmol/L (98-107); Estimated GFR-MDRD 21; Glucose 100 mg/dL (83-110); Potassium 3.1 mmol/L (3.5-5.1); Sodium 140 mmol/L (136-145)
[2018-09-20] MEDS: Levothyroxine Sodium 75 MCG TAB PO SCH (05:33)
[2018-09-20] MEDS: Sodium Chloride 0.9% 1,000 ML IV SCH ×2 (06:37→18:36)
[2018-09-20] MEDS: Amlodipine 5 MG TAB PO SCH (08:48)
[2018-09-20] MEDS: Clopidogrel Bisulfate 75 MG TAB PO SCH (08:49)
[2018-09-20] MEDS: Aspirin 81 mg Enteric Coated Tablet PO SCH (08:49)
[2018-09-20] MEDS: Gabapentin 300 MG CAP PO SCH ×3 (08:50→21:45)
[2018-09-20] MEDS: Finasteride 5 MG TAB PO SCH (08:50)
[2018-09-20] MEDS: Tamsulosin HCl 0.4 MG CAP PO SCH (08:50)
[2018-09-20] MEDS: Saccharomyces boulardii 250 MG CAP PO SCH (08:50)
[2018-09-20] MEDS: Heparin 5,000 UNITS/ML VIAL SC SCH ×2 (08:50→21:44)
[2018-09-20] MEDS ORDERED: Vancomycin HCl 25 MG/ML Oral PO SCH (10:35)
--- NOTE | 2018-09-20 12:04 | PDOC.PN ---
- Subjective Encounter Start Date: 09/20/18 Encounter Start Time: 11:58 Subjective: feels only marginally better. vomited last night -: poor PO intake and persistant diarrhea - Objective Resuscitation Status - Order Detail: 09/19/18 15:16 Resuscitation Status Routine Resuscitation Status: FULL: Full Resuscitation Discussed with: discussed w pt and at bedside MAR Reviewed: Yes Vital Signs & Weight: Vital Signs (12 hours) Temp Pulse Pulse Resp BP BP BP 09/20/18 09:00 34 L 121/57 L 09/20/18 08:48 68 130/59 L 09/20/18 07:15 97.7 F 68 15 130/59 L 09/20/18 04:02 68 18 123/63 Pulse Ox Pulse Ox 09/20/18 09:00 97 09/20/18 08:48 09/20/18 07:15 98 09/20/18 04:02 96 Weight Weight 124 lb 6.4 oz I&O: 09/19/18 09/20/18 09/21/18 06:59 06:59 06:59 Intake Total 1000 240 Balance 1000 240 Result Diagrams: 09/20/18 04:55 09/20/18 04:55 Additional Labs: Microbiology 09/20/18 00:29 Stool Stool Lactoferrin - Final 09/20/18 00:29 Stool Shiga Toxin Test - Final 09/20/18 00:29 Stool C. difficile GDH Antigen & Toxins - Final 09/20/18 00:29 Stool Clostridium difficile Toxin A&B PCR - Final Phys Exam - Physical Examination Constitutional: NAD weak and tired looking HEENT: PERRLA, moist MMs, sclera anicteric, oral pharynx no lesions Neck: no nodes, no JVD, supple, full ROM Respiratory: no wheezing, no rales, no rhonchi, clear to auscultation bilateral Cardiovascular: RRR, no significant murmur, no rub Gastrointestinal: soft, non-tender, no distention, positive bowel sounds Musculoskeletal: no edema, pulses present Neurological: non-focal, normal sensation, moves all 4 limbs Psychiatric: normal affect, A&O x 3 Skin: no rash Dx/Plan (1) C. difficile diarrhea Code(s): A04.72 - ENTEROCOLITIS D/T CLOSTRIDIUM DIFFICILE, NOT SPCF RECUR Status: Acute (2) Acute kidney injury superimposed on CKD Code(s): N17.9 - ACUTE KIDNEY FAILURE, UNSPECIFIED; N18.9 - CHRONIC KIDNEY DISEASE, UNSPECIFIED Status: Acute (3) Dehydration Code(s): E86.0 - DEHYDRATION Status: Acute (4) CKD (chronic kidney disease) stage 4, GFR 15-29 ml/min Code(s): N18.4 - CHRONIC KIDNEY DISEASE, STAGE 4 (SEVERE) Status: Chronic (5) BPH (benign prostatic hyperplasia) Code(s): N40.0 - BENIGN PROSTATIC HYPERPLASIA WITHOUT LOWER URINRY TRACT SYMP Status: Chronic Qualifiers: Lower urinary tract symptom presence: symptoms present Lower urinary tract symptom detail: incomplete bladder emptying Qualified Code(s): N40.1 - Benign prostatic hyperplasia with lower urinary tract symptoms; R39.14 - Feeling of incomplete bladder emptying; R39.14 - Feeling of incomplete bladder emptying (6) CAD (coronary artery disease) Code(s): I25.10 - ATHSCL HEART DISEASE OF [place] CORONARY ARTERY W/O ANG PCTRS Status: Chronic (7) Chronic systolic heart failure Code(s): I50.22 - CHRONIC SYSTOLIC (CONGESTIVE) HEART FAILURE Status: Chronic (8) Dyslipidemia Code(s): E78.5 - HYPERLIPIDEMIA, UNSPECIFIED Status: Chronic (9) Hypothyroidism Code(s): E03.9 - HYPOTHYROIDISM, UNSPECIFIED Status: Chronic (10) PVD (peripheral vascular disease) Code(s): I73.9 - PERIPHERAL VASCULAR DISEASE, UNSPECIFIED Status: Chronic (11) Senile dementia Code(s): F03.90 - UNSPECIFIED DEMENTIA WITHOUT BEHAVIORAL DISTURBANCE Status: Chronic Qualifiers: Dementia behavioral disturbance: without behavioral disturbance Qualified Code(s): F03.90 - Unspecified dementia without behavioral disturbance - Plan plan discussed w/ family, continue antibiotics, PT/OT, out of bed/ambulate, DVT proph w/SCDs start PO vancomycin for C diff. -: cont IVF.not able to tolerate PO and needs more IVF -: renal Fx slightly better.monitor -: am labs -: will change to Inpt * . Review of Systems - Review of Systems Constitutional: weakness, malaise. negative: fever, chills, sweats, other Respiratory: negative: Cough, Dry, Shortness of Breath, Hemoptysis, SOB with Excertion, Pleuritic Pain, Sputum, Wheezing Cardiovascular: negative: chest pain, palpitations, orthopnea, paroxysmal nocturnal dyspnea, edema, light headedness, other Gastrointestinal: Nausea, Vomiting, Diarrhea. negative: Abdominal Pain, Constipation, Melena, Hematochezia, Other Genitourinary: negative: Dysuria, Frequency, Incontinence, Hematuria, Retention , Other Musculoskeletal: negative: Neck Pain, Shoulder Pain, Arm Pain, Back Pain, Hand Pain, Leg Pain, Foot Pain, Other Neurological: negative: Weakness, Numbness, Incoordination, Change in Speech, Confusion, Seizures, Other - Medications/Allergies Allergies/Adverse Reactions: Allergies Allergy/AdvReac Type Severity Reaction Status Date / Time hydrocodone Allergy Intermediate Anxiety Verified 01/22/18 00:26 morphine Allergy Intermediate Short of Verified 01/22/18 00:26 Breath codeine Allergy Verified 01/22/18 00:27 tramadol Allergy Verified 01/22/18 00:26 Medications: Current Medications Acetaminophen (Tylenol) 650 mg PO Q4H PRN PRN Reason: Headache/Fever/Mild Pain (1-3) Amlodipine Besylate (Norvasc) 5 mg PO DAILY [facility] Last Admin: 09/20/18 08:48 Dose: 5 mg Aspirin (Ecotrin) 81 mg PO DAILY [facility] Last Admin: 09/20/18 08:49 Dose: 81 mg Atorvastatin Calcium (Lipitor) 40 mg PO HS [facility] Last Admin: 09/19/18 20:36 Dose: 40 mg Benzonatate (Tessalon) 100 mg PO Q6H PRN PRN Reason: Cough Calcium Carbonate (Tums) 1,000 mg PO Q4H PRN PRN Reason: Heartburn or Indigestion Clopidogrel Bisulfate (Plavix) 75 mg PO DAILY [facility] Last Admin: 09/20/18 08:49 Dose: 75 mg Donepezil HCl (Aricept) 5 mg PO HS [facility] Last Admin: 09/19/18 20:36 Dose: 5 mg Finasteride (Proscar) 5 mg PO DAILY [facility] Last Admin: 09/20/18 08:50 Dose: 5 mg Gabapentin (Neurontin) 300 mg PO TID [facility] Last Admin: 09/20/18 08:50 Dose: 300 mg Heparin Sodium (Porcine) (Heparin) 5,000 units SC BID [facility] Last Admin: 09/20/18 08:50 Dose: 5,000 units Hydralazine HCl (Apresoline) 10 mg SLOW IVP Q4H PRN PRN Reason: SBP > 180 and HR < 70 Sodium Chloride (Normal Saline 0.9%) 1,000 mls @ 75 mls/hr IV .[id number] [facility] Last Admin: 09/20/18 06:37 Dose: 1,000 mls Levothyroxine Sodium (Synthroid) 75 mcg PO 0600 [facility] Last Admin: 09/20/18 05:33 Dose: 75 mcg Nitroglycerin (Nitrostat) 0.4 mg SL Q5MIN PRN PRN Reason: Chest Pain Ondansetron HCl (Zofran) 4 mg IVP Q6H PRN PRN Reason: Nausea/Vomiting Saccharomyces Boulardii (Florastor) 250 mg PO DAILY [facility] Last Admin: 09/20/18 08:50 Dose: 250 mg Sodium Chloride ([place] Nasal [place] 0.65%) 0 ml EA NARE QIDPRN PRN PRN Reason: Nasal Congestion Sodium Chloride (Flush - Normal Saline) 10 ml IVF Q12HR [facility] Sodium Chloride (Flush - Normal Saline) 10 ml IVF PRN PRN PRN Reason: Saline Flush Tamsulosin HCl (Flomax) 0.4 mg PO DAILY [facility] Last Admin: 09/20/18 08:50 Dose: 0.4 mg Vancomycin HCl (First Vancomycin) 125 mg PO QID [facility]
--- NOTE | 2018-09-20 12:43 | PRG ---
DATE OF SERVICE: 09/20/2018 SUBJECTIVE: An 88-year-old gentleman being seen for acute kidney injury. The patient denied any nausea, vomiting, or chest pain. OBJECTIVE: CONSTITUTIONAL: On examination, the patient is awake and alert. VITAL SIGNS: Afebrile, pulse 72, breathing 16, and blood pressure 118/65. GENERAL APPEARANCE AND MENTAL STATUS: Fair. HEAD/NECK: Normocephalic. Atraumatic. EYES: EOMI. No deformity. EARS: Clear. No ulcers. NOSE: Intact. No lesions. MOUTH: Clear. No discharge. THROAT: Clear. No exudate. LUNGS: Clear. No crackles. CARDIAC: S1, S2. No rub. ABDOMEN: Benign. Bowel sounds positive. GENITALIA/RECTUM: [place] absent. BACK/EXTREMITIES: Edema 0+. NEUROLOGICAL: Alert and motor intact. LABORATORY DATA: Labs show hemoglobin 12.7. Creatinine 2.8. ASSESSMENT AND PLAN: 1. Acute kidney injury, improved. 2. Hypertension, stable. 3. Anemia, stable. 4. Chronic kidney disease, stage 4, stable. 5. Hypokalemia. Recommend 40 mEq of potassium by mouth. Job ID: [id number]
[2018-09-20] MEDS ORDERED: Potassium Chloride 40 MEQ in Sodium Chloride 0.9% 250 ML 250 ML IVPB SCH (13:00)
[2018-09-20] MEDS: Vancomycin HCl 25 MG/ML Oral PO SCH ×3 (13:07→22:02)
[2018-09-20] MEDS: Atorvastatin Calcium 40 MG TAB PO SCH (21:44)
[2018-09-20] MEDS: Donepezil HCl 5 MG TAB PO SCH (21:44)
[2018-09-21] MEDS: Sodium Chloride 0.9% 1,000 ML IV SCH (01:49)
[2018-09-21] MEDS: Levothyroxine Sodium 75 MCG TAB PO SCH (05:19)
[2018-09-21 06:36] LABS: Anion Gap 11 mmol/L (10-20); BUN (Urea Nitrogen) 38 mg/dL (8.4-25.7); Calc. Creatinine Clearance 20 mL/min (70-130); Calcium 8.1 mg/dL (7.8-10.44); Carbon Dioxide 18 mmol/L (23-31); Chloride 115 mmol/L (98-107); Estimated GFR-MDRD 31; Glucose 90 mg/dL (83-110); Potassium 3.5 mmol/L (3.5-5.1); Sodium 140 mmol/L (136-145)
[2018-09-21] MEDS: Aspirin 81 mg Enteric Coated Tablet PO SCH (09:26)
[2018-09-21] MEDS: Tamsulosin HCl 0.4 MG CAP PO SCH (09:26)
[2018-09-21] MEDS: Amlodipine 5 MG TAB PO SCH (09:26)
[2018-09-21] MEDS: Clopidogrel Bisulfate 75 MG TAB PO SCH (09:26)
[2018-09-21] MEDS: Finasteride 5 MG TAB PO SCH (09:26)
[2018-09-21] MEDS: Saccharomyces boulardii 250 MG CAP PO SCH (09:27)
[2018-09-21] MEDS: Gabapentin 300 MG CAP PO SCH (09:27)
[2018-09-21] MEDS: Vancomycin HCl 25 MG/ML Oral PO SCH ×2 (09:27→14:27)
[2018-09-21] MEDS: Heparin 5,000 UNITS/ML VIAL SC SCH (09:27)
--- NOTE | 2018-09-21 11:59 | PRG ---
DATE OF SERVICE: 09/21/2018 SUBJECTIVE: This is an 88-year-old gentleman, being seen for acute kidney injury. The patient denied nausea, vomiting, or chest pain. OBJECTIVE: CONSTITUTIONAL: The patient is awake, alert. VITAL SIGNS: Afebrile. Pulse 60, breathing 16, blood pressure 127/64. GENERAL APPEARANCE AND MENTAL STATUS: Fair. HEAD/NECK: Normocephalic. Atraumatic. EYES: EOMI. No deformity. EARS: Clear. No ulcers. NOSE: Intact. No lesions. MOUTH: Clear. No discharge. THROAT: Clear. No exudate. LUNGS: Clear. No crackles. CARDIAC: S1, S2. No rub. ABDOMEN: Benign. Bowel sounds positive. GENITALIA/RECTUM: [place] absent. BACK/EXTREMITIES: Edema 0+. NEUROLOGICAL: Alert and motor intact. SKIN: LYMPHATICS: LABORATORY DATA: Lab showed hemoglobin of 12.7. Creatinine 2.0. ASSESSMENT: 1. Acute kidney injury, improved. 2. Hypertension, stable. 3. Anemia, stable. 4. Chronic kidney disease, stage 3, stable. No indication for dialysis. Job ID: [id number]
[2018-09-21 12:05] VITALS: BP 121/63; TEMP 97.4
--- NOTE | 2018-09-21 16:51 | DIS ---
DATE OF ADMISSION: 09/20/2018 DATE OF DISCHARGE: 09/21/2018 PRIMARY CARE PHYSICIAN: Dr. Bhandari. DISCHARGE DIAGNOSES: 1. Clostridium difficile diarrhea. 2. Acute renal insufficiency on chronic kidney disease. 3. Dehydration secondary to #1. 4. Hypokalemia secondary to #1, resolved. 5. Benign prostatic hyperplasia. 6. Coronary artery disease. 7. Chronic systolic heart failure. 8. Dyslipidemia. DISCHARGE MEDICATIONS: Vancomycin 125 mg q.i.d. for 10 more days. Resume home medications as in [facility]. No changes were made. IN-HOUSE CONSULTATION: Nephrology, Dr. Knowles. PROCEDURES DONE IN THE HOSPITAL: None except for chest x-ray on admission, which was unremarkable. HISTORY OF PRESENTING ILLNESS: Mr. Torres is a very pleasant 88-year-old male with past medical history of chronic kidney disease, BPH, coronary artery disease, chronic systolic heart failure, and some senile dementia, who presented to the emergency room with complaints of generalized weakness and excessive diarrhea. He was found to be in acute kidney insufficiency, likely secondary to a diarrheal illness. He was started on IV fluids. He was also found to be hypokalemic, which was replaced. Please see admission history and physical for further details. HOSPITAL COURSE: The patient was continued on IV fluid resuscitation and stool studies were sent. It did come back positive for C diff, so he was started on oral vancomycin with significant improvement in his symptoms. He was monitored until he was able to take orals adequately. As of this morning, he was able to tolerate a regular diet and IV fluids will be stopped. The is eager to take him home. Home health will be arranged for him prior to discharge as he has had a significant weakness because of this illness. Discharge plan was discussed with the as the patient has some senile dementia. However, the patient denies any abdominal pain. His diarrhea has almost stopped. He has no nausea or vomiting. Dr. Knowles followed the patient along in the hospital. His renal function has improved. His admission creatinine was 3.08, which is down to 2.05 today. All the other workup is unremarkable except for positive C diff. He was seen and examined prior to discharge. PHYSICAL EXAMINATION: This morning; VITAL SIGNS: Temperature 97.4, pulse of 55, respirations 15, saturating 95% on room air, and blood pressure 121/63. GENERAL: In no acute distress. Awake, alert, and oriented x3. CHEST: Clear to auscultation bilaterally. Rate and rhythm, regular. ABDOMEN: Soft, nontender, nondistended, with positive bowel sounds. Once the home health is arranged, the patient will be discharged home with his who is also going to employe care providers for her . TIME SPENT: Total time spent in the discharge of this patient, 33 minutes. Job ID: [id number]
== END 2018-09-21 14:53 | disposition home health service (06) | DRG 372 ==
LOC: ERS 12:39 → ERHOLD 15:05 → 2SW 16:37 → OBSVTOIN 09-20 11:58 → 2NO 09-20 15:58
PROVIDERS: ADMIT Internal Medicine; ATTEND Internal Medicine
DX: A04.72 Enterocolitis due to Clostridium difficile, not specified as recurrent (principal); N18.4 Chronic kidney disease, stage 4 (severe); N17.9 Acute kidney failure, unspecified; E87.2 Acidosis; I50.22 Chronic systolic (congestive) heart failure; I13.0 Hypertensive heart and chronic kidney disease with heart failure and stage 1 through stage 4 chronic kidney disease, or unspecified chronic kidney disease; I25.10 Atherosclerotic heart disease of native coronary artery without angina pectoris; I73.9 Peripheral vascular disease, unspecified; E03.9 Hypothyroidism, unspecified; F03.90 Unspecified dementia, unspecified severity, without behavioral disturbance, psychotic disturbance, mood disturbance, and anxiety; E78.5 Hyperlipidemia, unspecified; N40.0 Benign prostatic hyperplasia without lower urinary tract symptoms; E86.0 Dehydration; D64.9 Anemia, unspecified; E87.6 Hypokalemia; Z89.421 Acquired absence of other right toe(s); Z98.49 Cataract extraction status, unspecified eye; Z90.49 Acquired absence of other specified parts of digestive tract; Z98.890 Other specified postprocedural states; Z88.5 Allergy status to narcotic agent; Z87.891 Personal history of nicotine dependence; Z79.82 Long term (current) use of aspirin; Z79.02 Long term (current) use of antithrombotics/antiplatelets; Z79.899 Other long term (current) drug therapy
CPT/HCPCS: 36415; 71045; 80048; 80053; 81003; 83630; 83690; 83735; 84443; 84484; 85025; 87045; 87046; 87324; 87328; 87329; 87449; 87493; 87899; 93005; 96360; J1644; J3480; J7050

== ENCOUNTER 2018-11-18 16:05 | Emergency (ER) | payer MEDICARE, MEDICAID ==
--- NOTE | 2018-11-18 16:44 | RAD ---
FExam: Chest one view HISTORY:Bradycardia Comparison: 09/19/2018 FINDINGS: Cardiac silhouette:Normal. Stable density projecting along the left paraspinal region which may repre sent accentuation of the descending thoracic aorta. Pulmonary vessels: Normal Costophrenic angles: Probable small left-sided effusion with blunting of the left costophrenic angle, unchanged. LUNGS: Presumed chronic changes in the lung bases, left greater than right. Calcified granuloma in th e left upper lobe. Pneumothorax: None Osseous abnormalities: None IMPRESSION: Presumed chronic changes in the lung bases as described above. When compared to the previous examinat ion, no significant change.
[2018-11-18 17:08] LABS: #Basophils 0.1 thou/uL (0.0-0.2); #Eosinphils 1.7 thou/uL (0.0-0.7); #Monocytes 0.6 thou/uL (0.11-0.59); #Neutrophils 4.2 thou/uL (1.40-6.50); %Basophils 0.8 % (0.0-1.0); %Eosinophils 17.7 % (0.0-10.0); %Lymphocytes 31.5 % (21.0-51.0); %Monocytes 6.4 % (0.0-10.0); %Neutrophils 43.6 % (42.0-75.0); Hemoglobin 12.5 g/dL (14.0-18.0); Mean Corpuscular HGB CONC 32.6 g/dL (32.0-36.0); Mean Corpuscular Hemoglobin 29.7 pg (27.0-31.0); Mean Corpuscular Volume 90.9 fL (78.0-98.0); Mean Platelet Volume 7.2 fL (7.4-10.4); Platelet Count 221 thou/uL (130-400); Red Blood Cell (RBC) Count 4.23 mill/uL (4.70-6.10); White Blood Cell (WBC) Count 9.6 thou/uL (4.8-10.8)
[2018-11-18 17:26] LABS: ALT (SGPT) 16 U/L (8-55); AST (SGOT) 18 U/L (5-34); Alkaline Phosphatase 90 U/L (40-150); Anion Gap 14 mmol/L (10-20); BUN (Urea Nitrogen) 42 mg/dL (8.4-25.7); Bilirubin, Total 0.4 mg/dL (0.2-1.2); Calc. Creatinine Clearance 0 mL/min (70-130); Calcium 9.2 mg/dL (7.8-10.44); Carbon Dioxide 23 mmol/L (23-31); Chloride 109 mmol/L (98-107); Estimated GFR-MDRD 24; Globulin 3.3 g/dL (2.4-3.5); Glucose 119 mg/dL (83-110); Lipase 33 U/L (8-78); Potassium 3.8 mmol/L (3.5-5.1); Protein, Total 7.3 g/dL (5.8-8.1); Sodium 142 mmol/L (136-145)
== END 2018-11-18 18:54 | disposition home or self-care (01) ==
LOC: SCSER 16:05
DX: R00.1 Bradycardia, unspecified (principal); E86.0 Dehydration; N28.9 Disorder of kidney and ureter, unspecified; I10 Essential (primary) hypertension; I25.2 Old myocardial infarction; Z79.899 Other long term (current) drug therapy
CPT/HCPCS: 36415; 71045; 80053; 83690; 84443; 84484; 85025; 93005